=== PATIENT | female | born 1950 | race Caucasian/White ===

== ENCOUNTER 2016-11-18 11:57 | Outpatient (CLI) | payer OTHER ==
[~2016-11-18] VITALS: Ht 154.9 cm; Wt 60.0 kg
[~2016-11-18 11:57] MED LIST: /TIOT18INH; ACTO30TA; ALBU17IN INH; ALEVE PO; AMIT25TA PO; ASPI1TAB PO; ASPI81TA7 PO; ASPI81TAEC PO; ATOR1TAB21 PO; BABY81CH; CHAN0.5P; CIPR25SS; CIPR500T89 PO; CIPRHCOTIC; COLA100C PO; DEXA4TA PO; DULC5TAB PO; ENOX60IN3 SC; FLAG500T; FLAG500T PO; INSUDET SC; INSUH10VL SC; INSUH10VL SQ; LASI40TA PO; LEVA0.636 INH; LEVA31IN INH; LEXA5TAB13 PO; LISI-542 PO; LISI5TAB; LISI5TAB PO; LOVE0.4I2 SC; MEGE40TA PO; METF1000 PO; METFORMIN; MIRA3350 PO; NORCOBULK PO; NOVOLOG100 MG/ML; NPH INSULIN; POTA10CA PO; SODIUM CHLORIDE 0.9% INJ 10 ML SYR IV SCH; SPIR1CAP INH; SPIRIVA INH; TYLE650T30 PO; VYTO10TA41 PO; VYTO10TA5
[2016-11-18] MEDS ORDERED: POTASSIUM CHLORIDE IV ONE (12:30)
[2016-11-18] MEDS ORDERED: NS IV ONE (12:30)
[2016-11-18] MEDS ORDERED: MAGNESIUM SULFATE IV ONE (12:30)
== END 2016-11-18 14:50 | disposition home or self-care (01) ==
LOC: M INFU 11:57
PROVIDERS: ATTEND Internal Medicine
DX: C34.90 Malignant neoplasm of unspecified part of unspecified bronchus or lung (principal); C79.31 Secondary malignant neoplasm of brain; C79.82 Secondary malignant neoplasm of genital organs; Z79.4 Long term (current) use of insulin; Z79.899 Other long term (current) drug therapy; Z88.7 Allergy status to serum and vaccine; Z88.0 Allergy status to penicillin
CPT/HCPCS: 96360; 96361; J3475

== ENCOUNTER 2016-11-21 12:02 | Outpatient (CLI) | payer OTHER ==
[~2016-11-21 12:02] MED LIST changes: +MAGNESIUM SULFATE IV SCH; +NS IV SCH; +POTASSIUM CHLORIDE IV SCH
[2016-11-21 12:30] LABS: BASO % 0.8 % (0.0-1.0); EOS % 1.6 % (0.0-3.0); LARGE UNSTAINED CELL # 0.2 K/mm3 (0.0-0.4); LARGE UNSTAINED CELL % 5.4 % (0.0-4.0); LYMPH # 0.9 K/mm3 (1.5-4.5); LYMPH % 22.5 % (24.0-44.0); MEAN CORPUSCULAR HEMOGLOBIN 34.3 pg (27.0-33.0); MEAN CORPUSCULAR HGB CONC 32.3 g/dl (32.0-36.5); MEAN CORPUSCULAR VOLUME 106.3 fl (80.0-96.0); MONO # 0.3 K/mm3 (0.0-0.8); NEUTROPHILS # 2.1 K/mm3 (1.8-7.7); NEUTROPHILS % 60.6 % (36.0-66.0); PLATELET COUNT, AUTOMATED 214 k/mm3 (150-450); RED CELL DISTRIBUTION WIDTH 21.6 % (11.5-14.5); WHITE BLOOD COUNT 3.4 K/mm3 (4.0-10.0)
[2016-11-21 13:20] LABS: ALBUMIN 3.2 GM/DL (3.2-5.2); ALBUMIN/GLOBULIN RATIO 1.07 (1.00-1.93); ALKALINE PHOSPHATASE 75 U/L (45-117); ALT/SGPT 16 U/L (12-78); ANION GAP 11 MEQ/L (8-16); AST/SGOT 13 U/L (15-37); BILIRUBIN,TOTAL 0.1 MG/DL (0.2-1.0); BLOOD UREA NITROGEN 9 MG/DL (7-18); CALCIUM LEVEL 9.2 MG/DL (8.8-10.2); CARBON DIOXIDE LEVEL 28 MEQ/L (21-32); CHLORIDE LEVEL 103 MEQ/L (98-107); CREATININE FOR GFR 0.79 MG/DL (0.55-1.02); GLOMERULAR FILTRATION RATE > 60.0 (>45); GLUCOSE, FASTING 265 MG/DL (80-110); MAGNESIUM LEVEL 1.9 MG/DL (1.8-2.4); PHOSPHORUS LEVEL 4.1 MG/DL (2.5-4.9); POTASSIUM SERUM 4.4 MEQ/L (3.5-5.1); SODIUM LEVEL 142 MEQ/L (136-145); TOTAL PROTEIN 6.2 GM/DL (6.4-8.2)
== END 2016-11-21 14:30 | disposition home or self-care (01) ==
LOC: M INFU 12:02
PROVIDERS: ATTEND Internal Medicine
DX: C34.90 Malignant neoplasm of unspecified part of unspecified bronchus or lung (principal); C79.31 Secondary malignant neoplasm of brain
CPT/HCPCS: 80053; 83735; 84100; 85025; 96374; 96375; J3475

== ENCOUNTER 2016-11-24 12:05 | Outpatient (CLI) | payer OTHER ==
[~2016-11-24] VITALS: Ht 154.9 cm; Wt 60.0 kg
[~2016-11-24 12:05] MED LIST changes: -MAGNESIUM SULFATE IV SCH; -NS IV SCH; -POTASSIUM CHLORIDE IV SCH
[2016-11-24] MEDS ORDERED: NS IV SCH (12:30)
[2016-11-24] MEDS ORDERED: MAGNESIUM SULFATE IV SCH (12:30)
[2016-11-24] MEDS ORDERED: POTASSIUM CHLORIDE IV SCH (12:30)
== END 2016-11-24 15:00 | disposition home or self-care (01) ==
LOC: M INFU 12:05
PROVIDERS: ATTEND Internal Medicine
DX: C34.90 Malignant neoplasm of unspecified part of unspecified bronchus or lung (principal); C79.31 Secondary malignant neoplasm of brain; Z79.82 Long term (current) use of aspirin; Z79.899 Other long term (current) drug therapy; Z79.4 Long term (current) use of insulin; Z88.0 Allergy status to penicillin; Z88.7 Allergy status to serum and vaccine
CPT/HCPCS: 96360; 96361; J3475

== ENCOUNTER → 2016-11-26 | Outpatient (CLI) | payer OTHER ==
[~2016-11-26] MED LIST changes: -SODIUM CHLORIDE 0.9% INJ 10 ML SYR IV SCH
== END ==
LOC: M ONCR 13:55
PROVIDERS: ATTEND Radiology Radiation Oncology
DX: C34.02 Malignant neoplasm of left main bronchus (principal); C79.31 Secondary malignant neoplasm of brain

== ENCOUNTER 2016-11-27 12:05 | Outpatient (CLI) | payer OTHER ==
[~2016-11-27] VITALS: Ht 154.9 cm; Wt 60.0 kg
[~2016-11-27 12:05] MED LIST changes: +SODIUM CHLORIDE 0.9% INJ 10 ML SYR IV SCH
[2016-11-27] MEDS ORDERED: MAGNESIUM SULFATE IV SCH (13:00)
[2016-11-27] MEDS ORDERED: POTASSIUM CHLORIDE IV SCH (13:00)
[2016-11-27] MEDS ORDERED: NS IV SCH (13:00)
[2016-11-27 13:30] LABS: ALBUMIN 3.3 GM/DL (3.2-5.2); ALBUMIN/GLOBULIN RATIO 1.03 (1.00-1.93); ALKALINE PHOSPHATASE 82 U/L (45-117); ALT/SGPT 19 U/L (12-78); ANION GAP 8 MEQ/L (8-16); AST/SGOT 14 U/L (15-37); BILIRUBIN,TOTAL < 0.1 MG/DL (0.2-1.0); BLOOD UREA NITROGEN 12 MG/DL (7-18); CALCIUM LEVEL 9.4 MG/DL (8.8-10.2); CARBON DIOXIDE LEVEL 31 MEQ/L (21-32); CHLORIDE LEVEL 102 MEQ/L (98-107); CREATININE FOR GFR 0.82 MG/DL (0.55-1.02); GLOMERULAR FILTRATION RATE > 60.0 (>45); GLUCOSE, FASTING 300 MG/DL (80-110); PHOSPHORUS LEVEL 4.5 MG/DL (2.5-4.9); POTASSIUM SERUM 4.6 MEQ/L (3.5-5.1); SODIUM LEVEL 141 MEQ/L (136-145); TOTAL PROTEIN 6.5 GM/DL (6.4-8.2)
[2016-11-27 13:51] LABS: BASO % 0.6 % (0.0-1.0); LARGE UNSTAINED CELL # 0.2 K/mm3 (0.0-0.4); LARGE UNSTAINED CELL % 3.5 % (0.0-4.0); LYMPH % 20.8 % (24.0-44.0); MEAN CORPUSCULAR HEMOGLOBIN 34.1 pg (27.0-33.0); MEAN CORPUSCULAR HGB CONC 31.8 g/dl (32.0-36.5); MONO # 0.5 K/mm3 (0.0-0.8); MONO % 12.4 % (0.0-5.0); NEUTROPHILS # 2.6 K/mm3 (1.8-7.7); NEUTROPHILS % 61.7 % (36.0-66.0); PLATELET COUNT, AUTOMATED 374 k/mm3 (150-450); RED CELL DISTRIBUTION WIDTH 21.3 % (11.5-14.5); WHITE BLOOD COUNT 4.3 K/mm3 (4.0-10.0)
[2016-11-27 13:56] LABS: ADD MORPHOLOGY? YES
[2016-11-27 14:35] LABS: ANISOCYTOSIS 2+; HOWELL-JOLLY BODIES 1+; HYPOCHROMASIA 2+
[2016-11-27 14:36] LABS: ACANTHOCYTES 1+
[2016-11-27 14:37] LABS: CRENATED RBC 1+
== END 2016-11-27 14:45 | disposition home or self-care (01) ==
LOC: M INFU 12:05
PROVIDERS: ATTEND Internal Medicine
DX: C34.90 Malignant neoplasm of unspecified part of unspecified bronchus or lung (principal); C79.31 Secondary malignant neoplasm of brain; Z79.82 Long term (current) use of aspirin; Z79.899 Other long term (current) drug therapy; Z79.4 Long term (current) use of insulin; Z88.7 Allergy status to serum and vaccine; Z88.0 Allergy status to penicillin
CPT/HCPCS: 36415; 80053; 83735; 84100; 85025; 96360; 96361; J3475

== ENCOUNTER 2016-12-01 11:59 | Outpatient (CLI) | payer OTHER ==
[~2016-12-01] VITALS: Ht 154.9 cm; Wt 60.0 kg
[2016-12-01] MEDS ORDERED: POTASSIUM CHLORIDE IV SCH (12:30)
[2016-12-01] MEDS ORDERED: MAGNESIUM SULFATE IV SCH (12:30)
[2016-12-01] MEDS ORDERED: NS IV SCH (12:30)
== END 2016-12-01 15:00 | disposition home or self-care (01) ==
LOC: M INFU 11:59
PROVIDERS: ATTEND Internal Medicine
DX: C34.90 Malignant neoplasm of unspecified part of unspecified bronchus or lung (principal); C79.31 Secondary malignant neoplasm of brain; Z79.899 Other long term (current) drug therapy; Z88.7 Allergy status to serum and vaccine; Z88.0 Allergy status to penicillin
CPT/HCPCS: 96360; 96361; J3475

== ENCOUNTER → 2016-12-02 | Outpatient (CLI) | payer OTHER ==
[~2016-12-02] MED LIST changes: +ISOVUE-370 76% 100ML VIAL (Q9967) As Ordered ONE; -SODIUM CHLORIDE 0.9% INJ 10 ML SYR IV SCH
--- NOTE | 2016-12-02 12:26 | REP ---
WHOLE BODY RADIONUCLIDE BONE SCAN: HISTORY: Left leg and hip pain. History of lung carcinoma. The patient gives a history of bilateral humerus fractures. Comparison radiographs of the humerus were obtained bilaterally in April 06, 2016. TECHNIQUE: 22.0 mCi technetium 99m MDP is injected and standard whole body imaging is acquired. SCINTIGRAPHIC FINDINGS: There is intensely increased uptake in an obliquely oriented distribution in the proximal diaphysis of the right humerus corresponding to the obliquely oriented comminuted fracture seen in April 06, 2016 prior radiographs. There is also increased uptake in the region of the greater tuberosity of the left proximal humerus at the left shoulder. This corresponds to the location of the left proximal humeral fracture. There is mild degenerative uptake in the acromioclavicular joints bilaterally. There is uptake in bilateral kidneys and in the urinary bladder. No other abnormal skeletal uptake is appreciated. IMPRESSION: Increased uptake in the proximal humeral diaphysis on the right and in the greater tuberosity region of the proximal humerus on the left corresponding with fractures documented previously. No other abnormal skeletal uptake. Signed by Anshul Shaikh MD 12/02/2016 02:33 P
--- NOTE | 2016-12-03 08:59 | REP ---
Clinical: Lung cancer. Follow-up. Technique: Axial contrast enhanced images from the thoracic inlet to the upper abdomen using 100 ml Isovue 370 intravenous contrast material with coronal and sagittal re-formations. Comparison: 08/13/2016. Findings: Previously identified large complex enhancing and partially necrotic left hilar mass lesion appears to have nearly completely regressed and the same area as a small residual necrotic component measuring approximate 1.5 cm maximal diameter previously measuring approximately 4.8 cm maximal diameter. There is continued evidence for moderate left upper lobe consolidation as well as minimal lingular consolidation and trace left basilar atelectasis. Small areas of subpleural density along the posterior left lung are nonspecific and similar to prior examination. The lungs are otherwise well aerated and without further, new area of mass lesion. No pleural effusion. No pneumothorax. Tracheobronchial tree is patent. Mediastinal and hilar adenopathy remains stable with right hilar lymph nodes again measuring approximately 2.0 cm. Heart and pericardium are unchanged. Thoracic aorta demonstrates atherosclerotic changes without aneurysm or dissection. Musculoskeletal structures are intact. Left adrenal lesion is increased in size now measuring 2.5 cm diameter. Impression: 1. Previously noted left hilar mass considerably decreased in size now measuring approximately 1.5 cm maximal diameter. 2. Left upper lobe and lingular hide consolidations with minimal left basilar atelectasis. 3. 2.5 cm left adrenal lesion suspicious for metastatic focus and increased in size from prior examination. Signed by Yobany Moffett MD 12/03/2016 08:50 A
== END ==
LOC: M RAD 07:49
PROVIDERS: ATTEND Radiology Radiation Oncology
DX: C34.90 Malignant neoplasm of unspecified part of unspecified bronchus or lung (principal); M25.552 Pain in left hip

== ENCOUNTER 2016-12-04 12:02 | Outpatient (CLI) | payer OTHER ==
[~2016-12-04 12:02] MED LIST changes: +MAGNESIUM SULFATE IV SCH; +NS IV SCH; +POTASSIUM CHLORIDE IV SCH; +SODIUM CHLORIDE 0.9% INJ 10 ML SYR IV SCH
[2016-12-04 12:46] LABS: BASO % 0.3 % (0.0-1.0); EOS % 0.6 % (0.0-3.0); LARGE UNSTAINED CELL # 0.1 K/mm3 (0.0-0.4); LARGE UNSTAINED CELL % 2.6 % (0.0-4.0); LYMPH # 0.9 K/mm3 (1.5-4.5); LYMPH % 17.1 % (24.0-44.0); MEAN CORPUSCULAR HEMOGLOBIN 33.7 pg (27.0-33.0); MEAN CORPUSCULAR HGB CONC 31.6 g/dl (32.0-36.5); MEAN CORPUSCULAR VOLUME 106.6 fl (80.0-96.0); MONO # 0.6 K/mm3 (0.0-0.8); MONO % 10.2 % (0.0-5.0); NEUTROPHILS # 3.7 K/mm3 (1.8-7.7); NEUTROPHILS % 69.2 % (36.0-66.0); PLATELET COUNT, AUTOMATED 418 k/mm3 (150-450); WHITE BLOOD COUNT 5.4 K/mm3 (4.0-10.0)
[2016-12-04 13:14] LABS: ALBUMIN 3.1 GM/DL (3.2-5.2); ALBUMIN/GLOBULIN RATIO 0.94 (1.00-1.93); ALKALINE PHOSPHATASE 71 U/L (45-117); ALT/SGPT 17 U/L (12-78); ANION GAP 8 MEQ/L (8-16); AST/SGOT 14 U/L (15-37); BILIRUBIN,TOTAL < 0.1 MG/DL (0.2-1.0); BLOOD UREA NITROGEN 9 MG/DL (7-18); CARBON DIOXIDE LEVEL 30 MEQ/L (21-32); CHLORIDE LEVEL 104 MEQ/L (98-107); CREATININE FOR GFR 0.71 MG/DL (0.55-1.02); GLOMERULAR FILTRATION RATE > 60.0 (>45); GLUCOSE, FASTING 232 MG/DL (80-110); MAGNESIUM LEVEL 1.9 MG/DL (1.8-2.4); POTASSIUM SERUM 4.6 MEQ/L (3.5-5.1); SODIUM LEVEL 142 MEQ/L (136-145); TOTAL PROTEIN 6.4 GM/DL (6.4-8.2)
== END 2016-12-04 14:45 | disposition home or self-care (01) ==
LOC: M INFU 12:02
PROVIDERS: ATTEND Internal Medicine
DX: C34.90 Malignant neoplasm of unspecified part of unspecified bronchus or lung (principal); C79.31 Secondary malignant neoplasm of brain; E83.42 Hypomagnesemia; D64.9 Anemia, unspecified; Z88.0 Allergy status to penicillin; Z88.7 Allergy status to serum and vaccine; Z79.82 Long term (current) use of aspirin; Z79.899 Other long term (current) drug therapy; Z79.4 Long term (current) use of insulin
CPT/HCPCS: 36415; 80053; 83735; 84100; 85025; 96360; 96361; J3475

== ENCOUNTER → 2016-12-04 | Outpatient (CLI) | payer OTHER ==
[~2016-12-04] MED LIST changes: -ISOVUE-370 76% 100ML VIAL (Q9967) As Ordered ONE
== END ==
LOC: M ONCR 13:52
PROVIDERS: ATTEND Radiology Radiation Oncology
DX: C34.90 Malignant neoplasm of unspecified part of unspecified bronchus or lung (principal)

== ENCOUNTER 2016-12-08 12:10 | Outpatient (CLI) | payer OTHER ==
[~2016-12-08 12:10] MED LIST changes: -MAGNESIUM SULFATE IV SCH; -NS IV SCH; -POTASSIUM CHLORIDE IV SCH
[2016-12-08] MEDS ORDERED: POTASSIUM CHLORIDE IV ONE (12:15)
[2016-12-08] MEDS ORDERED: MAGNESIUM SULFATE IV ONE (12:15)
[2016-12-08] MEDS ORDERED: NS IV ONE (12:15)
== END 2016-12-08 14:45 | disposition home or self-care (01) ==
LOC: M INFU 12:10
PROVIDERS: ATTEND Internal Medicine
DX: C34.90 Malignant neoplasm of unspecified part of unspecified bronchus or lung (principal); C79.31 Secondary malignant neoplasm of brain; Z79.899 Other long term (current) drug therapy; Z79.82 Long term (current) use of aspirin; Z79.4 Long term (current) use of insulin; Z88.0 Allergy status to penicillin; Z88.7 Allergy status to serum and vaccine
CPT/HCPCS: 96360; 96361; J3475

== ENCOUNTER 2016-12-11 11:51 | Outpatient (CLI) | payer OTHER ==
[~2016-12-11] VITALS: Ht 154.9 cm; Wt 60.0 kg
[~2016-12-11 11:51] MED LIST changes: +MAGNESIUM SULFATE IV ONE; +NS IV ONE; +POTASSIUM CHLORIDE IV ONE
[2016-12-11 13:16] LABS: ALBUMIN 3.1 GM/DL (3.2-5.2); ALBUMIN/GLOBULIN RATIO 0.91 (1.00-1.93); ALKALINE PHOSPHATASE 70 U/L (45-117); ALT/SGPT 18 U/L (12-78); ANION GAP 5 MEQ/L (8-16); AST/SGOT 13 U/L (15-37); BILIRUBIN,TOTAL 0.2 MG/DL (0.2-1.0); BLOOD UREA NITROGEN 11 MG/DL (7-18); CALCIUM LEVEL 8.9 MG/DL (8.8-10.2); CARBON DIOXIDE LEVEL 32 MEQ/L (21-32); CHLORIDE LEVEL 104 MEQ/L (98-107); CREATININE FOR GFR 0.65 MG/DL (0.55-1.02); GLOMERULAR FILTRATION RATE > 60.0 (>45); GLUCOSE, FASTING 268 MG/DL (80-110); MAGNESIUM LEVEL 1.8 MG/DL (1.8-2.4); PHOSPHORUS LEVEL 3.5 MG/DL (2.5-4.9); POTASSIUM SERUM 4.4 MEQ/L (3.5-5.1); SODIUM LEVEL 141 MEQ/L (136-145); TOTAL PROTEIN 6.5 GM/DL (6.4-8.2)
[2016-12-11 13:27] LABS: BASO # 0.2 K/mm3 (0.0-0.2); BASO % 1.9 % (0.0-1.0); EOS % 0.5 % (0.0-3.0); LARGE UNSTAINED CELL # 0.1 K/mm3 (0.0-0.4); LARGE UNSTAINED CELL % 1.2 % (0.0-4.0); LYMPH # 0.9 K/mm3 (1.5-4.5); MEAN CORPUSCULAR HEMOGLOBIN 33.8 pg (27.0-33.0); MEAN CORPUSCULAR HGB CONC 31.8 g/dl (32.0-36.5); MEAN CORPUSCULAR VOLUME 106.2 fl (80.0-96.0); MONO # 0.6 K/mm3 (0.0-0.8); MONO % 8.2 % (0.0-5.0); NEUTROPHILS # 5.9 K/mm3 (1.8-7.7); NEUTROPHILS % 77.1 % (36.0-66.0); PLATELET COUNT, AUTOMATED 400 k/mm3 (150-450); RED CELL DISTRIBUTION WIDTH 19.2 % (11.5-14.5); WHITE BLOOD COUNT 7.6 K/mm3 (4.0-10.0)
== END 2016-12-11 14:50 | disposition home or self-care (01) ==
LOC: M INFU 11:51
PROVIDERS: ATTEND Internal Medicine
DX: C34.90 Malignant neoplasm of unspecified part of unspecified bronchus or lung (principal); C79.31 Secondary malignant neoplasm of brain; E83.42 Hypomagnesemia; D64.9 Anemia, unspecified; Z79.82 Long term (current) use of aspirin; Z79.899 Other long term (current) drug therapy; Z79.4 Long term (current) use of insulin; Z88.7 Allergy status to serum and vaccine; Z88.0 Allergy status to penicillin
CPT/HCPCS: 36415; 80053; 83735; 84100; 85025; 96360; 96361; J3475

== ENCOUNTER 2016-12-16 12:05 | Outpatient (CLI) | payer OTHER | END 2016-12-16 14:45 | disposition home or self-care (01) | LOC: M INFU 12:05 | PROVIDERS: ATTEND Internal Medicine | DX: C34.90 Malignant neoplasm of unspecified part of unspecified bronchus or lung (principal); C79.31 Secondary malignant neoplasm of brain; Z79.899 Other long term (current) drug therapy; Z79.4 Long term (current) use of insulin; Z88.7 Allergy status to serum and vaccine; Z88.0 Allergy status to penicillin | CPT/HCPCS: 96360; 96361; J3475 ==

== ENCOUNTER 2016-12-18 12:06 | Outpatient (CLI) | payer OTHER ==
[2016-12-18 12:51] LABS: ALBUMIN 3.2 GM/DL (3.2-5.2); ALBUMIN/GLOBULIN RATIO 0.97 (1.00-1.93); ALKALINE PHOSPHATASE 73 U/L (45-117); ALT/SGPT 18 U/L (12-78); ANION GAP 7 MEQ/L (8-16); AST/SGOT 12 U/L (15-37); BILIRUBIN,TOTAL 0.2 MG/DL (0.2-1.0); BLOOD UREA NITROGEN 11 MG/DL (7-18); CALCIUM LEVEL 9.3 MG/DL (8.8-10.2); CARBON DIOXIDE LEVEL 31 MEQ/L (21-32); CHLORIDE LEVEL 104 MEQ/L (98-107); CREATININE FOR GFR 0.68 MG/DL (0.55-1.02); GLOMERULAR FILTRATION RATE > 60.0 (>45); GLUCOSE, FASTING 213 MG/DL (80-110); MAGNESIUM LEVEL 1.9 MG/DL (1.8-2.4); PHOSPHORUS LEVEL 4.1 MG/DL (2.5-4.9); POTASSIUM SERUM 4.6 MEQ/L (3.5-5.1); SODIUM LEVEL 142 MEQ/L (136-145); TOTAL PROTEIN 6.5 GM/DL (6.4-8.2)
[2016-12-18 13:04] LABS: BASO % 0.4 % (0.0-1.0); EOS # 0.1 K/mm3 (0.0-0.50); EOS % 1.3 % (0.0-3.0); LARGE UNSTAINED CELL # 0.2 K/mm3 (0.0-0.4); LARGE UNSTAINED CELL % 2.6 % (0.0-4.0); LYMPH # 1.1 K/mm3 (1.5-4.5); LYMPH % 17.9 % (24.0-44.0); MEAN CORPUSCULAR HEMOGLOBIN 33.1 pg (27.0-33.0); MEAN CORPUSCULAR HGB CONC 31.2 g/dl (32.0-36.5); MEAN CORPUSCULAR VOLUME 106.2 fl (80.0-96.0); MONO # 0.5 K/mm3 (0.0-0.8); MONO % 8.9 % (0.0-5.0); NEUTROPHILS # 4.1 K/mm3 (1.8-7.7); NEUTROPHILS % 68.8 % (36.0-66.0); PLATELET COUNT, AUTOMATED 415 k/mm3 (150-450); RED CELL DISTRIBUTION WIDTH 16.9 % (11.5-14.5)
== END 2016-12-18 14:45 | disposition home or self-care (01) ==
LOC: M INFU 12:06
PROVIDERS: ATTEND Internal Medicine
DX: C34.90 Malignant neoplasm of unspecified part of unspecified bronchus or lung (principal); C79.31 Secondary malignant neoplasm of brain; Z79.899 Other long term (current) drug therapy; Z79.82 Long term (current) use of aspirin; Z79.4 Long term (current) use of insulin; Z88.7 Allergy status to serum and vaccine; Z88.0 Allergy status to penicillin
CPT/HCPCS: 36415; 80053; 83735; 84100; 85025; 96360; 96361; J3475

== ENCOUNTER 2016-12-22 12:01 | Outpatient (CLI) | payer OTHER ==
[~2016-12-22] VITALS: Ht 154.9 cm; Wt 60.0 kg
== END 2016-12-22 14:50 | disposition home or self-care (01) ==
LOC: M INFU 12:01
PROVIDERS: ATTEND Internal Medicine
DX: C34.90 Malignant neoplasm of unspecified part of unspecified bronchus or lung (principal); C79.31 Secondary malignant neoplasm of brain; Z79.899 Other long term (current) drug therapy; Z79.82 Long term (current) use of aspirin; Z79.4 Long term (current) use of insulin; Z88.7 Allergy status to serum and vaccine; Z88.0 Allergy status to penicillin
CPT/HCPCS: 96360; 96361; J3475

== ENCOUNTER 2016-12-25 12:05 | Outpatient (CLI) | payer OTHER ==
[~2016-12-25] VITALS: Ht 154.9 cm; Wt 60.0 kg
[~2016-12-25 12:05] MED LIST changes: +MAGNESIUM SULFATE IV SCH; +NS IV SCH; +POTASSIUM CHLORIDE IV SCH
[2016-12-25 13:33] LABS: BASO % 0.4 % (0.0-1.0); EOS # 0.1 K/mm3 (0.0-0.50); EOS % 1.2 % (0.0-3.0); LARGE UNSTAINED CELL # 0.2 K/mm3 (0.0-0.4); LARGE UNSTAINED CELL % 3.3 % (0.0-4.0); MEAN CORPUSCULAR HEMOGLOBIN 32.8 pg (27.0-33.0); MEAN CORPUSCULAR HGB CONC 30.5 g/dl (32.0-36.5); MEAN CORPUSCULAR VOLUME 107.7 fl (80.0-96.0); MONO # 0.5 K/mm3 (0.0-0.8); MONO % 7.2 % (0.0-5.0); NEUTROPHILS # 4.7 K/mm3 (1.8-7.7); NEUTROPHILS % 72.8 % (36.0-66.0); PLATELET COUNT, AUTOMATED 377 k/mm3 (150-450); RED CELL DISTRIBUTION WIDTH 16.4 % (11.5-14.5); WHITE BLOOD COUNT 6.4 K/mm3 (4.0-10.0)
[2016-12-25 13:53] LABS: ALBUMIN 3.1 GM/DL (3.2-5.2); ALBUMIN/GLOBULIN RATIO 0.91 (1.00-1.93); ALKALINE PHOSPHATASE 75 U/L (45-117); ALT/SGPT 18 U/L (12-78); ANION GAP 7 MEQ/L (8-16); AST/SGOT 17 U/L (15-37); BILIRUBIN,TOTAL 0.1 MG/DL (0.2-1.0); BLOOD UREA NITROGEN 14 MG/DL (7-18); CARBON DIOXIDE LEVEL 30 MEQ/L (21-32); CHLORIDE LEVEL 102 MEQ/L (98-107); CREATININE FOR GFR 0.86 MG/DL (0.55-1.02); GLOMERULAR FILTRATION RATE > 60.0 (>45); GLUCOSE, FASTING 320 MG/DL (80-110); MAGNESIUM LEVEL 1.9 MG/DL (1.8-2.4); PHOSPHORUS LEVEL 4.4 MG/DL (2.5-4.9); POTASSIUM SERUM 5.1 MEQ/L (3.5-5.1); SODIUM LEVEL 139 MEQ/L (136-145); TOTAL PROTEIN 6.5 GM/DL (6.4-8.2)
[2016-12-25 13:56] LABS: ADD MORPHOLOGY? YES
[2016-12-25 14:54] LABS: ANISOCYTOSIS 1+
[2016-12-25 14:55] LABS: HYPOCHROMASIA 1+; SCHISTOCYTES 1+
== END 2016-12-25 15:05 | disposition home or self-care (01) ==
LOC: M INFU 12:05
PROVIDERS: ATTEND Internal Medicine
DX: C34.90 Malignant neoplasm of unspecified part of unspecified bronchus or lung (principal); C79.31 Secondary malignant neoplasm of brain; Z79.899 Other long term (current) drug therapy; Z79.4 Long term (current) use of insulin; Z88.7 Allergy status to serum and vaccine; Z88.0 Allergy status to penicillin
CPT/HCPCS: 36415; 80053; 83735; 84100; 85025; 96360; 96361; J3475

== ENCOUNTER 2016-12-29 12:00 | Outpatient (CLI) | payer OTHER ==
[~2016-12-29 12:00] MED LIST changes: -MAGNESIUM SULFATE IV SCH; -NS IV SCH; -POTASSIUM CHLORIDE IV SCH
== END 2016-12-29 14:30 | disposition home or self-care (01) ==
LOC: M INFU 12:00
PROVIDERS: ATTEND Internal Medicine
DX: C34.90 Malignant neoplasm of unspecified part of unspecified bronchus or lung (principal); C79.31 Secondary malignant neoplasm of brain; Z79.899 Other long term (current) drug therapy; Z79.82 Long term (current) use of aspirin; Z79.4 Long term (current) use of insulin; Z88.7 Allergy status to serum and vaccine; Z88.0 Allergy status to penicillin
CPT/HCPCS: 96360; 96361; J3475

== ENCOUNTER 2017-01-01 12:11 | Outpatient (CLI) | payer OTHER ==
[2017-01-01 12:43] LABS: BASO % 0.6 % (0.0-1.0); EOS # 0.1 K/mm3 (0.0-0.50); EOS % 1.7 % (0.0-3.0); LARGE UNSTAINED CELL # 0.2 K/mm3 (0.0-0.4); LARGE UNSTAINED CELL % 3.9 % (0.0-4.0); LYMPH # 1.1 K/mm3 (1.5-4.5); LYMPH % 18.2 % (24.0-44.0); MEAN CORPUSCULAR HEMOGLOBIN 33.2 pg (27.0-33.0); MEAN CORPUSCULAR HGB CONC 31.7 g/dl (32.0-36.5); MEAN CORPUSCULAR VOLUME 104.7 fl (80.0-96.0); MONO # 0.5 K/mm3 (0.0-0.8); MONO % 7.7 % (0.0-5.0); NEUTROPHILS % 67.8 % (36.0-66.0); PLATELET COUNT, AUTOMATED 335 k/mm3 (150-450); RED CELL DISTRIBUTION WIDTH 15.6 % (11.5-14.5); WHITE BLOOD COUNT 5.9 K/mm3 (4.0-10.0)
[2017-01-01 13:12] LABS: ALBUMIN 3.1 GM/DL (3.2-5.2); ALBUMIN/GLOBULIN RATIO 0.89 (1.00-1.93); ALKALINE PHOSPHATASE 73 U/L (45-117); ALT/SGPT 21 U/L (12-78); ANION GAP 8 MEQ/L (8-16); AST/SGOT 19 U/L (15-37); BILIRUBIN,TOTAL 0.2 MG/DL (0.2-1.0); BLOOD UREA NITROGEN 11 MG/DL (7-18); CALCIUM LEVEL 8.9 MG/DL (8.8-10.2); CARBON DIOXIDE LEVEL 29 MEQ/L (21-32); CHLORIDE LEVEL 104 MEQ/L (98-107); CREATININE FOR GFR 0.81 MG/DL (0.55-1.02); GLOMERULAR FILTRATION RATE > 60.0 (>45); GLUCOSE, FASTING 249 MG/DL (80-110); MAGNESIUM LEVEL 1.9 MG/DL (1.8-2.4); PHOSPHORUS LEVEL 4.8 MG/DL (2.5-4.9); POTASSIUM SERUM 4.8 MEQ/L (3.5-5.1); SODIUM LEVEL 141 MEQ/L (136-145); TOTAL PROTEIN 6.6 GM/DL (6.4-8.2)
[2017-01-01] MEDS ORDERED: DRON5CAP6 PO (14:36)
[2017-01-01] MEDS ORDERED: TRAM50TA2 PO (14:37)
== END 2017-01-01 15:00 | disposition home or self-care (01) ==
LOC: M INFU 12:11
PROVIDERS: ATTEND Internal Medicine
DX: E83.42 Hypomagnesemia (principal); C34.90 Malignant neoplasm of unspecified part of unspecified bronchus or lung; C79.31 Secondary malignant neoplasm of brain; D64.9 Anemia, unspecified; Z79.899 Other long term (current) drug therapy; Z79.4 Long term (current) use of insulin; Z79.82 Long term (current) use of aspirin; Z88.7 Allergy status to serum and vaccine; Z88.0 Allergy status to penicillin
CPT/HCPCS: 80053; 83735; 84100; 85025; 96360; 96361; J3475

== ENCOUNTER 2017-01-05 12:02 | Outpatient (CLI) | payer OTHER ==
[~2017-01-05] VITALS: Ht 154.9 cm; Wt 60.0 kg
[~2017-01-05 12:02] MED LIST changes: +DRON5CAP6 PO; -MAGNESIUM SULFATE IV ONE; +MAGNESIUM SULFATE IV SCH; -NS IV ONE; +NS IV SCH; -POTASSIUM CHLORIDE IV ONE; +POTASSIUM CHLORIDE IV SCH; +TRAM50TA2 PO
== END 2017-01-05 14:40 | disposition home or self-care (01) ==
LOC: M INFU 12:02
PROVIDERS: ATTEND Internal Medicine
DX: C34.90 Malignant neoplasm of unspecified part of unspecified bronchus or lung (principal); C79.31 Secondary malignant neoplasm of brain; Z79.899 Other long term (current) drug therapy; Z79.82 Long term (current) use of aspirin; Z79.4 Long term (current) use of insulin; Z88.0 Allergy status to penicillin; Z88.7 Allergy status to serum and vaccine
CPT/HCPCS: 96360; 96361; J3475

== ENCOUNTER 2017-01-08 08:56 | Outpatient (CLI) | payer OTHER ==
[~2017-01-08] VITALS: Ht 154.9 cm; Wt 60.0 kg
[~2017-01-08 08:56] MED LIST changes: +MAGNESIUM SULFATE IV ONE; -MAGNESIUM SULFATE IV SCH; +NS IV ONE; -NS IV SCH; +POTASSIUM CHLORIDE IV ONE; -POTASSIUM CHLORIDE IV SCH; -SODIUM CHLORIDE 0.9% INJ 10 ML SYR IV SCH
[2017-01-08] MEDS ORDERED: SODIUM CHLORIDE 0.9% INJ 10 ML SYR IV SCH (09:00)
[2017-01-08 10:03] LABS: BASO % 0.3 % (0.0-1.0); EOS # 0.2 K/mm3 (0.0-0.50); EOS % 2.5 % (0.0-3.0); LARGE UNSTAINED CELL # 0.2 K/mm3 (0.0-0.4); LARGE UNSTAINED CELL % 2.4 % (0.0-4.0); LYMPH % 15.1 % (24.0-44.0); MEAN CORPUSCULAR HEMOGLOBIN 32.7 pg (27.0-33.0); MEAN CORPUSCULAR VOLUME 105.4 fl (80.0-96.0); MONO # 0.6 K/mm3 (0.0-0.8); MONO % 8.1 % (0.0-5.0); NEUTROPHILS # 4.8 K/mm3 (1.8-7.7); NEUTROPHILS % 71.5 % (36.0-66.0); PLATELET COUNT, AUTOMATED 316 k/mm3 (150-450); WHITE BLOOD COUNT 6.8 K/mm3 (4.0-10.0)
[2017-01-08 10:07] LABS: ALBUMIN 3.2 GM/DL (3.2-5.2); ALKALINE PHOSPHATASE 78 U/L (45-117); ALT/SGPT 22 U/L (12-78); ANION GAP 8 MEQ/L (8-16); AST/SGOT 19 U/L (15-37); BILIRUBIN,TOTAL 0.2 MG/DL (0.2-1.0); BLOOD UREA NITROGEN 14 MG/DL (7-18); CALCIUM LEVEL 9.3 MG/DL (8.8-10.2); CARBON DIOXIDE LEVEL 31 MEQ/L (21-32); CHLORIDE LEVEL 103 MEQ/L (98-107); CREATININE FOR GFR 0.67 MG/DL (0.55-1.02); GLOMERULAR FILTRATION RATE > 60.0 (>45); GLUCOSE, FASTING 262 MG/DL (80-110); MAGNESIUM LEVEL 1.9 MG/DL (1.8-2.4); POTASSIUM SERUM 4.7 MEQ/L (3.5-5.1); SODIUM LEVEL 142 MEQ/L (136-145); TOTAL PROTEIN 6.4 GM/DL (6.4-8.2)
== END 2017-01-08 11:35 | disposition home or self-care (01) ==
LOC: M INFU 08:56
PROVIDERS: ATTEND Internal Medicine
DX: E83.42 Hypomagnesemia (principal); D64.9 Anemia, unspecified; C34.90 Malignant neoplasm of unspecified part of unspecified bronchus or lung; C79.31 Secondary malignant neoplasm of brain; Z79.899 Other long term (current) drug therapy; Z79.4 Long term (current) use of insulin; Z79.82 Long term (current) use of aspirin; Z88.0 Allergy status to penicillin; Z88.7 Allergy status to serum and vaccine
CPT/HCPCS: 36415; 80053; 83735; 84100; 85025; 96360; 96361; J3475

== ENCOUNTER 2017-01-12 12:00 | Outpatient (CLI) | payer OTHER ==
[~2017-01-12 12:00] MED LIST changes: +SODIUM CHLORIDE 0.9% INJ 10 ML SYR IV SCH
== END 2017-01-12 14:30 | disposition home or self-care (01) ==
LOC: M INFU 12:00
PROVIDERS: ATTEND Internal Medicine
DX: C34.90 Malignant neoplasm of unspecified part of unspecified bronchus or lung (principal); C79.31 Secondary malignant neoplasm of brain; Z79.899 Other long term (current) drug therapy; Z79.82 Long term (current) use of aspirin; Z79.4 Long term (current) use of insulin; Z88.7 Allergy status to serum and vaccine; Z88.0 Allergy status to penicillin
CPT/HCPCS: 96360; J3475

== ENCOUNTER 2017-01-15 12:21 | Outpatient (CLI) | payer OTHER ==
[~2017-01-15] VITALS: Ht 154.9 cm; Wt 60.0 kg
[2017-01-15 12:59] LABS: BASO % 0.7 % (0.0-1.0); EOS # 0.1 K/mm3 (0.0-0.50); EOS % 1.7 % (0.0-3.0); LARGE UNSTAINED CELL # 0.1 K/mm3 (0.0-0.4); LARGE UNSTAINED CELL % 2.2 % (0.0-4.0); LYMPH # 1.5 K/mm3 (1.5-4.5); LYMPH % 24.4 % (24.0-44.0); MEAN CORPUSCULAR HEMOGLOBIN 33.6 pg (27.0-33.0); MEAN CORPUSCULAR HGB CONC 31.9 g/dl (32.0-36.5); MEAN CORPUSCULAR VOLUME 105.2 fl (80.0-96.0); MONO # 0.4 K/mm3 (0.0-0.8); MONO % 6.4 % (0.0-5.0); NEUTROPHILS # 3.6 K/mm3 (1.8-7.7); NEUTROPHILS % 64.6 % (36.0-66.0); PLATELET COUNT, AUTOMATED 300 k/mm3 (150-450); RED CELL DISTRIBUTION WIDTH 14.9 % (11.5-14.5); WHITE BLOOD COUNT 5.6 K/mm3 (4.0-10.0)
[2017-01-15 13:54] LABS: BLOOD UREA NITROGEN 14 MG/DL (7-18); CREATININE FOR GFR 0.78 MG/DL (0.55-1.02); GLOMERULAR FILTRATION RATE > 60.0 (>45); GLUCOSE, FASTING 340 MG/DL (80-110)
[2017-01-15 13:55] LABS: ALBUMIN 3.1 GM/DL (3.2-5.2); ALBUMIN/GLOBULIN RATIO 0.94 (1.00-1.93); ALKALINE PHOSPHATASE 86 U/L (45-117); ALT/SGPT 23 U/L (12-78); ANION GAP 9 MEQ/L (8-16); AST/SGOT 25 U/L (15-37); BILIRUBIN,TOTAL 0.2 MG/DL (0.2-1.0); CALCIUM LEVEL 8.6 MG/DL (8.8-10.2); CARBON DIOXIDE LEVEL 28 MEQ/L (21-32); CHLORIDE LEVEL 101 MEQ/L (98-107); MAGNESIUM LEVEL 1.9 MG/DL (1.8-2.4); PHOSPHORUS LEVEL 3.5 MG/DL (2.5-4.9); POTASSIUM SERUM 4.7 MEQ/L (3.5-5.1); SODIUM LEVEL 138 MEQ/L (136-145); TOTAL PROTEIN 6.4 GM/DL (6.4-8.2)
== END 2017-01-15 15:00 | disposition home or self-care (01) ==
LOC: M INFU 12:21
PROVIDERS: ATTEND Internal Medicine
DX: C34.90 Malignant neoplasm of unspecified part of unspecified bronchus or lung (principal); C79.31 Secondary malignant neoplasm of brain; Z79.899 Other long term (current) drug therapy; Z79.82 Long term (current) use of aspirin; Z79.4 Long term (current) use of insulin; Z88.7 Allergy status to serum and vaccine; Z88.0 Allergy status to penicillin
CPT/HCPCS: 36415; 80053; 83735; 84100; 85025; 96360; 96361; J3475

== ENCOUNTER 2017-01-19 12:58 | Outpatient (CLI) | payer OTHER ==
[~2017-01-19] VITALS: Ht 154.9 cm; Wt 60.0 kg
[~2017-01-19 12:58] MED LIST changes: -MAGNESIUM SULFATE IV ONE; -NS IV ONE; -POTASSIUM CHLORIDE IV ONE
[2017-01-19] MEDS ORDERED: NS IV SCH (13:00)
[2017-01-19] MEDS ORDERED: MAGNESIUM SULFATE IV SCH (13:00)
[2017-01-19] MEDS ORDERED: POTASSIUM CHLORIDE IV SCH (13:00)
== END 2017-01-19 15:15 | disposition home or self-care (01) ==
LOC: M INFU 12:58
PROVIDERS: ATTEND Internal Medicine
DX: C34.90 Malignant neoplasm of unspecified part of unspecified bronchus or lung (principal); C79.31 Secondary malignant neoplasm of brain; Z88.0 Allergy status to penicillin; Z88.7 Allergy status to serum and vaccine; Z79.899 Other long term (current) drug therapy; Z79.82 Long term (current) use of aspirin; Z79.4 Long term (current) use of insulin
CPT/HCPCS: 96360; 96361; J3475

== ENCOUNTER 2017-01-22 12:04 | Outpatient (CLI) | payer OTHER ==
[~2017-01-22] VITALS: Ht 154.9 cm; Wt 60.0 kg
[~2017-01-22 12:04] MED LIST changes: +MAGNESIUM SULFATE IV ONE; +NS IV ONE; +POTASSIUM CHLORIDE IV ONE
[2017-01-22 13:11] LABS: BASO % 0.4 % (0.0-1.0); EOS # 0.1 K/mm3 (0.0-0.50); EOS % 1.8 % (0.0-3.0); LARGE UNSTAINED CELL # 0.1 K/mm3 (0.0-0.4); LARGE UNSTAINED CELL % 1.6 % (0.0-4.0); LYMPH # 1.6 K/mm3 (1.5-4.5); LYMPH % 21.5 % (24.0-44.0); MEAN CORPUSCULAR HEMOGLOBIN 33.1 pg (27.0-33.0); MEAN CORPUSCULAR HGB CONC 31.9 g/dl (32.0-36.5); MEAN CORPUSCULAR VOLUME 103.6 fl (80.0-96.0); MONO # 0.5 K/mm3 (0.0-0.8); MONO % 6.4 % (0.0-5.0); NEUTROPHILS # 4.8 K/mm3 (1.8-7.7); NEUTROPHILS % 68.3 % (36.0-66.0); PLATELET COUNT, AUTOMATED 304 k/mm3 (150-450); RED CELL DISTRIBUTION WIDTH 14.7 % (11.5-14.5)
[2017-01-22 14:02] LABS: ALBUMIN 3.2 GM/DL (3.2-5.2); ALBUMIN/GLOBULIN RATIO 1.03 (1.00-1.93); ALKALINE PHOSPHATASE 85 U/L (45-117); ALT/SGPT 23 U/L (12-78); ANION GAP 10 MEQ/L (8-16); AST/SGOT 28 U/L (15-37); BILIRUBIN,TOTAL 0.2 MG/DL (0.2-1.0); BLOOD UREA NITROGEN 16 MG/DL (7-18); CALCIUM LEVEL 9.3 MG/DL (8.8-10.2); CARBON DIOXIDE LEVEL 29 MEQ/L (21-32); CHLORIDE LEVEL 101 MEQ/L (98-107); CREATININE FOR GFR 0.69 MG/DL (0.55-1.02); GLOMERULAR FILTRATION RATE > 60.0 (>45); GLUCOSE, FASTING 271 MG/DL (80-110); PHOSPHORUS LEVEL 4.4 MG/DL (2.5-4.9); POTASSIUM SERUM 4.7 MEQ/L (3.5-5.1); SODIUM LEVEL 140 MEQ/L (136-145); TOTAL PROTEIN 6.3 GM/DL (6.4-8.2)
== END 2017-01-22 15:20 | disposition home or self-care (01) ==
LOC: M INFU 12:04
PROVIDERS: ATTEND Internal Medicine
DX: C34.90 Malignant neoplasm of unspecified part of unspecified bronchus or lung (principal); C79.31 Secondary malignant neoplasm of brain; Z79.899 Other long term (current) drug therapy; Z79.82 Long term (current) use of aspirin; Z79.4 Long term (current) use of insulin; Z88.0 Allergy status to penicillin; Z88.7 Allergy status to serum and vaccine
CPT/HCPCS: 36415; 80053; 83735; 84100; 85025; 96360; 96361; J3475

== ENCOUNTER 2017-01-26 11:46 | Outpatient (CLI) | payer OTHER ==
[~2017-01-26 11:46] MED LIST changes: -MAGNESIUM SULFATE IV ONE; -NS IV ONE; -POTASSIUM CHLORIDE IV ONE
[2017-01-26] MEDS ORDERED: MAGNESIUM SULFATE IV ONE (12:00)
[2017-01-26] MEDS ORDERED: NS IV ONE (12:00)
[2017-01-26] MEDS ORDERED: POTASSIUM CHLORIDE IV ONE (12:00)
== END 2017-01-26 15:20 | disposition home or self-care (01) ==
LOC: M INFU 11:46
PROVIDERS: ATTEND Internal Medicine
DX: C34.90 Malignant neoplasm of unspecified part of unspecified bronchus or lung (principal); C79.31 Secondary malignant neoplasm of brain; Z79.899 Other long term (current) drug therapy; Z79.82 Long term (current) use of aspirin; Z79.4 Long term (current) use of insulin; Z88.0 Allergy status to penicillin; Z88.7 Allergy status to serum and vaccine
CPT/HCPCS: 96360; 96361; J3475

== ENCOUNTER → 2017-01-27 | Outpatient (CLI) | payer OTHER ==
[~2017-01-27] MED LIST changes: +GASTROGRAFIN SOLUTION 30ML (Q9963) As Ordered ONE; +ISOVUE-370 76% 100ML VIAL (Q9967) As Ordered ONE; -SODIUM CHLORIDE 0.9% INJ 10 ML SYR IV SCH
--- NOTE | 2017-01-27 16:27 | REP ---
CT study abdomen pelvis without and with IV contrast: With oral contrast: History: Restaging small cell lung carcinoma. Comparison CT study of the abdomen and pelvis is from 08/13/2016. Also reviewed the images from chest CT 12/02/2016. CT contrast dose: 100 mL of Isovue [address] findings: There are unfortunately multiple new liver masses consistent with hepatic metastatic disease. These are distributed in the left and right lobes and range in size from 0.8 cm to 4.8 cm. They are quite numerous. The previously noted left adrenal mass is a little larger measuring 3.2 x 2.7 cm. No right adrenal mass is seen. There is metastatic lymphadenopathy in the celiac axis and periportal lymph nodes. The largest of these lymph nodes measures 2.5 x 2.0 cm. The patient is status post splenectomy and partial pancreatectomy. There is a new mass in the head of the pancreas on today's CT study consistent with a pancreatic metastasis. This measures 1.6 cm in diameter. The kidneys enhance symmetrically and remain morphologically intact. No renal mass is seen. There are multiple subcutaneous nodules in the skin of the anterior abdominal wall some of which contain air fluid levels. These are consistent with injection sites. There is mild diverticulosis of the sigmoid colon. No abdominal wall defect is seen. Bone window settings show no bony destructive lesion. Impression: There is evidence of progression in that there are innumerable hepatic metastatic lesions. There is new celiac axis and periportal lymphadenopathy and there is progression in a previously noted left adrenal mass. This is also new from the July [address] study. Signed by Anshul Shaikh MD 01/27/2017 04:59 P
--- NOTE | 2017-01-27 16:41 | REP ---
CT study of the chest with IV contrast: History: Re-stage small cell lung carcinoma. Comparison study: 12/02/2016. This prior study was read as showing a 2.5 cm new left adrenal mass suspicious for metastasis. Comparison is also made with chest CT study from 08/13/2016. CT contrast dose: 100 mL of Isovue [address] findings: There is a left subclavian [id number] with its tip in the superior vena cava. A right upper extremity contrast injection was performed. No hilar or mediastinal mass or adenopathy is observed. The previously noted pattern of fibrosis and atelectasis in the left upper lobe is somewhat improved. This is consistent with postradiation change. There is a small new nodule 4 mm in diameter in the right upper lobe on image number 35 of 96 in series 404. No new pulmonary mass lesion is seen. No bony destructive lesion is seen in the chest. Multiple hepatic metastatic lesions have developed. The left adrenal gland is a little larger measuring 3.1 cm in diameter. Impression: New liver metastases. Left adrenal mass has enlarged somewhat since the prior study. Improved postradiation change left lung. There is a new nodule in the right upper lobe of the lung measuring 0.4 cm in diameter. This is visible on image number 35 of 96 in series 404 of today's study. No other pulmonary nodule is appreciated. Signed by Anshul Shaikh MD 01/27/2017 05:00 P
== END ==
LOC: M RAD 12:41
PROVIDERS: ATTEND Internal Medicine Hematology & Oncology
DX: C34.90 Malignant neoplasm of unspecified part of unspecified bronchus or lung (principal)

== ENCOUNTER 2017-01-29 11:56 | Outpatient (CLI) | payer OTHER ==
[~2017-01-29] VITALS: Ht 154.9 cm; Wt 60.0 kg
[~2017-01-29 11:56] MED LIST changes: -GASTROGRAFIN SOLUTION 30ML (Q9963) As Ordered ONE; -ISOVUE-370 76% 100ML VIAL (Q9967) As Ordered ONE; +SODIUM CHLORIDE 0.9% INJ 10 ML SYR IV SCH
[2017-01-29] MEDS ORDERED: MAGNESIUM SULFATE IV SCH (12:00)
[2017-01-29] MEDS ORDERED: NS IV SCH (12:00)
[2017-01-29] MEDS ORDERED: POTASSIUM CHLORIDE IV SCH (12:00)
== END 2017-01-29 14:35 | disposition home or self-care (01) ==
LOC: M INFU 11:56
PROVIDERS: ATTEND Internal Medicine
DX: C34.90 Malignant neoplasm of unspecified part of unspecified bronchus or lung (principal); C79.31 Secondary malignant neoplasm of brain; Z79.899 Other long term (current) drug therapy; Z79.82 Long term (current) use of aspirin; Z79.4 Long term (current) use of insulin; Z88.7 Allergy status to serum and vaccine; Z88.0 Allergy status to penicillin
CPT/HCPCS: 96360; 96361; J3475

== ENCOUNTER 2017-02-03 11:53 | Outpatient (CLI) | payer OTHER ==
[2017-02-03] MEDS ORDERED: NS IV ONE (12:00)
[2017-02-03] MEDS ORDERED: MAGNESIUM SULFATE IV ONE (12:00)
[2017-02-03] MEDS ORDERED: POTASSIUM CHLORIDE IV ONE (12:00)
== END 2017-02-03 14:30 | disposition home or self-care (01) ==
LOC: M INFU 11:53
PROVIDERS: ATTEND Internal Medicine
DX: C34.90 Malignant neoplasm of unspecified part of unspecified bronchus or lung (principal); C79.31 Secondary malignant neoplasm of brain; R53.1 Weakness; J43.9 Emphysema, unspecified; E11.9 Type 2 diabetes mellitus without complications; M54.9 Dorsalgia, unspecified; Z87.891 Personal history of nicotine dependence; Z92.3 Personal history of irradiation; Z99.81 Dependence on supplemental oxygen; Z79.4 Long term (current) use of insulin; Z79.82 Long term (current) use of aspirin; Z79.899 Other long term (current) drug therapy; Z88.0 Allergy status to penicillin; Z88.7 Allergy status to serum and vaccine
CPT/HCPCS: 96360; 96361; J3475

== ENCOUNTER 2017-02-05 10:41 | Outpatient (CLI) | payer OTHER ==
[~2017-02-05 10:41] MED LIST changes: +MAGNESIUM SULFATE IV SCH; +NS IV SCH; +POTASSIUM CHLORIDE IV SCH
[2017-02-05 11:23] LABS: BASO % 0.5 % (0.0-1.0); EOS # 0.1 K/mm3 (0.0-0.50); EOS % 1.1 % (0.0-3.0); LARGE UNSTAINED CELL # 0.1 K/mm3 (0.0-0.4); LARGE UNSTAINED CELL % 1.8 % (0.0-4.0); LYMPH # 1.5 K/mm3 (1.5-4.5); LYMPH % 20.3 % (24.0-44.0); MEAN CORPUSCULAR HEMOGLOBIN 32.1 pg (27.0-33.0); MEAN CORPUSCULAR HGB CONC 31.3 g/dl (32.0-36.5); MEAN CORPUSCULAR VOLUME 102.5 fl (80.0-96.0); MONO # 0.4 K/mm3 (0.0-0.8); MONO % 5.9 % (0.0-5.0); NEUTROPHILS # 4.6 K/mm3 (1.8-7.7); NEUTROPHILS % 70.3 % (36.0-66.0); PLATELET COUNT, AUTOMATED 287 k/mm3 (150-450); RED CELL DISTRIBUTION WIDTH 14.4 % (11.5-14.5); WHITE BLOOD COUNT 6.6 K/mm3 (4.0-10.0)
[2017-02-05 11:46] LABS: ALBUMIN 3.2 GM/DL (3.2-5.2); ALBUMIN/GLOBULIN RATIO 0.97 (1.00-1.93); ALKALINE PHOSPHATASE 94 U/L (45-117); ALT/SGPT 32 U/L (12-78); ANION GAP 7 MEQ/L (8-16); AST/SGOT 49 U/L (15-37); BILIRUBIN,TOTAL 0.2 MG/DL (0.2-1.0); BLOOD UREA NITROGEN 12 MG/DL (7-18); CALCIUM LEVEL 8.8 MG/DL (8.8-10.2); CARBON DIOXIDE LEVEL 31 MEQ/L (21-32); CHLORIDE LEVEL 103 MEQ/L (98-107); CREATININE FOR GFR 0.72 MG/DL (0.55-1.02); GLOMERULAR FILTRATION RATE > 60.0 (>45); GLUCOSE, FASTING 229 MG/DL (80-110); PHOSPHORUS LEVEL 3.8 MG/DL (2.5-4.9); POTASSIUM SERUM 4.3 MEQ/L (3.5-5.1); SODIUM LEVEL 141 MEQ/L (136-145); TOTAL PROTEIN 6.5 GM/DL (6.4-8.2)
== END 2017-02-05 13:30 | disposition home or self-care (01) ==
LOC: M INFU 10:41
PROVIDERS: ATTEND Internal Medicine
DX: C34.90 Malignant neoplasm of unspecified part of unspecified bronchus or lung (principal); C79.31 Secondary malignant neoplasm of brain; Z79.899 Other long term (current) drug therapy; Z79.4 Long term (current) use of insulin; Z88.7 Allergy status to serum and vaccine; Z88.0 Allergy status to penicillin
CPT/HCPCS: 36415; 80053; 83735; 84100; 85025; 96360; 96361; J3475

== ENCOUNTER 2017-02-09 12:01 | Outpatient (CLI) | payer OTHER ==
[~2017-02-09 12:01] MED LIST changes: +MAGNESIUM SULFATE IV ONE; -MAGNESIUM SULFATE IV SCH; +NS IV ONE; -NS IV SCH; +POTASSIUM CHLORIDE IV ONE; -POTASSIUM CHLORIDE IV SCH
== END 2017-02-09 14:30 | disposition home or self-care (01) ==
LOC: M INFU 12:01
PROVIDERS: ATTEND Internal Medicine
DX: C34.90 Malignant neoplasm of unspecified part of unspecified bronchus or lung (principal); C79.31 Secondary malignant neoplasm of brain
CPT/HCPCS: 96360; 96361; J3475

== ENCOUNTER 2017-02-12 11:58 | Outpatient (CLI) | payer OTHER ==
[~2017-02-12] VITALS: Ht 154.9 cm; Wt 60.0 kg
[2017-02-12 12:57] LABS: BASO % 0.4 % (0.0-1.0); EOS # 0.1 K/mm3 (0.0-0.50); LARGE UNSTAINED CELL # 0.1 K/mm3 (0.0-0.4); LARGE UNSTAINED CELL % 1.1 % (0.0-4.0); LYMPH # 1.2 K/mm3 (1.5-4.5); LYMPH % 17.8 % (24.0-44.0); MEAN CORPUSCULAR HEMOGLOBIN 31.7 pg (27.0-33.0); MEAN CORPUSCULAR HGB CONC 30.9 g/dl (32.0-36.5); MEAN CORPUSCULAR VOLUME 102.7 fl (80.0-96.0); MONO # 0.4 K/mm3 (0.0-0.8); MONO % 6.1 % (0.0-5.0); NEUTROPHILS # 4.8 K/mm3 (1.8-7.7); NEUTROPHILS % 73.7 % (36.0-66.0); PLATELET COUNT, AUTOMATED 264 k/mm3 (150-450); RED CELL DISTRIBUTION WIDTH 14.2 % (11.5-14.5); WHITE BLOOD COUNT 6.5 K/mm3 (4.0-10.0)
[2017-02-12 14:06] LABS: ALBUMIN/GLOBULIN RATIO 0.91 (1.00-1.93); ALKALINE PHOSPHATASE 117 U/L (45-117); ALT/SGPT 58 U/L (12-78); ANION GAP 7 MEQ/L (8-16); AST/SGOT 90 U/L (15-37); BILIRUBIN,TOTAL 0.1 MG/DL (0.2-1.0); BLOOD UREA NITROGEN 13 MG/DL (7-18); CALCIUM LEVEL 8.6 MG/DL (8.8-10.2); CARBON DIOXIDE LEVEL 29 MEQ/L (21-32); CHLORIDE LEVEL 104 MEQ/L (98-107); GLOMERULAR FILTRATION RATE > 60.0 (>45); GLUCOSE, FASTING 289 MG/DL (80-110); MAGNESIUM LEVEL 1.9 MG/DL (1.8-2.4); PHOSPHORUS LEVEL 4.6 MG/DL (2.5-4.9); POTASSIUM SERUM 4.6 MEQ/L (3.5-5.1); SODIUM LEVEL 140 MEQ/L (136-145); TOTAL PROTEIN 6.3 GM/DL (6.4-8.2)
== END 2017-02-12 14:50 | disposition home or self-care (01) ==
LOC: M INFU 11:58
PROVIDERS: ATTEND Internal Medicine
DX: C34.90 Malignant neoplasm of unspecified part of unspecified bronchus or lung (principal); C79.31 Secondary malignant neoplasm of brain; Z79.899 Other long term (current) drug therapy; Z88.7 Allergy status to serum and vaccine; Z88.0 Allergy status to penicillin
CPT/HCPCS: 36415; 80053; 83735; 84100; 85025; 96360; 96361; J3475

== ENCOUNTER 2017-02-16 12:18 | Outpatient (CLI) | payer OTHER ==
[~2017-02-16 12:18] MED LIST changes: -COLA100C PO; +COLA100C3 PO; -MAGNESIUM SULFATE IV ONE; -MEGE40TA PO; +MEGE40TA18 PO; -NS IV ONE; -POTASSIUM CHLORIDE IV ONE
[2017-02-16] MEDS ORDERED: NS IV ONE (12:45)
[2017-02-16] MEDS ORDERED: POTASSIUM CHLORIDE IV ONE (12:45)
[2017-02-16] MEDS ORDERED: MAGNESIUM SULFATE IV ONE (12:45)
== END 2017-02-16 15:40 | disposition home or self-care (01) ==
LOC: M INFU 12:18
PROVIDERS: ATTEND Internal Medicine
DX: C34.90 Malignant neoplasm of unspecified part of unspecified bronchus or lung (principal); C79.31 Secondary malignant neoplasm of brain
CPT/HCPCS: 96365; 96366; J3475

== ENCOUNTER 2017-02-19 12:15 | Outpatient (CLI) | payer OTHER ==
[2017-02-19] MEDS ORDERED: MAGNESIUM SULFATE IV ONE (12:30)
[2017-02-19] MEDS ORDERED: POTASSIUM CHLORIDE IV ONE (12:30)
[2017-02-19] MEDS ORDERED: NS IV ONE (12:30)
[2017-02-19 12:49] LABS: BASO % 0.1 % (0.0-1.0); EOS % 0.3 % (0.0-3.0); LARGE UNSTAINED CELL # 0.1 K/mm3 (0.0-0.4); LARGE UNSTAINED CELL % 0.9 % (0.0-4.0); LYMPH # 1.5 K/mm3 (1.5-4.5); LYMPH % 16.5 % (24.0-44.0); MEAN CORPUSCULAR HEMOGLOBIN 31.5 pg (27.0-33.0); MEAN CORPUSCULAR HGB CONC 31.9 g/dl (32.0-36.5); MEAN CORPUSCULAR VOLUME 98.9 fl (80.0-96.0); MONO # 0.1 K/mm3 (0.0-0.8); MONO % 1.2 % (0.0-5.0); NEUTROPHILS # 7.1 K/mm3 (1.8-7.7); NEUTROPHILS % 81.1 % (36.0-66.0); PLATELET COUNT, AUTOMATED 129 k/mm3 (150-450); RED CELL DISTRIBUTION WIDTH 14.4 % (11.5-14.5); WHITE BLOOD COUNT 8.8 K/mm3 (4.0-10.0)
[2017-02-19 13:44] LABS: ALBUMIN 3.2 GM/DL (3.2-5.2); ALKALINE PHOSPHATASE 104 U/L (45-117); ALT/SGPT 35 U/L (12-78); ANION GAP 6 MEQ/L (8-16); AST/SGOT 26 U/L (15-37); BILIRUBIN,TOTAL 0.2 MG/DL (0.2-1.0); BLOOD UREA NITROGEN 17 MG/DL (7-18); CALCIUM LEVEL 9.3 MG/DL (8.8-10.2); CARBON DIOXIDE LEVEL 31 MEQ/L (21-32); CHLORIDE LEVEL 102 MEQ/L (98-107); CREATININE FOR GFR 0.74 MG/DL (0.55-1.02); GLOMERULAR FILTRATION RATE > 60.0 (>45); GLUCOSE, FASTING 202 MG/DL (80-110); PHOSPHORUS LEVEL 4.5 MG/DL (2.5-4.9); POTASSIUM SERUM 4.4 MEQ/L (3.5-5.1); SODIUM LEVEL 139 MEQ/L (136-145); TOTAL PROTEIN 6.6 GM/DL (6.4-8.2)
[2017-02-19 13:45] LABS: ALBUMIN/GLOBULIN RATIO 0.94 (1.00-1.93); MAGNESIUM LEVEL 1.9 MG/DL (1.8-2.4)
== END 2017-02-19 15:15 | disposition home or self-care (01) ==
LOC: M INFU 12:15
PROVIDERS: ATTEND Internal Medicine
DX: C34.90 Malignant neoplasm of unspecified part of unspecified bronchus or lung (principal); C79.31 Secondary malignant neoplasm of brain; Z79.899 Other long term (current) drug therapy; Z79.4 Long term (current) use of insulin; Z88.0 Allergy status to penicillin; Z88.7 Allergy status to serum and vaccine
CPT/HCPCS: 36415; 80053; 83735; 84100; 85025; 96360; 96361; J3475

== ENCOUNTER 2017-02-23 12:01 | Outpatient (CLI) | payer OTHER ==
[2017-02-23] MEDS ORDERED: MAGNESIUM SULFATE IV ONE (13:00)
[2017-02-23] MEDS ORDERED: POTASSIUM CHLORIDE IV ONE (13:00)
[2017-02-23] MEDS ORDERED: NS IV ONE (13:00)
== END 2017-02-23 15:10 | disposition home or self-care (01) ==
LOC: M INFU 12:01
PROVIDERS: ATTEND Internal Medicine
DX: C34.90 Malignant neoplasm of unspecified part of unspecified bronchus or lung (principal); C79.31 Secondary malignant neoplasm of brain
CPT/HCPCS: 96360; 96361; J3475

== ENCOUNTER 2017-02-26 11:57 | Outpatient (CLI) | payer OTHER ==
[~2017-02-26] VITALS: Ht 154.9 cm; Wt 60.0 kg
[2017-02-26] MEDS ORDERED: MAGNESIUM SULFATE IV SCH (12:30)
[2017-02-26] MEDS ORDERED: POTASSIUM CHLORIDE IV SCH (12:30)
[2017-02-26] MEDS ORDERED: NS IV SCH (12:30)
[2017-02-26 12:46] LABS: BASO % 0.2 % (0.0-1.0); EOS # 0.1 K/mm3 (0.0-0.50); EOS % 1.4 % (0.0-3.0); LARGE UNSTAINED CELL # 0.1 K/mm3 (0.0-0.4); LARGE UNSTAINED CELL % 2.8 % (0.0-4.0); LYMPH # 1.5 K/mm3 (1.5-4.5); LYMPH % 31.6 % (24.0-44.0); MEAN CORPUSCULAR HGB CONC 31.8 g/dl (32.0-36.5); MEAN CORPUSCULAR VOLUME 97.5 fl (80.0-96.0); MONO # 0.1 K/mm3 (0.0-0.8); MONO % 3.1 % (0.0-5.0); NEUTROPHILS # 2.6 K/mm3 (1.8-7.7); NEUTROPHILS % 60.9 % (36.0-66.0); RED CELL DISTRIBUTION WIDTH 14.3 % (11.5-14.5); WHITE BLOOD COUNT 4.3 K/mm3 (4.0-10.0)
[2017-02-26 13:09] LABS: PLATELET COUNT, AUTOMATED 11 k/mm3 (150-450)
[2017-02-26 13:37] LABS: ALBUMIN/GLOBULIN RATIO 0.91 (1.00-1.93); ALKALINE PHOSPHATASE 112 U/L (45-117); ALT/SGPT 19 U/L (12-78); ANION GAP 7 MEQ/L (8-16); AST/SGOT 14 U/L (15-37); BILIRUBIN,TOTAL 0.1 MG/DL (0.2-1.0); BLOOD UREA NITROGEN 16 MG/DL (7-18); CARBON DIOXIDE LEVEL 31 MEQ/L (21-32); CHLORIDE LEVEL 102 MEQ/L (98-107); CREATININE FOR GFR 0.66 MG/DL (0.55-1.02); GLOMERULAR FILTRATION RATE > 60.0 (>45); GLUCOSE, FASTING 236 MG/DL (80-110); MAGNESIUM LEVEL 1.8 MG/DL (1.8-2.4); POTASSIUM SERUM 4.5 MEQ/L (3.5-5.1); SODIUM LEVEL 140 MEQ/L (136-145); TOTAL PROTEIN 6.3 GM/DL (6.4-8.2)
[2017-02-26] MEDS ORDERED: diphenhydrAMINE 25 MG CAP PO ONE (16:00)
[2017-02-26] MEDS ORDERED: ACETAMINOPHEN 325 MG TAB PO ONE (16:00)
== END 2017-02-26 23:15 | disposition home or self-care (01) ==
LOC: M INFU 11:57
PROVIDERS: ATTEND Internal Medicine
DX: C34.90 Malignant neoplasm of unspecified part of unspecified bronchus or lung (principal); C79.31 Secondary malignant neoplasm of brain; Z88.0 Allergy status to penicillin; Z88.8 Allergy status to other drugs, medicaments and biological substances; Z99.81 Dependence on supplemental oxygen
CPT/HCPCS: 36415; 36430; 80053; 83735; 84100; 85025; 86850; 86900; 86901; 86920; 96360; J3475; P9016; P9034

== ENCOUNTER 2017-03-05 11:57 | Outpatient (CLI) | payer OTHER ==
[~2017-03-05] VITALS: Ht 154.9 cm; Wt 51.3 kg
[2017-03-05] MEDS ORDERED: NS IV ONE (12:30)
[2017-03-05] MEDS ORDERED: POTASSIUM CHLORIDE IV ONE (12:30)
[2017-03-05] MEDS ORDERED: MAGNESIUM SULFATE IV ONE (12:30)
[2017-03-05 13:08] LABS: BASO % 0.1 % (0.0-1.0); EOS # 0.1 K/mm3 (0.0-0.50); EOS % 1.2 % (0.0-3.0); LARGE UNSTAINED CELL # 0.2 K/mm3 (0.0-0.4); LARGE UNSTAINED CELL % 2.6 % (0.0-4.0); LYMPH # 1.2 K/mm3 (1.5-4.5); LYMPH % 19.3 % (24.0-44.0); MEAN CORPUSCULAR HEMOGLOBIN 29.7 pg (27.0-33.0); MEAN CORPUSCULAR HGB CONC 31.5 g/dl (32.0-36.5); MEAN CORPUSCULAR VOLUME 94.1 fl (80.0-96.0); MONO # 0.2 K/mm3 (0.0-0.8); MONO % 3.5 % (0.0-5.0); NEUTROPHILS # 4.5 K/mm3 (1.8-7.7); NEUTROPHILS % 73.3 % (36.0-66.0); RED CELL DISTRIBUTION WIDTH 14.6 % (11.5-14.5); WHITE BLOOD COUNT 6.2 K/mm3 (4.0-10.0)
[2017-03-05 13:32] LABS: ALBUMIN 3.1 GM/DL (3.2-5.2); ALBUMIN/GLOBULIN RATIO 0.86 (1.00-1.93); ALKALINE PHOSPHATASE 113 U/L (45-117); ALT/SGPT 23 U/L (12-78); ANION GAP 7 MEQ/L (8-16); AST/SGOT 27 U/L (15-37); BILIRUBIN,TOTAL 0.2 MG/DL (0.2-1.0); BLOOD UREA NITROGEN 16 MG/DL (7-18); CALCIUM LEVEL 8.5 MG/DL (8.8-10.2); CARBON DIOXIDE LEVEL 30 MEQ/L (21-32); CHLORIDE LEVEL 101 MEQ/L (98-107); CREATININE FOR GFR 0.81 MG/DL (0.55-1.02); GLOMERULAR FILTRATION RATE > 60.0 (>45); GLUCOSE, FASTING 228 MG/DL (80-110); MAGNESIUM LEVEL 1.8 MG/DL (1.8-2.4); PLATELET COUNT, AUTOMATED 81 k/mm3 (150-450); POTASSIUM SERUM 4.3 MEQ/L (3.5-5.1); SODIUM LEVEL 138 MEQ/L (136-145); TOTAL PROTEIN 6.7 GM/DL (6.4-8.2)
== END 2017-03-05 14:45 | disposition home or self-care (01) ==
LOC: M INFU 11:57
PROVIDERS: ATTEND Internal Medicine
DX: C34.90 Malignant neoplasm of unspecified part of unspecified bronchus or lung (principal); C79.31 Secondary malignant neoplasm of brain; Z79.899 Other long term (current) drug therapy; Z79.82 Long term (current) use of aspirin; Z79.4 Long term (current) use of insulin; Z88.0 Allergy status to penicillin; Z88.7 Allergy status to serum and vaccine
CPT/HCPCS: 80053; 83735; 84100; 85025; 96360; 96361; J3475

== ENCOUNTER 2017-03-10 11:56 | Outpatient (CLI) | payer OTHER ==
[~2017-03-10] VITALS: Ht 154.9 cm; Wt 60.0 kg
[2017-03-10] MEDS ORDERED: NS IV ONE (12:30)
[2017-03-10] MEDS ORDERED: MAGNESIUM SULFATE IV ONE (12:30)
[2017-03-10] MEDS ORDERED: POTASSIUM CHLORIDE IV ONE (12:30)
== END 2017-03-10 14:45 | disposition home or self-care (01) ==
LOC: M INFU 11:56
PROVIDERS: ATTEND Internal Medicine
DX: C34.90 Malignant neoplasm of unspecified part of unspecified bronchus or lung (principal); C79.31 Secondary malignant neoplasm of brain; Z79.899 Other long term (current) drug therapy; Z79.82 Long term (current) use of aspirin; Z79.4 Long term (current) use of insulin; Z88.0 Allergy status to penicillin; Z88.7 Allergy status to serum and vaccine
CPT/HCPCS: 96360; 96361; J3475

== ENCOUNTER 2017-03-12 11:56 | Outpatient (CLI) | payer OTHER ==
[2017-03-12] MEDS ORDERED: POTASSIUM CHLORIDE IV ONE (12:15)
[2017-03-12] MEDS ORDERED: MAGNESIUM SULFATE IV ONE (12:15)
[2017-03-12] MEDS ORDERED: NS IV ONE (12:15)
[2017-03-12 13:04] LABS: BASO % 0.1 % (0.0-1.0); EOS % 0.6 % (0.0-3.0); LARGE UNSTAINED CELL # 0.2 K/mm3 (0.0-0.4); LARGE UNSTAINED CELL % 2.2 % (0.0-4.0); LYMPH # 1.4 K/mm3 (1.5-4.5); LYMPH % 21.2 % (24.0-44.0); MEAN CORPUSCULAR HEMOGLOBIN 31.2 pg (27.0-33.0); MEAN CORPUSCULAR VOLUME 94.5 fl (80.0-96.0); MONO # 0.3 K/mm3 (0.0-0.8); MONO % 4.1 % (0.0-5.0); NEUTROPHILS # 4.9 K/mm3 (1.8-7.7); NEUTROPHILS % 71.9 % (36.0-66.0); RED CELL DISTRIBUTION WIDTH 14.5 % (11.5-14.5); WHITE BLOOD COUNT 6.8 K/mm3 (4.0-10.0)
[2017-03-12 13:12] LABS: PLATELET COUNT, AUTOMATED 79 k/mm3 (150-450)
[2017-03-12 13:32] LABS: ALBUMIN 2.9 GM/DL (3.2-5.2); ALBUMIN/GLOBULIN RATIO 0.91 (1.00-1.93); ALKALINE PHOSPHATASE 103 U/L (45-117); ALT/SGPT 20 U/L (12-78); ANION GAP 9 MEQ/L (8-16); AST/SGOT 14 U/L (15-37); BILIRUBIN,TOTAL 0.1 MG/DL (0.2-1.0); BLOOD UREA NITROGEN 10 MG/DL (7-18); CALCIUM LEVEL 8.2 MG/DL (8.8-10.2); CARBON DIOXIDE LEVEL 28 MEQ/L (21-32); CHLORIDE LEVEL 103 MEQ/L (98-107); CREATININE FOR GFR 0.69 MG/DL (0.55-1.02); GLOMERULAR FILTRATION RATE > 60.0 (>45); GLUCOSE, FASTING 274 MG/DL (80-110); MAGNESIUM LEVEL 1.7 MG/DL (1.8-2.4); PHOSPHORUS LEVEL 3.2 MG/DL (2.5-4.9); POTASSIUM SERUM 4.1 MEQ/L (3.5-5.1); SODIUM LEVEL 140 MEQ/L (136-145); TOTAL PROTEIN 6.1 GM/DL (6.4-8.2)
== END 2017-03-12 14:45 | disposition home or self-care (01) ==
LOC: M INFU 11:56
PROVIDERS: ATTEND Internal Medicine
DX: C34.90 Malignant neoplasm of unspecified part of unspecified bronchus or lung (principal); C79.31 Secondary malignant neoplasm of brain; Z79.899 Other long term (current) drug therapy; Z79.4 Long term (current) use of insulin; Z79.82 Long term (current) use of aspirin; Z88.7 Allergy status to serum and vaccine; Z88.0 Allergy status to penicillin
CPT/HCPCS: 36415; 80053; 83735; 84100; 85025; 96360; 96361; J3475

== ENCOUNTER 2017-03-16 11:55 | Outpatient (CLI) | payer OTHER ==
[~2017-03-16] VITALS: Ht 154.9 cm; Wt 51.3 kg
[2017-03-16] MEDS ORDERED: NS IV ONE (12:15)
[2017-03-16] MEDS ORDERED: POTASSIUM CHLORIDE IV ONE (12:15)
[2017-03-16] MEDS ORDERED: MAGNESIUM SULFATE IV ONE (12:15)
== END 2017-03-16 14:40 | disposition home or self-care (01) ==
LOC: M INFU 11:55
PROVIDERS: ATTEND Internal Medicine
DX: C34.90 Malignant neoplasm of unspecified part of unspecified bronchus or lung (principal); C79.31 Secondary malignant neoplasm of brain; Z79.899 Other long term (current) drug therapy; Z79.82 Long term (current) use of aspirin; Z88.0 Allergy status to penicillin; Z88.7 Allergy status to serum and vaccine
CPT/HCPCS: 96360; 96361; J3475

== ENCOUNTER → 2017-03-17 | Outpatient (CLI) | payer OTHER ==
[~2017-03-17] MED LIST changes: +GASTROGRAFIN SOLUTION 30ML (Q9963) As Ordered ONE; +ISOVUE-370 76% 100ML VIAL (Q9967) As Ordered ONE; -SODIUM CHLORIDE 0.9% INJ 10 ML SYR IV SCH
--- NOTE | 2017-03-18 05:55 | REP ---
Clinical: Metastatic lung cancer post chemotherapy. Technique: Axial contrast enhanced images from the lung bases to the pubic symphysis using oral and 100 ml Isovue 370 intravenous contrast material with precontrast and delayed images of the abdomen as well as coronal and sagittal re-formations. Comparison: 06/29/2017. Findings: Lung bases demonstrate minimal dependent changes/atelectasis in the deep left posterior sulcus. Visualized portions of the heart and pericardium appear normal. Innumerable necrotic and peripherally enhancing low density metastatic foci are noted throughout the liver which appear relatively similar to prior examination and measure roughly up to 4.3 cm maximal diameter . However prior examination also demonstrated quantitatively, more smaller metastatic lesions which are not visualized on current examination and may represent positive response to chemotherapy. The patient is status post pancreatectomy and splenectomy. Left adrenal mass is essentially unchanged and again measuring 3.3 cm maximal transverse diameter. The gallbladder, right adrenal gland, and bilateral kidneys are normal. Adenopathy in the mabel hepatis is unchanged with lymph nodes measuring up to 2.4 cm maximal diameter. The enteric system is without obstruction or acute inflammatory process. Colonic diverticula noted without acute diverticulitis. Pelvis demonstrates distended bladder and stable, age-appropriate uterus/adnexa. No ascites. No free air. Small scattered mesenteric and retroperitoneal lymph nodes up to 9 mm are nonspecific and similar to prior examination. Innumerable subcutaneous metastatic nodules in the anterior abdominal wall are more pronounced than prior examination; specifically, lesion in the anterior left abdominal wall (image 95) measures 2.1 cm maximal diameter previously measuring 1.7 cm maximal diameter. Osseous structures demonstrate age-related degenerative changes. Impression: Metastatic lesions within the liver are again identified and the largest lesions appear relatively similar to prior examination while overall there appears to be decreased quantity to the smaller lesions throughout the liver as compared to prior examination. 2. Adenopathy primarily in the mabel hepatis as well as left adrenal mass unchanged. 3. Metastatic nodules within the anterior abdominal wall appear more pronounced than prior examination. Signed by Yobany Moffett MD 03/18/2017 05:47 A
--- NOTE | 2017-03-18 06:41 | REP ---
Clinical: Lung cancer status post chemotherapy. Technique: Axial contrast enhanced images from the thoracic inlet to the upper abdomen using 100 ml Isovue 370 intravenous contrast material with coronal and sagittal re-formations. Comparison: 01/27/2017. Findings: Ill-defined area of consolidation along the paramediastinal left upper lobe and patchy scattered areas of consolidation/ground-glass opacification throughout the left hemithorax appear to have increased from prior examination. Subtle ill-defined ground-glass opacities in the medial right upper lobe and superior segment right lower lobe are also identified and may be slightly more pronounced than prior examination as well. Mediastinal and hilar soft tissue likely represents ill-defined conglomerate adenopathy. Specifically lymph nodes in the right hilum are identified and unchanged measuring approximately 2 cm maximal diameter. No pleural effusion. No pneumothorax. No evidence for cardiomegaly. Thoracic aorta without aneurysm or dissection. No pericardial effusion. Surrounding musculoskeletal structures demonstrate age-related changes without obvious focal osseous abnormality. Upper abdomen demonstrates hepatic and left adrenal metastatic disease along with prominent lymph nodes in the mabel hepatis similar to prior examination. Impression: Consolidation in the paramediastinal left upper lobe as well as patchy scattered areas of consolidation and ground-glass opacity primarily noted in the left mid to upper lung zones and to a lesser extent the right upper lung zone appear more pronounced than prior examination. Findings are nonspecific and may reflect malignancy as well as multifocal pneumonia. Signed by Yobany Moffett MD 03/18/2017 06:33 A
== END ==
LOC: M RAD 12:01
PROVIDERS: ATTEND Internal Medicine Hematology & Oncology
DX: C34.90 Malignant neoplasm of unspecified part of unspecified bronchus or lung (principal)

== ENCOUNTER → 2017-03-18 | Outpatient (CLI) | payer OTHER ==
[~2017-03-18] MED LIST changes: -GASTROGRAFIN SOLUTION 30ML (Q9963) As Ordered ONE; -ISOVUE-370 76% 100ML VIAL (Q9967) As Ordered ONE
--- NOTE | 2017-03-18 16:55 | REP ---
MR BRAIN WITHOUT AND WITH CONTRAST: HISTORY: Metastasis. CONTRAST: ProHance 10 mL. COMPARISON: 08/11/2016 A 5 mm enhancing nodule is present in the anteroinferior right temporal lobe. A 5 mm enhancing nodule was present in the anterior left temporal lobe. A small amount of edema is present. Areas of increased signal intensity on T2 weighted images are present in the periventricular and subcortical white matter. This represents small vessel ischemic disease and post-chemo or radiation therapy change. There is no intraparenchymal hemorrhage, infarct, or midline shift. The ventricular system is normal in appearance. There is no extracerebral collection. The sinuses are clear. IMPRESSION: There are two small 5 mm enhancing nodules in the right and left temporal lobes. Signed by Bulmaro Oliver MD 03/18/2017 05:01 P
== END ==
LOC: M RAD 14:33
PROVIDERS: ATTEND Internal Medicine Hematology & Oncology
DX: H92.02 Otalgia, left ear (principal); Z85.118 Personal history of other malignant neoplasm of bronchus and lung

== ENCOUNTER 2017-03-19 11:55 | Outpatient (CLI) | payer OTHER ==
[~2017-03-19] VITALS: Ht 154.9 cm; Wt 51.3 kg
[~2017-03-19 11:55] MED LIST changes: +SODIUM CHLORIDE 0.9% INJ 10 ML SYR IV SCH
[2017-03-19 12:50] LABS: BASO % 0.1 % (0.0-1.0); EOS % 0.1 % (0.0-3.0); LARGE UNSTAINED CELL # 0.2 K/mm3 (0.0-0.4); LARGE UNSTAINED CELL % 2.7 % (0.0-4.0); LYMPH # 1.4 K/mm3 (1.5-4.5); LYMPH % 16.1 % (24.0-44.0); MEAN CORPUSCULAR HEMOGLOBIN 30.3 pg (27.0-33.0); MEAN CORPUSCULAR HGB CONC 31.8 g/dl (32.0-36.5); MEAN CORPUSCULAR VOLUME 95.3 fl (80.0-96.0); MONO # 0.3 K/mm3 (0.0-0.8); MONO % 3.5 % (0.0-5.0); NEUTROPHILS # 6.9 K/mm3 (1.8-7.7); NEUTROPHILS % 77.5 % (36.0-66.0); RED CELL DISTRIBUTION WIDTH 14.8 % (11.5-14.5); WHITE BLOOD COUNT 8.9 K/mm3 (4.0-10.0)
[2017-03-19 12:56] LABS: PLATELET COUNT, AUTOMATED 42 k/mm3 (150-450)
[2017-03-19] MEDS ORDERED: POTASSIUM CHLORIDE IV ONE (13:00)
[2017-03-19] MEDS ORDERED: NS IV ONE (13:00)
[2017-03-19] MEDS ORDERED: MAGNESIUM SULFATE IV ONE (13:00)
[2017-03-19 13:43] LABS: ALBUMIN 3.1 GM/DL (3.2-5.2); ALBUMIN/GLOBULIN RATIO 0.94 (1.00-1.93); ALKALINE PHOSPHATASE 123 U/L (45-117); ALT/SGPT 21 U/L (12-78); ANION GAP 10 MEQ/L (8-16); AST/SGOT 11 U/L (15-37); BILIRUBIN,TOTAL 0.2 MG/DL (0.2-1.0); BLOOD UREA NITROGEN 15 MG/DL (7-18); CALCIUM LEVEL 8.4 MG/DL (8.8-10.2); CARBON DIOXIDE LEVEL 28 MEQ/L (21-32); CHLORIDE LEVEL 103 MEQ/L (98-107); CREATININE FOR GFR 0.73 MG/DL (0.55-1.02); GLOMERULAR FILTRATION RATE > 60.0 (>45); GLUCOSE, FASTING 295 MG/DL (80-110); MAGNESIUM LEVEL 1.6 MG/DL (1.8-2.4); PHOSPHORUS LEVEL 3.9 MG/DL (2.5-4.9); SODIUM LEVEL 141 MEQ/L (136-145); TOTAL PROTEIN 6.4 GM/DL (6.4-8.2)
[2017-03-19 14:19] LABS: ADD MORPHOLOGY? YES
[2017-03-19 14:20] LABS: HYPOCHROMASIA 1+
[2017-03-19 14:22] LABS: SCHISTOCYTES 1+
== END 2017-03-19 14:55 | disposition home or self-care (01) ==
LOC: M INFU 11:55
PROVIDERS: ATTEND Internal Medicine
DX: C34.90 Malignant neoplasm of unspecified part of unspecified bronchus or lung (principal); C79.31 Secondary malignant neoplasm of brain; Z79.899 Other long term (current) drug therapy; Z79.4 Long term (current) use of insulin; Z79.82 Long term (current) use of aspirin; Z88.7 Allergy status to serum and vaccine; Z88.0 Allergy status to penicillin
CPT/HCPCS: 36415; 80053; 83735; 84100; 85025; 96360; 96361; J3475

== ENCOUNTER 2017-03-23 11:56 | Outpatient (CLI) | payer OTHER ==
[~2017-03-23] VITALS: Ht 154.9 cm; Wt 51.3 kg
[~2017-03-23 11:56] MED LIST changes: +MAGNESIUM SULFATE IV ONE; +NS IV ONE; +POTASSIUM CHLORIDE IV ONE
== END 2017-03-23 14:30 | disposition home or self-care (01) ==
LOC: M INFU 11:56
PROVIDERS: ATTEND Internal Medicine
DX: C34.90 Malignant neoplasm of unspecified part of unspecified bronchus or lung (principal); C79.31 Secondary malignant neoplasm of brain; Z88.0 Allergy status to penicillin; Z88.7 Allergy status to serum and vaccine; Z79.899 Other long term (current) drug therapy; Z79.4 Long term (current) use of insulin; Z79.82 Long term (current) use of aspirin
CPT/HCPCS: 96360; 96361; J3475

== ENCOUNTER 2017-03-26 12:01 | Outpatient (CLI) | payer OTHER ==
[~2017-03-26] VITALS: Ht 154.9 cm; Wt 51.3 kg
[~2017-03-26 12:01] MED LIST changes: +SODIUM CHLORIDE 0.9% INJ 10 ML SYR IV SCH
[2017-03-26 12:44] LABS: BASO % 0.2 % (0.0-1.0); EOS % 0.4 % (0.0-3.0); LARGE UNSTAINED CELL # 0.3 K/mm3 (0.0-0.4); LARGE UNSTAINED CELL % 3.4 % (0.0-4.0); LYMPH # 1.6 K/mm3 (1.5-4.5); MEAN CORPUSCULAR HEMOGLOBIN 30.8 pg (27.0-33.0); MEAN CORPUSCULAR HGB CONC 32.3 g/dl (32.0-36.5); MEAN CORPUSCULAR VOLUME 95.3 fl (80.0-96.0); MONO # 0.9 K/mm3 (0.0-0.8); MONO % 11.1 % (0.0-5.0); NEUTROPHILS # 5.8 K/mm3 (1.8-7.7); NEUTROPHILS % 68.9 % (36.0-66.0); PLATELET COUNT, AUTOMATED 238 k/mm3 (150-450); RED CELL DISTRIBUTION WIDTH 18.6 % (11.5-14.5); WHITE BLOOD COUNT 8.4 K/mm3 (4.0-10.0)
[2017-03-26] MEDS ORDERED: POTASSIUM CHLORIDE IV ONE (12:45)
[2017-03-26] MEDS ORDERED: NS IV ONE (12:45)
[2017-03-26] MEDS ORDERED: MAGNESIUM SULFATE IV ONE (12:45)
[2017-03-26 13:18] LABS: ALBUMIN/GLOBULIN RATIO 0.91 (1.00-1.93); ALKALINE PHOSPHATASE 114 U/L (45-117); ALT/SGPT 23 U/L (12-78); ANION GAP 8 MEQ/L (8-16); AST/SGOT 29 U/L (15-37); BILIRUBIN,TOTAL 0.1 MG/DL (0.2-1.0); BLOOD UREA NITROGEN 14 MG/DL (7-18); CALCIUM LEVEL 8.3 MG/DL (8.8-10.2); CARBON DIOXIDE LEVEL 28 MEQ/L (21-32); CHLORIDE LEVEL 103 MEQ/L (98-107); CREATININE FOR GFR 0.77 MG/DL (0.55-1.02); GLOMERULAR FILTRATION RATE > 60.0 (>45); GLUCOSE, FASTING 257 MG/DL (80-110); PHOSPHORUS LEVEL 4.6 MG/DL (2.5-4.9); POTASSIUM SERUM 4.7 MEQ/L (3.5-5.1); SODIUM LEVEL 139 MEQ/L (136-145); TOTAL PROTEIN 6.3 GM/DL (6.4-8.2)
== END 2017-03-26 15:00 | disposition home or self-care (01) ==
LOC: M INFU 12:01
PROVIDERS: ATTEND Internal Medicine
DX: E83.42 Hypomagnesemia (principal); C34.90 Malignant neoplasm of unspecified part of unspecified bronchus or lung; C79.31 Secondary malignant neoplasm of brain; D64.9 Anemia, unspecified; Z79.899 Other long term (current) drug therapy; Z79.82 Long term (current) use of aspirin; Z79.4 Long term (current) use of insulin; Z88.7 Allergy status to serum and vaccine; Z88.0 Allergy status to penicillin
CPT/HCPCS: 80053; 83735; 84100; 85025; 96360; 96361; J3475

== ENCOUNTER → 2017-03-26 | Outpatient (CLI) | payer OTHER ==
[~2017-03-26] MED LIST changes: -MAGNESIUM SULFATE IV ONE; -NS IV ONE; -POTASSIUM CHLORIDE IV ONE; -SODIUM CHLORIDE 0.9% INJ 10 ML SYR IV SCH
--- NOTE | 2017-03-27 11:01 | RADONC ---
RADIATION ONCOLOGY FOLLOWUP NOTE DATE: 03/26/2017 CHART NUMBER: [id number]. DIAGNOSIS: Small cell lung carcinoma. STAGE: Extensive, end stage. ECOG PERFORMANCE STATUS: 4. FOLLOWUP NOTE: Ms. 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 Indeed, we completed 3000 cGy delivered in 10 fractions of 300 cGy each to the whole brain on 07/23/2016. The patient did well with her brain treatments and has been under the excellent systemic care of Dr. Roxana Gonsalez. Apparently, recently, she did complain of an episode of some left-sided ear discomfort. An MRI was done on 03/18/2017, which showed two small 5 mm enhancing nodules in the right and left temporal lobes respectively. A CT scan of the chest was also done on 03/17/2017 and did confirm continued hepatic and left adrenal metastases with prominent lymph nodes in the mabel hepatis. This is similar to previous CT scans. The patient is presenting to me today reporting that she is basically asymptomatic from these two brain lesions, but she wishes to explore how to treat them. The patient's review of systems is positive for physical limitations, weakness, anorexia, shortness of breath. She has all the physical limitations secondary to someone end of life. PHYSICAL EXAMINATION: The patient is a chronically ill, cachectic woman presenting in a wheelchair. 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 HEENT: Exam is normocephalic, atraumatic. Extraocular movements are intact. I do not feel any lymphadenopathy. Her lungs are generally free of rhonchi or wheezing. ASSESSMENT: Once again, we have had a lengthy discussion with this patient and her . I made clear them that I did not think that these two tiny lesions were causing her any difficulties or quality of life issues at this time. Therefore, I do not see a need to jump in with intervention at this point. She is quite weak and the role of radiation would be purely palliative. At this time, does not seem to be anything to palliate. I do not think her occasional the light flashes she says she sometimes sees, which have been going on for almost a year, are related to these two small lesions. I went over her various options. One would be to observe this and continue to follow her. We can treat these at anytime should they become symptomatic and we can follow them not just clinically but symptomatically and with routine MRIs. I have discussed this case with Dr. David Catalan, who has a great deal of experience with stereotactic radiosurgery. I am referring her to Dr. Catalan in [place]. Dr. Catalan was gracious enough to offer to see the patient next time she seen by Dr. Gonsalez to save her trip. He can consult with her then and discuss the pluses and minuses of stereotactic radiosurgery for these to tiny lesions. I do suspect that other lesions will develop over time and therefore, I have discussed the possibility in the future of repeat whole brain radiation, which is doable. Both of these treatments are not without cost with regards to overall quality of life at this point. We will of course do whatever the patient and her family wishes to undertake if we think we could be of some benefit to her. Once again, in summary, I have referred the patient to Dr. Catalan for discussion of focused radiosurgery. I have set the patient up to see me again in 1 month for routine followup. My recommendation at this time would be to follow this closely perhaps with MRIs and treat should she become symptomatic. Once again, I had, had the discussion with the patient and her with regards to hospice care. I believe hospice may be of benefit to this very pleasant and unfortunate couple. cc: MD All Blanc MD *Roxana Gonsalez MD *MD DANGELO Shaffer
== END ==
LOC: M ONCR 15:08
PROVIDERS: ATTEND Radiology Radiation Oncology
DX: C34.02 Malignant neoplasm of left main bronchus (principal); C79.31 Secondary malignant neoplasm of brain

== ENCOUNTER 2017-03-30 11:57 | Outpatient (CLI) | payer OTHER ==
[~2017-03-30 11:57] MED LIST changes: +MAGNESIUM SULFATE IV SCH; +NS IV SCH; +POTASSIUM CHLORIDE IV SCH
[2017-03-30] MEDS ORDERED: ONDANSETRON 4 MG TAB (S0181) PO ONE (13:30)
== END 2017-03-30 14:30 | disposition home or self-care (01) ==
LOC: M INFU 11:57
PROVIDERS: ATTEND Internal Medicine
DX: C34.90 Malignant neoplasm of unspecified part of unspecified bronchus or lung (principal); C79.31 Secondary malignant neoplasm of brain; Z79.899 Other long term (current) drug therapy; Z79.82 Long term (current) use of aspirin; Z79.4 Long term (current) use of insulin; Z88.7 Allergy status to serum and vaccine; Z88.0 Allergy status to penicillin
CPT/HCPCS: 96360; 96361; J3475

== ENCOUNTER 2017-04-02 11:57 | Outpatient (CLI) | payer OTHER ==
[~2017-04-02] VITALS: Ht 154.9 cm; Wt 51.3 kg
[~2017-04-02 11:57] MED LIST changes: +MAGNESIUM SULFATE IV ONE; -MAGNESIUM SULFATE IV SCH; +NS IV ONE; -NS IV SCH; +POTASSIUM CHLORIDE IV ONE; -POTASSIUM CHLORIDE IV SCH; +SODIUM CHLORIDE 0.9% INJ 10 ML SYR IV PRN
[2017-04-02 12:33] LABS: BASO % 0.3 % (0.0-1.0); EOS % 0.6 % (0.0-3.0); LARGE UNSTAINED CELL # 0.1 K/mm3 (0.0-0.4); LARGE UNSTAINED CELL % 1.7 % (0.0-4.0); LYMPH # 1.1 K/mm3 (1.5-4.5); LYMPH % 11.7 % (24.0-44.0); MEAN CORPUSCULAR HEMOGLOBIN 30.7 pg (27.0-33.0); MEAN CORPUSCULAR HGB CONC 32.2 g/dl (32.0-36.5); MEAN CORPUSCULAR VOLUME 95.6 fl (80.0-96.0); MONO # 0.9 K/mm3 (0.0-0.8); MONO % 11.1 % (0.0-5.0); NEUTROPHILS % 74.7 % (36.0-66.0); PLATELET COUNT, AUTOMATED 473 k/mm3 (150-450); RED CELL DISTRIBUTION WIDTH 19.7 % (11.5-14.5)
[2017-04-02 13:05] LABS: ALBUMIN/GLOBULIN RATIO 0.83 (1.00-1.93); ALKALINE PHOSPHATASE 97 U/L (45-117); ALT/SGPT 29 U/L (12-78); ANION GAP 8 MEQ/L (8-16); AST/SGOT 47 U/L (15-37); BILIRUBIN,TOTAL 0.3 MG/DL (0.2-1.0); BLOOD UREA NITROGEN 17 MG/DL (7-18); CALCIUM LEVEL 9.1 MG/DL (8.8-10.2); CARBON DIOXIDE LEVEL 31 MEQ/L (21-32); CHLORIDE LEVEL 100 MEQ/L (98-107); CREATININE FOR GFR 0.83 MG/DL (0.55-1.02); GLOMERULAR FILTRATION RATE > 60.0 (>45); GLUCOSE, FASTING 174 MG/DL (80-110); MAGNESIUM LEVEL 1.9 MG/DL (1.8-2.4); PHOSPHORUS LEVEL 5.5 MG/DL (2.5-4.9); POTASSIUM SERUM 4.8 MEQ/L (3.5-5.1); SODIUM LEVEL 139 MEQ/L (136-145); TOTAL PROTEIN 6.6 GM/DL (6.4-8.2)
[2017-04-03] MEDS ORDERED: SODIUM CHLORIDE 0.9% INJ 10 ML SYR IV SCH (09:00)
== END 2017-04-02 14:30 | disposition home or self-care (01) ==
LOC: M INFU 11:57
PROVIDERS: ATTEND Internal Medicine
DX: C34.90 Malignant neoplasm of unspecified part of unspecified bronchus or lung (principal); C79.31 Secondary malignant neoplasm of brain; E83.42 Hypomagnesemia; D64.9 Anemia, unspecified; Z88.0 Allergy status to penicillin; Z88.7 Allergy status to serum and vaccine; Z79.899 Other long term (current) drug therapy; Z79.82 Long term (current) use of aspirin; Z79.4 Long term (current) use of insulin
CPT/HCPCS: 36415; 80053; 83735; 84100; 85025; 96360; 96361; J3475

== ENCOUNTER 2017-04-06 11:59 | Outpatient (CLI) | payer OTHER ==
[~2017-04-06] VITALS: Ht 154.9 cm; Wt 51.2 kg
[~2017-04-06 11:59] MED LIST changes: -MAGNESIUM SULFATE IV ONE; -NS IV ONE; -POTASSIUM CHLORIDE IV ONE; -SODIUM CHLORIDE 0.9% INJ 10 ML SYR IV PRN
[2017-04-06] MEDS ORDERED: POTASSIUM CHLORIDE IV ONE (12:00)
[2017-04-06] MEDS ORDERED: MAGNESIUM SULFATE IV ONE (12:00)
[2017-04-06] MEDS ORDERED: NS IV ONE (12:00)
== END 2017-04-06 14:35 | disposition home or self-care (01) ==
LOC: M INFU 11:59
PROVIDERS: ATTEND Internal Medicine
DX: C34.90 Malignant neoplasm of unspecified part of unspecified bronchus or lung (principal); C79.31 Secondary malignant neoplasm of brain; Z79.899 Other long term (current) drug therapy; Z79.82 Long term (current) use of aspirin; Z79.4 Long term (current) use of insulin; Z88.7 Allergy status to serum and vaccine; Z88.0 Allergy status to penicillin
CPT/HCPCS: 96360; 96361; J3475

== ENCOUNTER 2017-04-09 12:01 | Outpatient (CLI) | payer OTHER ==
[2017-04-09] MEDS ORDERED: NS IV ONE (12:30)
[2017-04-09] MEDS ORDERED: MAGNESIUM SULFATE IV ONE (12:30)
[2017-04-09] MEDS ORDERED: POTASSIUM CHLORIDE IV ONE (12:30)
[2017-04-09 13:06] LABS: BASO % 0.2 % (0.0-1.0); EOS % 0.1 % (0.0-3.0); LARGE UNSTAINED CELL # 0.1 K/mm3 (0.0-0.4); LYMPH % 10.4 % (24.0-44.0); MEAN CORPUSCULAR HEMOGLOBIN 30.7 pg (27.0-33.0); MEAN CORPUSCULAR HGB CONC 31.9 g/dl (32.0-36.5); MEAN CORPUSCULAR VOLUME 96.3 fl (80.0-96.0); MONO # 0.1 K/mm3 (0.0-0.8); MONO % 1.6 % (0.0-5.0); NEUTROPHILS # 7.5 K/mm3 (1.8-7.7); NEUTROPHILS % 86.6 % (36.0-66.0); PLATELET COUNT, AUTOMATED 205 k/mm3 (150-450); RED CELL DISTRIBUTION WIDTH 18.5 % (11.5-14.5); WHITE BLOOD COUNT 8.7 K/mm3 (4.0-10.0)
[2017-04-09 13:26] LABS: ALKALINE PHOSPHATASE 88 U/L (45-117); ALT/SGPT 19 U/L (12-78); ANION GAP 7 MEQ/L (8-16); AST/SGOT 13 U/L (15-37); BLOOD UREA NITROGEN 22 MG/DL (7-18); CALCIUM LEVEL 8.4 MG/DL (8.8-10.2); CARBON DIOXIDE LEVEL 30 MEQ/L (21-32); CHLORIDE LEVEL 103 MEQ/L (98-107); CREATININE FOR GFR 0.82 MG/DL (0.55-1.02); GLOMERULAR FILTRATION RATE > 60.0 (>45); GLUCOSE, FASTING 231 MG/DL (80-110); PHOSPHORUS LEVEL 3.8 MG/DL (2.5-4.9); POTASSIUM SERUM 4.2 MEQ/L (3.5-5.1); SODIUM LEVEL 140 MEQ/L (136-145)
[2017-04-09 13:27] LABS: ALBUMIN 2.9 GM/DL (3.2-5.2); ALBUMIN/GLOBULIN RATIO 0.78 (1.00-1.93); BILIRUBIN,TOTAL 0.2 MG/DL (0.2-1.0); MAGNESIUM LEVEL 1.9 MG/DL (1.8-2.4); TOTAL PROTEIN 6.6 GM/DL (6.4-8.2)
== END 2017-04-09 14:45 | disposition home or self-care (01) ==
LOC: M INFU 12:01
PROVIDERS: ATTEND Internal Medicine
DX: C34.90 Malignant neoplasm of unspecified part of unspecified bronchus or lung (principal); C79.31 Secondary malignant neoplasm of brain; Z79.899 Other long term (current) drug therapy; Z79.82 Long term (current) use of aspirin; Z79.4 Long term (current) use of insulin; Z88.7 Allergy status to serum and vaccine; Z88.0 Allergy status to penicillin
CPT/HCPCS: 36415; 80053; 83735; 84100; 85025; 96360; 96361; J3475

== ENCOUNTER 2017-04-14 11:55 | Outpatient (CLI) | payer OTHER ==
[~2017-04-14] VITALS: Ht 154.9 cm; Wt 60.0 kg
[2017-04-14] MEDS ORDERED: MAGNESIUM SULFATE IV ONE (12:00)
[2017-04-14] MEDS ORDERED: POTASSIUM CHLORIDE IV ONE (12:00)
[2017-04-14] MEDS ORDERED: NS IV ONE (12:00)
== END 2017-04-14 14:30 | disposition home or self-care (01) ==
LOC: M INFU 11:55
PROVIDERS: ATTEND Internal Medicine
DX: C34.90 Malignant neoplasm of unspecified part of unspecified bronchus or lung (principal); C79.31 Secondary malignant neoplasm of brain; Z79.899 Other long term (current) drug therapy; Z79.4 Long term (current) use of insulin; Z79.82 Long term (current) use of aspirin; Z88.0 Allergy status to penicillin; Z88.7 Allergy status to serum and vaccine
CPT/HCPCS: 96360; 96361; J3475

== ENCOUNTER 2017-04-16 11:55 | Outpatient (CLI) | payer OTHER ==
[2017-04-16] MEDS ORDERED: MAGNESIUM SULFATE IV ONE (12:30)
[2017-04-16] MEDS ORDERED: NS IV ONE (12:30)
[2017-04-16] MEDS ORDERED: POTASSIUM CHLORIDE IV ONE (12:30)
[2017-04-16 13:02] LABS: DIFF SLIDE NUMBER 91; MEAN CORPUSCULAR HEMOGLOBIN 31.8 pg (27.0-33.0); MEAN CORPUSCULAR HGB CONC 32.8 g/dl (32.0-36.5); RED CELL DISTRIBUTION WIDTH 18.9 % (11.5-14.5); WHITE BLOOD COUNT 12.3 K/mm3 (4.0-10.0)
[2017-04-16 13:31] LABS: ALBUMIN/GLOBULIN RATIO 0.88 (1.00-1.93); ALKALINE PHOSPHATASE 128 U/L (45-117); ALT/SGPT 24 U/L (12-78); ANION GAP 8 MEQ/L (8-16); AST/SGOT 18 U/L (15-37); BILIRUBIN,TOTAL 0.2 MG/DL (0.2-1.0); BLOOD UREA NITROGEN 8 MG/DL (7-18); CALCIUM LEVEL 8.9 MG/DL (8.8-10.2); CARBON DIOXIDE LEVEL 30 MEQ/L (21-32); CHLORIDE LEVEL 103 MEQ/L (98-107); CREATININE FOR GFR 0.87 MG/DL (0.55-1.02); GLOMERULAR FILTRATION RATE > 60.0 (>45); GLUCOSE, FASTING 225 MG/DL (80-110); PHOSPHORUS LEVEL 4.7 MG/DL (2.5-4.9); POTASSIUM SERUM 4.6 MEQ/L (3.5-5.1); SODIUM LEVEL 141 MEQ/L (136-145); TOTAL PROTEIN 6.4 GM/DL (6.4-8.2)
[2017-04-16 14:45] LABS: PLATELET COUNT, AUTOMATED 37 k/mm3 (150-450)
[2017-04-16 14:47] LABS: EOSINOPHILS 2 % (0-5)
[2017-04-16 14:48] LABS: ANISOCYTOSIS 2+; SCHISTOCYTES 1+
[2017-04-16 14:49] LABS: TOXIC VACUOLATION 1+
== END 2017-04-16 14:45 | disposition home or self-care (01) ==
LOC: M INFU 11:55
PROVIDERS: ATTEND Internal Medicine
DX: C34.90 Malignant neoplasm of unspecified part of unspecified bronchus or lung (principal); C79.31 Secondary malignant neoplasm of brain; Z79.899 Other long term (current) drug therapy; Z79.4 Long term (current) use of insulin; Z79.82 Long term (current) use of aspirin; Z88.0 Allergy status to penicillin; Z88.7 Allergy status to serum and vaccine
CPT/HCPCS: 36415; 80053; 83735; 84100; 85025; 96360; 96361; J3475

== ENCOUNTER 2017-04-20 11:59 | Outpatient (CLI) | payer OTHER ==
[~2017-04-20 11:59] MED LIST changes: +MAGNESIUM SULFATE IV ONE; +NS IV ONE; +POTASSIUM CHLORIDE IV ONE
== END 2017-04-20 14:45 | disposition home or self-care (01) ==
LOC: M INFU 11:59
PROVIDERS: ATTEND Internal Medicine
DX: C34.90 Malignant neoplasm of unspecified part of unspecified bronchus or lung (principal); C79.31 Secondary malignant neoplasm of brain; Z79.899 Other long term (current) drug therapy; Z79.82 Long term (current) use of aspirin; Z79.4 Long term (current) use of insulin; Z88.0 Allergy status to penicillin; Z88.7 Allergy status to serum and vaccine
CPT/HCPCS: 96360; 96361; J3475

== ENCOUNTER 2017-04-23 11:43 | Outpatient (CLI) | payer OTHER ==
[~2017-04-23] VITALS: Ht 154.9 cm; Wt 60.0 kg
[~2017-04-23 11:43] MED LIST changes: -MAGNESIUM SULFATE IV ONE; -NS IV ONE; -POTASSIUM CHLORIDE IV ONE
[2017-04-23] MEDS ORDERED: POTASSIUM CHLORIDE IV ONE (12:00)
[2017-04-23] MEDS ORDERED: MAGNESIUM SULFATE IV ONE (12:00)
[2017-04-23] MEDS ORDERED: NS IV ONE (12:00)
[2017-04-23 12:22] LABS: BASO % 0.2 % (0.0-1.0); EOS # 0.1 K/mm3 (0.0-0.50); EOS % 0.6 % (0.0-3.0); LARGE UNSTAINED CELL # 0.3 K/mm3 (0.0-0.4); LARGE UNSTAINED CELL % 2.5 % (0.0-4.0); LYMPH # 1.7 K/mm3 (1.5-4.5); MEAN CORPUSCULAR HEMOGLOBIN 31.9 pg (27.0-33.0); MEAN CORPUSCULAR HGB CONC 32.8 g/dl (32.0-36.5); MEAN CORPUSCULAR VOLUME 97.4 fl (80.0-96.0); MONO % 7.7 % (0.0-5.0); NEUTROPHILS # 9.7 K/mm3 (1.8-7.7); NEUTROPHILS % 78.1 % (36.0-66.0); PLATELET COUNT, AUTOMATED 235 k/mm3 (150-450); RED CELL DISTRIBUTION WIDTH 22.9 % (11.5-14.5); WHITE BLOOD COUNT 12.4 K/mm3 (4.0-10.0)
[2017-04-23 13:06] LABS: ADD MORPHOLOGY? YES
[2017-04-23 13:13] LABS: ANISOCYTOSIS 2+; HYPOCHROMASIA 2+; MICROCYTOSIS 1+; POIKILOCYTOSIS 2+
[2017-04-23 13:14] LABS: ACANTHOCYTES 1+; HOWELL-JOLLY BODIES 1+; OVALOCYTES 1+
[2017-04-23 13:51] LABS: ANION GAP 3 MEQ/L (8-16); BLOOD UREA NITROGEN 17 MG/DL (7-18); CALCIUM LEVEL 8.6 MG/DL (8.8-10.2); CARBON DIOXIDE LEVEL 31 MEQ/L (21-32); CHLORIDE LEVEL 103 MEQ/L (98-107); CREATININE FOR GFR 0.82 MG/DL (0.55-1.02); GLOMERULAR FILTRATION RATE > 60.0 (>45); GLUCOSE, FASTING 175 MG/DL (80-110); POTASSIUM SERUM 4.5 MEQ/L (3.5-5.1); SODIUM LEVEL 137 MEQ/L (136-145)
[2017-04-23 13:52] LABS: ALBUMIN/GLOBULIN RATIO 0.83 (1.00-1.93); ALKALINE PHOSPHATASE 130 U/L (45-117); ALT/SGPT 32 U/L (12-78); AST/SGOT 34 U/L (15-37); BILIRUBIN,TOTAL 0.2 MG/DL (0.2-1.0); PHOSPHORUS LEVEL 4.5 MG/DL (2.5-4.9); TOTAL PROTEIN 6.6 GM/DL (6.4-8.2)
[2017-04-23 15:28] LABS: MAGNESIUM LEVEL 2.2 MG/DL (1.8-2.4)
== END 2017-04-23 14:45 | disposition home or self-care (01) ==
LOC: M INFU 11:43
PROVIDERS: ATTEND Internal Medicine
DX: C34.90 Malignant neoplasm of unspecified part of unspecified bronchus or lung (principal); C79.31 Secondary malignant neoplasm of brain; Z88.7 Allergy status to serum and vaccine; Z88.0 Allergy status to penicillin; Z79.899 Other long term (current) drug therapy; Z79.82 Long term (current) use of aspirin; Z79.4 Long term (current) use of insulin
CPT/HCPCS: 36415; 80053; 83735; 84100; 85025; 96360; 96361; J3475

== ENCOUNTER 2017-04-27 09:47 | Outpatient (CLI) | payer OTHER ==
[~2017-04-27 09:47] MED LIST changes: +ACETAMINOPHEN TAB 650MG DOSE (2X325MG) PO SCH; +diphenhydrAMINE 25 MG CAP PO SCH
[2017-04-27] MEDS ORDERED: ACETAMINOPHEN 325 MG TAB PO SCH (10:08)
== END 2017-04-27 16:00 | disposition home or self-care (01) ==
LOC: M INFU 09:47
PROVIDERS: ATTEND Internal Medicine
DX: C34.90 Malignant neoplasm of unspecified part of unspecified bronchus or lung (principal); Z88.0 Allergy status to penicillin; Z88.8 Allergy status to other drugs, medicaments and biological substances; Z88.7 Allergy status to serum and vaccine; Z79.899 Other long term (current) drug therapy; Z79.82 Long term (current) use of aspirin; Z79.4 Long term (current) use of insulin
CPT/HCPCS: 36415; 36430; 86850; 86900; 86901; 86920; P9016

== ENCOUNTER 2017-04-29 11:49 | Outpatient (CLI) | payer OTHER ==
[~2017-04-29 11:49] MED LIST changes: -ACETAMINOPHEN TAB 650MG DOSE (2X325MG) PO SCH; -diphenhydrAMINE 25 MG CAP PO SCH
[2017-04-29] MEDS ORDERED: MAGNESIUM SULFATE IV ONE (12:30)
[2017-04-29] MEDS ORDERED: NS IV ONE (12:30)
[2017-04-29] MEDS ORDERED: POTASSIUM CHLORIDE IV ONE (12:30)
== END 2017-04-29 14:50 | disposition home or self-care (01) ==
LOC: M INFU 11:49
PROVIDERS: ATTEND Internal Medicine
DX: C34.90 Malignant neoplasm of unspecified part of unspecified bronchus or lung (principal); C79.31 Secondary malignant neoplasm of brain; Z88.0 Allergy status to penicillin; Z88.7 Allergy status to serum and vaccine; Z79.899 Other long term (current) drug therapy; Z79.4 Long term (current) use of insulin
CPT/HCPCS: 96360; 96361; J3475

== ENCOUNTER 2017-05-01 11:55 | Outpatient (CLI) | payer OTHER ==
[2017-05-01] MEDS ORDERED: NS IV ONE (12:00)
[2017-05-01] MEDS ORDERED: POTASSIUM CHLORIDE IV ONE (12:00)
[2017-05-01] MEDS ORDERED: MAGNESIUM SULFATE IV ONE (12:00)
[2017-05-01 12:54] LABS: BASO % 0.5 % (0.0-1.0); EOS # 0.1 K/mm3 (0.0-0.50); EOS % 0.9 % (0.0-3.0); LARGE UNSTAINED CELL # 0.1 K/mm3 (0.0-0.4); LARGE UNSTAINED CELL % 1.3 % (0.0-4.0); LYMPH % 11.7 % (24.0-44.0); MEAN CORPUSCULAR HEMOGLOBIN 31.9 pg (27.0-33.0); MEAN CORPUSCULAR HGB CONC 32.9 g/dl (32.0-36.5); MEAN CORPUSCULAR VOLUME 97.1 fl (80.0-96.0); MONO # 0.7 K/mm3 (0.0-0.8); MONO % 8.4 % (0.0-5.0); NEUTROPHILS % 77.3 % (36.0-66.0); PLATELET COUNT, AUTOMATED 425 k/mm3 (150-450); RED CELL DISTRIBUTION WIDTH 18.7 % (11.5-14.5); WHITE BLOOD COUNT 7.8 K/mm3 (4.0-10.0)
[2017-05-01 12:56] LABS: ALBUMIN 3.1 GM/DL (3.2-5.2); ALBUMIN/GLOBULIN RATIO 0.86 (1.00-1.93); ALKALINE PHOSPHATASE 150 U/L (45-117); ALT/SGPT 58 U/L (12-78); ANION GAP 6 MEQ/L (8-16); AST/SGOT 56 U/L (15-37); BILIRUBIN,TOTAL 0.3 MG/DL (0.2-1.0); BLOOD UREA NITROGEN 16 MG/DL (7-18); CALCIUM LEVEL 8.8 MG/DL (8.8-10.2); CARBON DIOXIDE LEVEL 29 MEQ/L (21-32); CHLORIDE LEVEL 100 MEQ/L (98-107); CREATININE FOR GFR 0.67 MG/DL (0.55-1.02); GLOMERULAR FILTRATION RATE > 60.0 (>45); GLUCOSE, FASTING 234 MG/DL (80-110); PHOSPHORUS LEVEL 3.3 MG/DL (2.5-4.9); POTASSIUM SERUM 4.6 MEQ/L (3.5-5.1); SODIUM LEVEL 135 MEQ/L (136-145); TOTAL PROTEIN 6.7 GM/DL (6.4-8.2)
== END 2017-05-01 14:45 | disposition home or self-care (01) ==
LOC: M INFU 11:55
PROVIDERS: ATTEND Internal Medicine
DX: C34.90 Malignant neoplasm of unspecified part of unspecified bronchus or lung (principal); C79.31 Secondary malignant neoplasm of brain; Z79.899 Other long term (current) drug therapy; Z79.82 Long term (current) use of aspirin; Z79.4 Long term (current) use of insulin; Z88.7 Allergy status to serum and vaccine; Z88.0 Allergy status to penicillin
CPT/HCPCS: 80053; 83735; 84100; 85025; 96360; 96361; J3475

== ENCOUNTER 2017-05-04 11:57 | Outpatient (CLI) | payer OTHER ==
[2017-05-04] MEDS ORDERED: MAGNESIUM SULFATE IV ONE (12:30)
[2017-05-04] MEDS ORDERED: POTASSIUM CHLORIDE IV ONE (12:30)
[2017-05-04] MEDS ORDERED: NS IV ONE (12:30)
== END 2017-05-04 14:30 | disposition home or self-care (01) ==
LOC: M INFU 11:57
PROVIDERS: ATTEND Internal Medicine
DX: C34.90 Malignant neoplasm of unspecified part of unspecified bronchus or lung (principal); C79.31 Secondary malignant neoplasm of brain; Z79.899 Other long term (current) drug therapy; Z79.82 Long term (current) use of aspirin; Z79.4 Long term (current) use of insulin; Z88.0 Allergy status to penicillin; Z88.7 Allergy status to serum and vaccine
CPT/HCPCS: 96360; 96361; J3475

== ENCOUNTER 2017-05-07 11:55 | Outpatient (CLI) | payer OTHER ==
[~2017-05-07] VITALS: Ht 154.9 cm; Wt 51.3 kg
[2017-05-07] MEDS ORDERED: NS IV ONE (12:00)
[2017-05-07] MEDS ORDERED: MAGNESIUM SULFATE IV ONE (12:00)
[2017-05-07] MEDS ORDERED: POTASSIUM CHLORIDE IV ONE (12:00)
[2017-05-07 13:09] LABS: BASO # 0.1 K/mm3 (0.0-0.2); BASO % 0.2 % (0.0-1.0); EOS # 0.1 K/mm3 (0.0-0.50); EOS % 0.2 % (0.0-3.0); LARGE UNSTAINED CELL # 0.1 K/mm3 (0.0-0.4); LARGE UNSTAINED CELL % 0.3 % (0.0-4.0); LYMPH # 1.2 K/mm3 (1.5-4.5); MEAN CORPUSCULAR HGB CONC 32.8 g/dl (32.0-36.5); MEAN CORPUSCULAR VOLUME 97.7 fl (80.0-96.0); MONO # 0.5 K/mm3 (0.0-0.8); MONO % 1.2 % (0.0-5.0); NEUTROPHILS # 34.6 K/mm3 (1.8-7.7); NEUTROPHILS % 95.1 % (36.0-66.0); PLATELET COUNT, AUTOMATED 228 k/mm3 (150-450)
[2017-05-07 13:11] LABS: WHITE BLOOD COUNT 36.4 K/mm3 (4.0-10.0)
[2017-05-07 13:22] LABS: ALBUMIN/GLOBULIN RATIO 0.83 (1.00-1.93); ALKALINE PHOSPHATASE 146 U/L (45-117); ALT/SGPT 25 U/L (12-78); ANION GAP 7 MEQ/L (8-16); AST/SGOT 19 U/L (15-37); BILIRUBIN,TOTAL 0.2 MG/DL (0.2-1.0); BLOOD UREA NITROGEN 15 MG/DL (7-18); CALCIUM LEVEL 9.3 MG/DL (8.8-10.2); CARBON DIOXIDE LEVEL 31 MEQ/L (21-32); CHLORIDE LEVEL 100 MEQ/L (98-107); CREATININE FOR GFR 0.79 MG/DL (0.55-1.02); GLOMERULAR FILTRATION RATE > 60.0 (>45); GLUCOSE, FASTING 241 MG/DL (80-110); MAGNESIUM LEVEL 1.9 MG/DL (1.8-2.4); PHOSPHORUS LEVEL 4.1 MG/DL (2.5-4.9); POTASSIUM SERUM 4.6 MEQ/L (3.5-5.1); SODIUM LEVEL 138 MEQ/L (136-145); TOTAL PROTEIN 6.6 GM/DL (6.4-8.2)
== END 2017-05-07 15:00 | disposition home or self-care (01) ==
LOC: M INFU 11:55
PROVIDERS: ATTEND Internal Medicine
DX: E83.42 Hypomagnesemia (principal); D64.9 Anemia, unspecified; C34.90 Malignant neoplasm of unspecified part of unspecified bronchus or lung; C79.31 Secondary malignant neoplasm of brain; Z88.0 Allergy status to penicillin; Z88.7 Allergy status to serum and vaccine; Z79.899 Other long term (current) drug therapy; Z79.82 Long term (current) use of aspirin; Z79.4 Long term (current) use of insulin
CPT/HCPCS: 36415; 80053; 83735; 84100; 85025; 96360; 96361; J3475

== ENCOUNTER 2017-05-11 11:57 | Outpatient (CLI) | payer OTHER ==
[~2017-05-11] VITALS: Ht 154.9 cm; Wt 51.3 kg
[~2017-05-11 11:57] MED LIST changes: -COLA100C3 PO; +COLA100C5 PO; +METF10004 PO
[2017-05-11] MEDS ORDERED: POTASSIUM CHLORIDE IV ONE (12:00)
[2017-05-11] MEDS ORDERED: MAGNESIUM SULFATE IV ONE (12:00)
[2017-05-11] MEDS ORDERED: NS IV ONE (12:00)
== END 2017-05-11 14:45 | disposition home or self-care (01) ==
LOC: M INFU 11:57
PROVIDERS: ATTEND Internal Medicine
DX: C34.90 Malignant neoplasm of unspecified part of unspecified bronchus or lung (principal); C79.31 Secondary malignant neoplasm of brain; Z79.899 Other long term (current) drug therapy; Z79.4 Long term (current) use of insulin; Z88.0 Allergy status to penicillin; Z88.7 Allergy status to serum and vaccine; Z79.82 Long term (current) use of aspirin
CPT/HCPCS: 96360; 96361; J3475

== ENCOUNTER 2017-05-14 09:36 | Outpatient (CLI) | payer OTHER ==
[2017-05-14] MEDS ORDERED: POTASSIUM CHLORIDE IV ONE (11:30)
[2017-05-14] MEDS ORDERED: NS IV ONE (11:30)
[2017-05-14] MEDS ORDERED: MAGNESIUM SULFATE IV ONE (11:30)
[2017-05-14 12:02] LABS: BASO % 0.1 % (0.0-1.0); EOS # 0.1 K/mm3 (0.0-0.50); EOS % 0.3 % (0.0-3.0); LARGE UNSTAINED CELL # 0.2 K/mm3 (0.0-0.4); LARGE UNSTAINED CELL % 0.9 % (0.0-4.0); LYMPH % 4.3 % (24.0-44.0); MEAN CORPUSCULAR HEMOGLOBIN 31.6 pg (27.0-33.0); MEAN CORPUSCULAR HGB CONC 32.5 g/dl (32.0-36.5); MONO # 0.7 K/mm3 (0.0-0.8); MONO % 2.9 % (0.0-5.0); NEUTROPHILS # 20.5 K/mm3 (1.8-7.7); NEUTROPHILS % 91.4 % (36.0-66.0); RED CELL DISTRIBUTION WIDTH 17.8 % (11.5-14.5); WHITE BLOOD COUNT 22.4 K/mm3 (4.0-10.0)
[2017-05-14 12:28] LABS: PLATELET COUNT, AUTOMATED 69 k/mm3 (150-450)
--- NOTE | 2017-05-14 12:37 | REP ---
MRI THORACIC SPINE WITHOUT AND WITH IV CONTRAST: HISTORY: Multiple myeloma. Pain in the spine and upper abdomen. No comparison MRI study of the thoracic spine. Comparison chest CT study is from 03/17/2017. TECHNIQUE: Sagittal and axial T1 and T2-weighted scans are acquired in the usual fashion with and without fat saturation. Sequences include spin echo, turbo spin-echo, and STIR imaging sequences. Post-gadolinium enhanced images were acquired as well. Gadolinium enhancement dose is 10 mL of intravenous ProHance. FINDINGS: Thoracic vertebral body heights are preserved. Alignment is normal. There is a low T1 heterogeneously low signal intensity T2-weighted lesion in the left side of the T3 vertebral body. This measures 1.5 cm in greatest craniocaudal span. It is compatible with a metastatic lesion. There is a second equivocal area of low T1 signal intensity in the left side of the T5 vertebral body. This measures 0.7 cm in greatest diameter. No other focal bony lesion is seen. No fracture or collapse is seen. There is a right paracentral disc protrusion at T2-3 which indents the ventral margin of the thecal sac. No cord compression is seen. Conus is unremarkable. Incidental note is made of upper abdominal lymphadenopathy in the periaortic and pericaval region. There is a left adrenal mass. This adenopathy appears more prominent, and the left adrenal mass is larger than on the prior CT study from 03/17/2017. The left adrenal mass measures 4.0 cm in greatest transverse dimension today. Previously 3.3 cm. There are also multiple hepatic metastatic lesions visible incidentally on today's study which appear to be progressed in size and number as well. No significant gadolinium enhancement. IMPRESSION: 1. There are suspicious lesions in the T3 and T5 vertebral bodies. 2. There is evidence of fairly rapid progression in the upper abdominal lymphadenopathy, hepatic metastatic disease, and in the size of the left adrenal mass in the interval since the 03/17/2017 CT study. Signed by Anshul Shaikh MD 05/14/2017 03:33 P
[2017-05-14 12:40] LABS: ALBUMIN 3.1 GM/DL (3.2-5.2); ALBUMIN/GLOBULIN RATIO 0.84 (1.00-1.93); ALKALINE PHOSPHATASE 301 U/L (45-117); ALT/SGPT 167 U/L (12-78); ANION GAP 7 MEQ/L (8-16); AST/SGOT 136 U/L (15-37); BILIRUBIN,TOTAL 0.3 MG/DL (0.2-1.0); BLOOD UREA NITROGEN 12 MG/DL (7-18); CARBON DIOXIDE LEVEL 30 MEQ/L (21-32); CHLORIDE LEVEL 102 MEQ/L (98-107); GLOMERULAR FILTRATION RATE > 60.0 (>45); GLUCOSE, FASTING 141 MG/DL (80-110); MAGNESIUM LEVEL 2.2 MG/DL (1.8-2.4); PHOSPHORUS LEVEL 4.3 MG/DL (2.5-4.9); POTASSIUM SERUM 4.7 MEQ/L (3.5-5.1); SODIUM LEVEL 139 MEQ/L (136-145); TOTAL PROTEIN 6.8 GM/DL (6.4-8.2)
--- NOTE | 2017-05-14 13:14 | REP ---
REASON FOR EXAM: History of multiple myeloma. Patient has pain. COMPARISON EXAM: None. GADOLINIUM UTILIZED: 10 mL of ProHance. Vertebral body height and alignment is within normal limits. The marrow signal is within normal limits. There is no abnormal enhancement seen involving the imaged portion of the spinal cord. There is loss of disc hydrational signal L2-3 through L5-S1 with loss of posterior disc space height L3-4 through L5-S1. The L1-2 disc is well hydrated and of normal height. Loss of hydrational signal is also seen at the T12-L1 level. At the L1-2 level, there is no abnormality. There is no disc herniation, foraminal narrowing, or central canal stenosis. At the L2-3 level, there is a minimal broad-based annular bulge seen in conjunction with degenerative facet joint changes bilaterally and thickening of the ligamentum flava. There is minimal compression of the thecal sac by the aforementioned chronic changes. There is no disc extrusion or foraminal stenosis. At the L3-4 level, there is a broad-based annular bulge seen in conjunction with degenerative facet joint changes bilaterally and thickening of the ligamentum flava. The factors in concert are causing mild central canal stenosis. There is no foraminal narrowing or disc extrusion. At the L4-5 level, there is a broad-based annular bulge seen in conjunction with a tiny focal subligamentous disc protrusion. Degenerative facet joint changes are present bilaterally with thickening of the ligamentum flava, and the factors in concert are causing mild central canal stenosis. There is no foraminal narrowing or disc extrusion. At the L5-S1 level, there is a broad-based annular bulge seen in conjunction with a central focal subligamentous disc protrusion which contacts but does not deform the anterior thecal sac. There is no foraminal narrowing or central canal stenosis. Degenerative facet joint changes are present bilaterally with mild thickening of the ligamentum flava. IMPRESSION: Multilevel discogenic changes as described above. Signed by Ant Wilde DO 05/14/2017 01:52 P
--- NOTE | 2017-05-14 13:36 | REP ---
MRI STUDY BRAIN WITHOUT AND WITH IV GADOLINIUM: HISTORY: Multiple myeloma. Pain in the spine and upper abdomen. Comparison brain MRI study is from March 18, 2017. Gadolinium enhancement dose: 10 mL of intravenous ProHance is administered. TECHNIQUE: Axial and sagittal imaging planes are utilized for T1 and T2-weighted scans. Sequences include spin echo, fast spin echo, FLAIR, and diffusion weighted sequences. Post gadolinium enhanced images are included. MRI FINDINGS: There has been significant progression. On today's study there are numerous enhancing nodules scattered above and below the tentorium consistent with progressive intracranial metastases. The two previously noted nodules, one in each temporal, lobe have progressed in size. The right temporal lobe enhancing lesion now measures 17 mm and the left temporal lobe lesion 23 mm. There is significant progressive vasogenic edema involving most of both temporal lobes on today's study associated with these masses. There are is one infratentorial metastasis in the left cerebellar hemisphere. The other metastases are supratentorial. There is no evidence of intracranial hemorrhage. No extra-axial fluid collection or midline shift is seen. IMPRESSION: Progressive intracranial metastatic disease with today's study showing numerous enhancing metastatic nodules bilaterally. Signed by Anshul Shaikh MD 05/14/2017 03:34 P
== END 2017-05-14 14:15 | disposition home or self-care (01) ==
LOC: M INFU 09:36
PROVIDERS: ATTEND Internal Medicine
DX: C90.00 Multiple myeloma not having achieved remission (principal); Z79.899 Other long term (current) drug therapy; Z79.82 Long term (current) use of aspirin; Z79.4 Long term (current) use of insulin; Z88.0 Allergy status to penicillin; Z88.7 Allergy status to serum and vaccine
CPT/HCPCS: 36415; 70553; 72157; 72158; 80053; 83735; 84100; 85025; 96360; 96361; A9576; J3475

== ENCOUNTER 2017-05-17 12:59 | Inpatient (IN) | payer OTHER ==
[~2017-05-17] VITALS: Ht 154.9 cm; Wt 50.9 kg
[~2017-05-17 12:59] MED LIST changes: -SODIUM CHLORIDE 0.9% INJ 10 ML SYR IV SCH
[2017-05-17] MEDS ORDERED: NS 1,000 ML IV SCH (13:27)
[2017-05-17] MEDS ORDERED: ONDANSETRON 4MG/2ML VIAL (J2405) IV ONE (13:30)
[2017-05-17] MEDS ORDERED: MORPHINE 4 MG/ML 1ML SYRINGE IV ONE (13:30)
[2017-05-17] MEDS ORDERED: PROC5TA PO (13:35)
[2017-05-17] MEDS ORDERED: METO-346 PO (13:35)
[2017-05-17] MEDS ORDERED: CYPR4TA PO (13:35)
[2017-05-17] MEDS ORDERED: HYCA1CAP PO (13:35)
[2017-05-17] MEDS ORDERED: ONDA8TAB7 PO (13:35)
[2017-05-17 13:50] LABS: INR 0.98
--- NOTE | 2017-05-17 14:03 | REP ---
Clinical: Chest pain. Technique: AP and lateral. Comparison: 08/19/2016. Findings: Left upper lobe opacity appears improved from prior examination but remains prominent. [id number] with tip in the right atrium is unchanged. Diffuse underlying chronic interstitial changes appreciated. No further acute consolidation, effusion, or pneumothorax. Mediastinum and cardiac silhouette are normal. Skeletal structures demonstrate osteopenia and degenerative change. Impression: Left upper lobe opacity improved compared to prior examination. Underlying chronic changes. No further acute consolidation, effusion, or pneumothorax. Signed by Yobany Moffett MD 05/17/2017 01:55 P
[2017-05-17 14:09] LABS: ALBUMIN 3.1 GM/DL (3.2-5.2); ALBUMIN/GLOBULIN RATIO 0.67 (1.00-1.93); ALKALINE PHOSPHATASE 438 U/L (45-117); ALT/SGPT 304 U/L (12-78); ANION GAP 8 MEQ/L (8-16); AST/SGOT 214 U/L (15-37); BILIRUBIN,DIRECT 1.2 MG/DL (0.0-0.2); BILIRUBIN,TOTAL 1.6 MG/DL (0.2-1.0); BLOOD UREA NITROGEN 12 MG/DL (7-18); CALCIUM LEVEL 9.2 MG/DL (8.8-10.2); CARBON DIOXIDE LEVEL 28 MEQ/L (21-32); CHLORIDE LEVEL 99 MEQ/L (98-107); CREATININE FOR GFR 0.82 MG/DL (0.55-1.02); GLOMERULAR FILTRATION RATE > 60.0 (>45); GLUCOSE, FASTING 181 MG/DL (80-110); POTASSIUM SERUM 4.3 MEQ/L (3.5-5.1); SODIUM LEVEL 135 MEQ/L (136-145); TOTAL PROTEIN 7.7 GM/DL (6.4-8.2)
[2017-05-17 14:20] LABS: BASO % 0.2 % (0.0-1.0); EOS # 0.1 K/mm3 (0.0-0.50); EOS % 0.4 % (0.0-3.0); LARGE UNSTAINED CELL # 0.1 K/mm3 (0.0-0.4); LARGE UNSTAINED CELL % 0.8 % (0.0-4.0); LYMPH # 1.2 K/mm3 (1.5-4.5); LYMPH % 6.9 % (24.0-44.0); MEAN CORPUSCULAR HEMOGLOBIN 31.2 pg (27.0-33.0); MEAN CORPUSCULAR HGB CONC 32.4 g/dl (32.0-36.5); MEAN CORPUSCULAR VOLUME 96.3 fl (80.0-96.0); MONO # 0.5 K/mm3 (0.0-0.8); MONO % 3.5 % (0.0-5.0); NEUTROPHILS # 13.3 K/mm3 (1.8-7.7); NEUTROPHILS % 88.2 % (36.0-66.0); RED CELL DISTRIBUTION WIDTH 18.4 % (11.5-14.5); WHITE BLOOD COUNT 15.1 K/mm3 (4.0-10.0)
[2017-05-17] MEDS ORDERED: ISOVUE-370 76% 100ML VIAL (Q9967) As Ordered ONE (14:20)
[2017-05-17 14:21] LABS: PLATELET COUNT, AUTOMATED 74 k/mm3 (150-450)
--- NOTE | 2017-05-17 15:07 | REP ---
Clinical: Chest pain. Technique: Axial contrast enhanced images from the thoracic inlet to the upper abdomen using 100 ml Isovue 370 intravenous contrast material with multiplanar re-formations. Findings: Satisfactory enhancement of the pulmonary vasculature is achieved and no filling defects are identified to suggest pulmonary embolus. Thoracic aorta and heart/pericardium are relatively normal. Bilateral lung heart demonstrate chronic interstitial changes along with ill-defined areas of infiltrate involving the left upper lobe, left lower lobe and lingula as well as minimal dependent changes/atelectasis at the right base. Soft tissue within the mediastinum and left hilar region suggest adenopathy. In comparison to prior examination dated 03/17/2017, there is decreased left mediastinal soft tissue as well as subtle decrease in left-sided infiltrates. Surrounding musculoskeletal structures demonstrate age-related changes without focal osseous abnormality. Limited evaluation of the upper abdomen demonstrates significantly increased metastatic disease throughout the liver with significant adenopathy in the mabel hepatis. Bilateral adrenal metastatic disease also identified and increased from prior examination (left greater than right). Impression: 1. No evidence for pulmonary embolus. Normal thoracic aorta. 2. Left-sided infiltrates as well as soft tissue along the left side of the mediastinum and left hilum again identified and minimally improved compared to 03/17/2017. 3. Increased metastatic disease involving the liver, bilateral adrenal glands, and abdominal adenopathy. Signed by Yobany Moffett MD 05/17/2017 02:59 P
--- NOTE | 2017-05-17 15:23 | REP ---
Clinical: Left upper quadrant pain. Comparison: 03/17/2017. Findings: Lung bases demonstrate bibasilar dependent and atelectatic changes. Visualized heart and pericardium normal. The liver demonstrates severe diffuse metastatic disease which has considerably increased throughout the liver. Adenopathy in the upper abdomen and mabel hepatis region has increased as well with the previously noted 2.3 cm node now measuring 3 cm. A new right adrenal metastasis measures 2.3 cm diameter, and in the left adrenal metastasis now measures 4.4 cm maximal diameter and previously measured 3.3 cm. Retroperitoneal lymph nodes at the level of the kidneys is also increased from prior examinations with multiple lymph nodes now measuring up to 2.2 cm diameter. No ascites. No free air. The enteric system is without obstruction or acute inflammatory process. Pelvis demonstrates normal bladder and age-appropriate stable uterus/adnexa. Atherosclerotic changes to the vasculature noted without aneurysm or dissection. Skeletal structures demonstrate age-related degenerative changes. Impression: Significantly increased metastatic disease with increased hepatic masses, abdominal and retroperitoneal adenopathy, and bilateral adrenal metastases. Signed by Yobany Moffett MD 05/17/2017 03:15 P
[2017-05-17] MEDS ORDERED: NICOTINE 21MG/24HR 1 EA TRANSDERMAL TD ONE (15:45)
[2017-05-17] MEDS ORDERED: MARI2.5C PO (16:13)
[2017-05-17] MEDS ORDERED: [UNRECOGNIZED DRUG - CODE] SC (16:15)
[2017-05-17] MEDS ORDERED: PROC10TA PO (16:19)
[2017-05-17] MEDS ORDERED: IPRATROPIUM 0.5MG/ALBUTEROL 2.5MG INH SOL UD 3ML (DUONEB)(J7620) NEB PRN (18:00)
[2017-05-17] MEDS ORDERED: DEXTROSE 50% 50 ML SYRINGE IV PRN (18:00)
[2017-05-17] MEDS ORDERED: LEVALBUTEROL 1.25 MG/0.5 ML CONCENTRATE NEB INH PRN (18:00)
[2017-05-17] MEDS ORDERED: BISACODYL 5 MG TAB PO PRN (18:00)
[2017-05-17] MEDS ORDERED: DOCUSATE SODIUM 100 MG CAP PO PRN (18:00)
[2017-05-17] MEDS ORDERED: GLUCAGON FOR INJ 1 MG VIAL (J1610) SC PRN (18:00)
[2017-05-17] MEDS ORDERED: MORPHINE 2 MG/ML 1ML SYRINGE IV PRN (18:00)
--- NOTE | 2017-05-17 18:39 | REP ---
Clinical: Altered mental status. Comparison: MRI dated 05/14/2017. Findings: Bilateral vasogenic edema primarily involving the temporal lobes is appreciated with a 1.5 cm high density lesion in the left temporal lobe and smaller 9 mm high-density focus in the anterior limb of the left internal capsule consistent with metastatic disease. Findings are relatively similar to recent MRI. No new acute intracranial process is identified. Houser-white differentiation is maintained. No hydrocephalous. No extra-axial collection. Calvarium is intact. Sinuses clear. Impression: Bilateral vasogenic edema with left temporal lobe and internal capsule high density lesions compatible with known metastatic disease. Findings are similar to those identified on recent MRI dated 05/14/2017. Signed by Yobany Moffett MD 05/17/2017 06:30 P
[2017-05-17 19:21] VITALS: O2SAT 96
[2017-05-17] MEDS: IPRATROPIUM 0.5MG/ALBUTEROL 2.5MG INH SOL UD 3ML (DUONEB)(J7620) NEB SCH (19:27)
[2017-05-17] MEDS: HumaLOG INSULIN (NovoLOG) PER UNIT SC SCH (20:38)
[2017-05-17] MEDS: AMITRIPTYLINE 25 MG TAB PO SCH (20:48)
[2017-05-17] MEDS: ONDANSETRON 4 MG TAB (S0181) PO SCH (20:48)
[2017-05-17] MEDS: DRONABINOL 2.5 MG CAP (MARINOL) PO SCH (20:48)
[2017-05-17] MEDS: METOPROLOL TART 12.5 MG PER 1/2 TAB PO SCH (20:49)
[2017-05-17] MEDS: ENOXAPARIN 60 MG/0.6 ML SYR (J1650) SC SCH (20:49)
[2017-05-17] MEDS: LEVEMIR (INSULIN DETEMIR) 1 UNITS/0.01ML SC SCH (20:49)
[2017-05-17] MEDS: NS 1,000 ML IV SCH (20:50)
[2017-05-17 22:00] VITALS: BP 132/60
[2017-05-17] MEDS: traMADol 50 MG TAB PO PRN (22:13)
[2017-05-17] MEDS: LevoFLOXacin IV 500 MG in APPROPRIATE DILUENT 1 EA IV SCH (23:30)
[2017-05-18] MEDS: IPRATROPIUM 0.5MG/ALBUTEROL 2.5MG INH SOL UD 3ML (DUONEB)(J7620) NEB SCH ×4 (02:00→19:31)
[2017-05-18] MEDS: NS 1,000 ML IV SCH ×3 (05:24→23:28)
[2017-05-18] MEDS: traMADol 50 MG TAB PO PRN ×3 (05:27→21:26)
[2017-05-18 06:00] VITALS: BP 141/65
--- NOTE | 2017-05-18 06:05 | HPE ---
DATE OF ADMISSION: 05/17/2017 PRIMARY CARE PROVIDER (PCP) Dr. Kayden Olsen. CHIEF COMPLAINT: Left-sided abdominal pain. HISTORY OF PRESENT ILLNESS: The patient is a 66-year-old female with past medical history of stage IV lung cancer with metastasis to the liver and brain. She concluded her last intravenous (IV) chemotherapy on 05/03. She is a poor historian so her at the bedside assisted. He reports that stomach pain started bout five days ago and was intermittent until yesterday, it became more persistent and severe. The pain is dull and is located mostly on the left side from the left lower chest down to the left lower quadrant. was giving her Tylenol for pain control within in the last three days. He reports she has really poor appetite, barely eats much. The patient does not report fever, chills, nausea, vomiting, diarrhea, headache, shortness of breath. The patient's oncologist had ordered a CT scan of the head to evaluate her for metastasis because of episodes of confusion. This was already scheduled to be done tomorrow, Thursday at 7:30 p.m., but being that the patient is in the hospital admitted, we will get that accomplished today. REVIEW OF SYSTEMS: 10-point systems are assessed. They are all negative except as stated above in history of present illness (HPI). PAST MEDICAL HISTORY: 1. Diabetes. 2. Hyperlipidemia. 3. Anxiety/depression. 4. Pancreatic tumor. PAST SURGICAL HISTORY: 1. section. 2. Pancreas excision half of it, left splenectomy. FAMILY HISTORY: Mother has breast cancer. A live sister also breast cancer. She had throat and vagina cancers as well. Nonsmoker. Dad at age 82. SOCIAL HISTORY: The patient smokes currently about three cigarettes a day. Denies alcohol abuse or illicit drug use. She lives with her . ALLERGIES TO MEDICATION: 1. PENICILLIN. 2. FLU VIRUS VACCINE. 3. PNEUMOCOCCAL VACCINE. MEDICATIONS: - albuterol - enoxaparin 60 mg subcutaneous daily - insulin sliding scale - MiraLAX - Neupogen - topotecan hydrochloride 3 grams as directed - amitriptyline 25 mg at bedtime - aspirin 81 mg once a day - cyproheptadine 4 mg by mouth daily - docusate sodium 100 mg daily as needed for constipation - Marinol 2.5 mg by mouth twice a day - Lexapro 5 mg by mouth daily - Levemir 44 units subcutaneous twice a day - metoprolol 12.5 mg by mouth twice a day - Zofran 8 mg by mouth twice a day - K-Laurel liquid 10 mEq by mouth daily - prochlorperazine 10 mg by mouth daily - Spiriva HandiHaler 18 mcg once a day - tramadol 50 mg by mouth every four hours as needed for pain PHYSICAL EXAMINATION: VITAL SIGNS: Blood pressure 132/60, pulse 100, respiratory rate 18, oxygen saturation 98% on room air. Temperature 97.2 degrees Fahrenheit. GENERAL: She is awake, alert to person and place, even time. HEENT: Pupils equal, round, and reactive to light. Extraocular muscles intact. Anicteric sclerae. Mucous membranes dry. CARDIOVASCULAR/CHEST: The chest wall is nontender to palpation. S1, S2 present. Rate is regular. No audible murmur. RESPIRATORY: Decrease air entry bilaterally in both lungs. GASTROINTESTINAL (GI): Abdomen is soft. There is left lower quadrant tenderness, epigastric and flank tenderness. Abdomen is nondistended. Bowel sounds are normal. MUSCULOSKELETAL: No edema, cyanosis or calf tenderness. SKIN: Warm, dry and acyanotic. NEUROLOGIC: Nonfocal findings. LABORATORY DATA: Hematology: White blood cell count 15, hemoglobin 11, hematocrit 35, platelets 74. Chemistry: Sodium 135, potassium 4.2, chloride 99, bicarbonate 27, BUN 12, creatinine 0.2. Fasting glucose 181, calcium 9.2, total bilirubin 1.6, direct bilirubin 1.2, AST 214, ALT 304, alkaline phosphatase 438. Creatine kinase 64. Cardiac enzymes are normal. BNP 33.4. Total protein 7.7, albumin 3.1, lipase 87. PT 13.1, INR 0.98. D-dimer elevated at 936. Urinalysis unremarkable. IMAGING: CT scan of the head revealed evidence of metastatic disease. CT scan of abdomen and pelvis: Significant for increased metastatic disease with increased hepatic masses, abdominal and retroperitoneal adenopathy and bilateral adrenal metastasis. CT angiogram negative for pulmonary embolism. There is left-sided infiltrate as well as soft tissue along the left side of the mediastinum and left hilum, identified minimally improved compared to 03/17. Increased metastatic disease involving the liver, adrenal glands. There is abdominal adenopathy. EKG: Normal sinus rhythm at 79 beats per minute with nonspecific T-wave abnormalities. IMPRESSION: 1. Abdominal pain secondary to metastatic disease. 2. Elevated D-dimer which is nonspecific test. Ruled out pulmonary emboli. 3. Increased lung infiltrate is secondary to metastatic disease, doubt pneumonia. 4. Anemia and thrombocytopenia secondary to chemotherapy treatment. 5. Transaminitis. Also likely related to metastatic disease. 6. History of diabetes, is controlled. 7. History of anxiety and depression, appears stable. PLAN: The patient is admitted. We will monitor liver function tests (LFTs). If trending downwards or same, the patient can probably be discharged home. Monitor blood sugar and cover with insulin as needed. Resume the chronic needed home medications. Deep venous thrombosis (DVT) prophylaxis is with Lovenox. Prognosis for this patient is grave. We will have a discussion with in regards to DO NOT RESUSCITATE (DNR), DO NOT INTUBATE (DNI).
[2017-05-18 06:09] LABS: BASO % 0.1 % (0.0-1.0); EOS # 0.1 K/mm3 (0.0-0.50); EOS % 0.9 % (0.0-3.0); LARGE UNSTAINED CELL # 0.1 K/mm3 (0.0-0.4); LARGE UNSTAINED CELL % 0.9 % (0.0-4.0); LYMPH # 0.9 K/mm3 (1.5-4.5); LYMPH % 6.1 % (24.0-44.0); MEAN CORPUSCULAR HEMOGLOBIN 31.4 pg (27.0-33.0); MEAN CORPUSCULAR HGB CONC 31.9 g/dl (32.0-36.5); MEAN CORPUSCULAR VOLUME 98.5 fl (80.0-96.0); MONO # 0.6 K/mm3 (0.0-0.8); MONO % 4.6 % (0.0-5.0); NEUTROPHILS % 87.3 % (36.0-66.0); RED CELL DISTRIBUTION WIDTH 18.7 % (11.5-14.5); WHITE BLOOD COUNT 12.6 K/mm3 (4.0-10.0)
[2017-05-18 06:11] LABS: PLATELET COUNT, AUTOMATED 80 k/mm3 (150-450)
[2017-05-18 06:32] LABS: ALBUMIN 2.6 GM/DL (3.2-5.2); ALBUMIN/GLOBULIN RATIO 0.67 (1.00-1.93); ALKALINE PHOSPHATASE 347 U/L (45-117); ALT/SGPT 220 U/L (12-78); ANION GAP 4 MEQ/L (8-16); AST/SGOT 136 U/L (15-37); BILIRUBIN,TOTAL 1.7 MG/DL (0.2-1.0); BLOOD UREA NITROGEN 7 MG/DL (7-18); CALCIUM LEVEL 8.8 MG/DL (8.8-10.2); CARBON DIOXIDE LEVEL 30 MEQ/L (21-32); CHLORIDE LEVEL 107 MEQ/L (98-107); CREATININE FOR GFR 0.57 MG/DL (0.55-1.02); GLOMERULAR FILTRATION RATE > 60.0 (>45); GLUCOSE, FASTING 124 MG/DL (80-110); POTASSIUM SERUM 3.9 MEQ/L (3.5-5.1); SODIUM LEVEL 141 MEQ/L (136-145); TOTAL PROTEIN 6.5 GM/DL (6.4-8.2)
--- NOTE | 2017-05-18 07:24 | IPNPDOC ---
Text Note Date of Service The patient was seen on 05/18/17. NOTE Subjective: Pt states her abd pain has slightly improved. Does have occasional HAs. No focal deficits. H/o Lung ca with mets since May 2016, on chemo, prior radiation to the brain. Objective: Vitals: (see below) General: No acute distress, laying comfortably in bed. HEENT: Moist mucous membranes. Neck: No JVD or lymphadenopathy Cardiac: RRR, No murmurs Pulm: Coarse crackles at the bases b/l. No wheezing, rhonchi Abd: Diffuse tenderness on palpation. No rebound/guarding/rigidity.ND + BS Ext: No edema or cyanosis Neuro: Strength 5/5 BUE and BLE. CN 2-12 intact. F to N intact Negative Babinki. Labs (see below) Images: CXR 05/17/17 Impression: Left upper lobe opacity improved compared to prior examination. Underlying chronic changes. No further acute consolidation, effusion, or pneumothorax. CTA Chest 05/17/17 Impression: 1. No evidence for pulmonary embolus. Normal thoracic aorta. 2. Left-sided infiltrates as well as soft tissue along the left side of the mediastinum and left hilum again identified and minimally improved compared to 03/17/2017. 3. Increased metastatic disease involving the liver, bilateral adrenal glands, and abdominal adenopathy. CT abd/pelvis 05/17/17 The liver demonstrates severe diffuse metastatic disease which has considerably increased throughout the liver. Adenopathy in the upper abdomen and mabel hepatis region has increased as well with the previously noted 2.3 cm node now measuring 3 cm. A new right adrenal metastasis measures 2.3 cm diameter, and in the left adrenal metastasis now measures 4.4 cm maximal diameter and previously measured 3.3 cm. Retroperitoneal lymph nodes at the level of the kidneys is also increased from prior examinations with multiple lymph nodes now measuring up to 2.2 cm diameter. No ascites. No free air. The enteric system is without obstruction or acute inflammatory process. Pelvis demonstrates normal bladder and age-appropriate stable uterus/adnexa. Atherosclerotic changes to the vasculature noted without aneurysm or dissection. Skeletal structures demonstrate age-related degenerative changes. Impression: Significantly increased metastatic disease with increased hepatic masses, abdominal and retroperitoneal adenopathy, and bilateral adrenal metastases. CT Head 05/17/17 Impression: Bilateral vasogenic edema with left temporal lobe and internal capsule high density lesions compatible with known metastatic disease. Findings are similar to those identified on recent MRI dated 05/14/2017. MRI Brain 05/17/17 IMPRESSION: Progressive intracranial metastatic disease with today's study showing numerous enhancing metastatic nodules bilaterally. Assessment/Plan 1. Abdominal pain secondary to metastatic disease with associated transaminitis. LFTs improving. CT abdomen and pelvis (see above). Continue to trend LFTs. Zofran and Protonix. Had been on chemotherapy on 05/03. Pain control. 2. Cerebral edema secondary to metastatic cancer. Spoke with Dr. Tierney with recommendations for Decadron 10mg x1, followed by 4mg q6h, MRI stealth protocol, ranatidine, and he will see patient on consult. I have placed a call out to Dr. Smith as well, as he performed radiation therapy on Mrs Foley before. 3. Metastatic lung disease - I have placed a call out to 's oncologist Roxana Gonsalez ext [phone] 4. Anemia and thrombocytopenia status post chemotherapy. No acute bleeding at this time. We will continue to monitor. No need for transfusion at this time. 5. Diabetes mellitus- sliding scale insulin, Levemir 6. Anxiety/depression- continue home meds 7. Hyperlipidemia 8. History of pancreatic tumor 9. Left sided pneumonia with leukocytosis - leukocytosis improving. On levaquin. DVT prophy: Enoxaparin We'll address goals of care with family as patient is a very poor prognosis. VS,Fishbone, I+O VS, Fishbone, I+O Laboratory Tests 05/17/17 13:35 Red Blood Count 3.59 L, Mean Corpuscular Volume 96.3 H, Mean Corpuscular Hemoglobin 31.2, Mean Corpuscular Hemoglobin Concent 32.4, Red Cell Distribution Width 18.4 H, Neutrophils (%) (Auto) 88.2 H, Lymphocytes (%) (Auto ) 6.9 L, Monocytes (%) (Auto) 3.5, Eosinophils (%) (Auto) 0.4, Basophils (%) ( Auto) 0.2, Neutrophils # (Auto) 13.3 H, Lymphocytes # (Auto) 1.2 L, Monocytes # (Auto) 0.5, Eosinophils # (Auto) 0.1, Basophils # (Auto) 0.0 05/18/17 05:42 Red Blood Count 3.14 L, Mean Corpuscular Volume 98.5 H, Mean Corpuscular Hemoglobin 31.4, Mean Corpuscular Hemoglobin Concent 31.9 L, Red Cell Distribution Width 18.7 H, Neutrophils (%) (Auto) 87.3 H, Lymphocytes (%) (Auto ) 6.1 L, Monocytes (%) (Auto) 4.6, Eosinophils (%) (Auto) 0.9, Basophils (%) ( Auto) 0.1, Neutrophils # (Auto) 11.0 H, Lymphocytes # (Auto) 0.9 L, Monocytes # (Auto) 0.6, Eosinophils # (Auto) 0.1, Basophils # (Auto) 0.0, Calcium Level 8.8 , Aspartate Amino Transf (AST/SGOT) 136 H, Alanine Aminotransferase (ALT/SGPT) 220 H, Alkaline Phosphatase 347 H, Total Bilirubin 1.7 H, Total Protein 6.5, Albumin 2.6 L Vital Signs Date Time Temp Pulse Resp B/P (MAP) Pulse Ox O2 Delivery O2 Flow Rate FiO2 05/18/17 06:00 98.1 105 17 141/65 (90) 97 Nasal Cannula 3.0 I&O- Last 24 Hours up to 6 AM 05/18/17 06:00 Intake Total 0 ml Output Total 850 ml Balance -850 ml LENORE DENNISON MD May 18, 2017 07:24
[2017-05-18] MEDS: TIOTROPIUM INHALER/CAPSULE (SPIRIVA) INH SCH (07:28)
[2017-05-18] MEDS: DRONABINOL 2.5 MG CAP (MARINOL) PO SCH ×2 (08:43→21:26)
[2017-05-18] MEDS: HumaLOG INSULIN (NovoLOG) PER UNIT SC SCH ×4 (08:44→20:34)
[2017-05-18 09:00] VITALS: BP 119/58
[2017-05-18] MEDS: CYPROHEPTADINE 4 MG TAB PO SCH (10:25)
[2017-05-18] MEDS: METOPROLOL TART 12.5 MG PER 1/2 TAB PO SCH ×2 (10:26→21:26)
[2017-05-18] MEDS: PROCHLORPERAZINE 5 MG TAB (S0183) PO SCH (10:26)
[2017-05-18] MEDS: ASPIRIN 81 MG ENTERIC TAB PO SCH (10:26)
[2017-05-18] MEDS: ONDANSETRON 4 MG TAB (S0181) PO SCH ×2 (10:26→21:26)
[2017-05-18] MEDS: POTASSIUM CHLORIDE 10 MEQ SR TABLET PO SCH (10:27)
[2017-05-18] MEDS: LEVEMIR (INSULIN DETEMIR) 1 UNITS/0.01ML SC SCH ×2 (10:28→21:25)
[2017-05-18] MEDS: ESCITALOPRAM OXALATE 5MG TABLET (LEXAPRO) PO SCH (10:29)
[2017-05-18] MEDS ORDERED: dexameTHASONE 20 MG/5 ML VIAL (J1100) IV ONE (12:00)
[2017-05-18] MEDS: raNITIdine SYRUP 150 MG/10 ML UDC PO SCH ×2 (13:15→21:25)
[2017-05-18 14:04] VITALS: BP 136/63
[2017-05-18] MEDS: ENOXAPARIN 60 MG/0.6 ML SYR (J1650) SC SCH (21:25)
[2017-05-18] MEDS: AMITRIPTYLINE 25 MG TAB PO SCH (21:25)
[2017-05-18 22:00] VITALS: BP 127/62
[2017-05-18] MEDS: LevoFLOXacin IV 500 MG in APPROPRIATE DILUENT 1 EA IV SCH (23:28)
[2017-05-19] MEDS: IPRATROPIUM 0.5MG/ALBUTEROL 2.5MG INH SOL UD 3ML (DUONEB)(J7620) NEB SCH ×4 (01:14→19:38)
[2017-05-19 06:00] VITALS: BP 121/58
[2017-05-19 06:19] LABS: BASO % 0.1 % (0.0-1.0); EOS % 0.1 % (0.0-3.0); LARGE UNSTAINED CELL # 0.1 K/mm3 (0.0-0.4); LARGE UNSTAINED CELL % 0.4 % (0.0-4.0); LYMPH # 0.6 K/mm3 (1.5-4.5); LYMPH % 2.5 % (24.0-44.0); MEAN CORPUSCULAR HEMOGLOBIN 31.7 pg (27.0-33.0); MEAN CORPUSCULAR HGB CONC 32.2 g/dl (32.0-36.5); MEAN CORPUSCULAR VOLUME 98.5 fl (80.0-96.0); MONO # 0.4 K/mm3 (0.0-0.8); MONO % 1.6 % (0.0-5.0); NEUTROPHILS # 23.3 K/mm3 (1.8-7.7); NEUTROPHILS % 95.4 % (36.0-66.0); RED CELL DISTRIBUTION WIDTH 18.4 % (11.5-14.5); WHITE BLOOD COUNT 24.4 K/mm3 (4.0-10.0)
[2017-05-19 06:24] LABS: PLATELET COUNT, AUTOMATED 98 k/mm3 (150-450)
[2017-05-19 06:34] LABS: ALBUMIN 2.6 GM/DL (3.2-5.2); ALBUMIN/GLOBULIN RATIO 0.67 (1.00-1.93); ALKALINE PHOSPHATASE 405 U/L (45-117); ALT/SGPT 198 U/L (12-78); ANION GAP 8 MEQ/L (8-16); AST/SGOT 147 U/L (15-37); BILIRUBIN,TOTAL 2.1 MG/DL (0.2-1.0); BLOOD UREA NITROGEN 7 MG/DL (7-18); CALCIUM LEVEL 9.2 MG/DL (8.8-10.2); CARBON DIOXIDE LEVEL 25 MEQ/L (21-32); CHLORIDE LEVEL 106 MEQ/L (98-107); CREATININE FOR GFR 0.63 MG/DL (0.55-1.02); GLOMERULAR FILTRATION RATE > 60.0 (>45); GLUCOSE, FASTING 224 MG/DL (80-110); POTASSIUM SERUM 4.5 MEQ/L (3.5-5.1); SODIUM LEVEL 139 MEQ/L (136-145); TOTAL PROTEIN 6.5 GM/DL (6.4-8.2)
--- NOTE | 2017-05-19 07:16 | ECGEPIP ---
Stationary ECG Study 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
[2017-05-19] MEDS: LEVEMIR (INSULIN DETEMIR) 1 UNITS/0.01ML SC SCH ×2 (08:17→20:36)
[2017-05-19] MEDS: CYPROHEPTADINE 4 MG TAB PO SCH (08:18)
[2017-05-19] MEDS: ESCITALOPRAM OXALATE 5MG TABLET (LEXAPRO) PO SCH (08:18)
[2017-05-19] MEDS: HumaLOG INSULIN (NovoLOG) PER UNIT SC SCH ×4 (08:18→20:41)
[2017-05-19] MEDS: raNITIdine SYRUP 150 MG/10 ML UDC PO SCH ×2 (08:18→20:34)
[2017-05-19] MEDS: PROCHLORPERAZINE 5 MG TAB (S0183) PO SCH (08:19)
[2017-05-19] MEDS: ASPIRIN 81 MG ENTERIC TAB PO SCH (08:19)
[2017-05-19] MEDS: POTASSIUM CHLORIDE 10 MEQ SR TABLET PO SCH (08:19)
[2017-05-19] MEDS: ONDANSETRON 4 MG TAB (S0181) PO SCH ×2 (08:19→20:34)
[2017-05-19] MEDS: METOPROLOL TART 12.5 MG PER 1/2 TAB PO SCH ×2 (08:19→20:37)
[2017-05-19] MEDS: DRONABINOL 2.5 MG CAP (MARINOL) PO SCH ×2 (08:20→20:36)
[2017-05-19] MEDS: TIOTROPIUM INHALER/CAPSULE (SPIRIVA) INH SCH (08:49)
[2017-05-19] MEDS: NS 1,000 ML IV SCH ×2 (10:14→20:41)
--- NOTE | 2017-05-19 12:08 | REP ---
Clinical: History of malignancy. Evaluate for metastatic disease. Technique: Standard pre and postcontrast sequencing of the brain with 10 miles gadolinium based ProHance contrast material. Comparison: 05/14/2017 Findings: Current examination demonstrates diffuse bilateral enhancing nodules consistent with metastatic disease. With the exception of the right temporal lesion measuring 1.8 cm with surrounding vasogenic edema and the left temporal lesion measuring 2.0 cm with surrounding vasogenic edema, the majority of lesions are supratentorial and are subcentimeter in size and without significant surrounding vasogenic edema. There is no evidence for acute infarction. The ventricles are symmetric and normal. No extra-axial collection is identified. Underlying age-related microvascular ischemic changes and periventricular leukomalacia noted. Impression: 1. No significant change from prior examination with diffuse bilateral metastatic disease. Largest lesions are identified in the bilateral temporal lobes and demonstrates surrounding vasogenic edema without significant change from prior examination. 2. No obvious new acute intracranial process identified. Signed by Yobany Moffett MD 05/19/2017 12:00 P
[2017-05-19 14:00] VITALS: BP 135/64
[2017-05-19] MEDS: LevoFLOXacin 500 MG TABLET PO SCH (14:11)
[2017-05-19] MEDS: traMADol 50 MG TAB PO PRN ×2 (14:16→20:41)
--- NOTE | 2017-05-19 14:59 | IPN ---
DATE: 05/19/2017 SUBJECTIVE: Ms. Foley is a 66-year-old female who was seen and examined at the bedside. Patient expressed that her abdominal pain has decreased today and she feels better today. The patient denies chest pain, orthopnea or paroxysmal nocturnal dyspnea (PND). Patient also expressed that she has ambulated today and she did not feel dizzy and lightheaded. The patient expressed that she would like to go home and we have tried to contact heroncologist today, however is not available today. We will try again tomorrow. Patient denies any overnight issues. OBJECTIVE: VITAL SIGNS: Temperature 97.1, pulse 92, respiratory rate 17, blood pressure 121/58, pulse oximetry 99 on 3 liters nasal cannula. GENERAL APPEARANCE: The patient was lying in bed in no acute distress. Patient was awake, alert and oriented to time, place and person. Patient has cachexia. HEENT: Normocephalic, atraumatic. Pupils are equal, reactive to light. Oral mucosa is moist. NECK: Supple. No lymphadenopathy, no thyromegaly, no jugular venous distention (JVD). HEART: Regular rate and rhythm. Normal S1 and S2. No murmur or gallop. LUNGS: Patient has crackles bilaterally in base of the lungs, however no wheezing or rhonchi was noticed. ABDOMEN: Soft. No tenderness to palpation. Positive bowel sounds in all quadrants. No rebound or guarding to tenderness. EXTREMITIES: No lower extremity edema or cyanosis. NEURO: Cranial nerves II through XII intact. No focal deficiencies. IMAGING TECHNIQUES: MRI of the brain without followed by wave contrast, which indicated no significant changes from the prior examination, with diffuse metastatic disease, large lesions are identified in the bilateral temporal lobe and demonstrating surrounding vasogenic edema without significant changes from prior examinations. No obvious new acute intracranial process identified. LABORATORY DATA: White blood cells 24.4, white blood cell count 3.14, hemoglobin 10.0, hematocrit 31, MCV 98.5, MCH 31.7, MCHC 32.2, RDW 18.4, platelet count 98, neutrophil percentage 95.4, lymphocyte percentage 2.5, monocyte percentage 1.6, eosinophil percent 0.1, basophil percentage 0.1, leukocyte percentage 0.4. Sodium 139, potassium 4.5, chloride 106, carbon dioxide 25, anion gap 8, BUN 7, creatinine 0.63, glomerular filtration rate (GFR) more than 60, fasting glucose 224, calcium 9.2, total bilirubin 2.1, AST 147, ALT 198, alkaline phosphatase 405, total protein 6.5, albumin 2.6. ASSESSMENT/PLAN: 1. Leukocytosis. Patient's white blood cells have increased today compared to yesterday. This is possibly secondary to dexamethasone. Patient is afebrile. Patient was on Lovenox, however we have stopped this medication. We will continue monitoring patient's white blood cells. 2. Abdominal pain. Patient had abdominal pain as well as nausea and vomiting, however, her symptoms were controlled at this time and the patient denied having abdominal pain. Patient also denies having nausea or any episode of vomiting for the past 24 hours. The patient's latest chemotherapy was on 05/03. At this time, the patient's pain is controlled. We will continue the patient on Zantac and Zofran. 3. Cerebral edema. This is secondary to metastatic cancer. MRI, which was done today indicated no changes from the prior examination with diffuse bilateral metastatic disease. Dr. Menendez has spoken with Dr. Tierney who recommended the patient be continued on Decadron 10 mg as well as ranitidine. We will try to contact Dr. Fletcher tomorrow as well as . Also it is important address future plan since the patient has a poor prognosis. 4. Metastatic lung cancer. Patient is following with oncologist, Dr. Gonsalez , extension [phone]. We will try to contact the oncologist tomorrow since today the office is closed. It is important as is future plan for the patient. 5. Possible macrocytic anemia possibly secondary to chemotherapy vs chronic diseases. I will speak with Dr. Gonsalez tomorrow regarding further workup. 6. Thrombocytopenia. This is possibly secondary to chemotherapy. Patient does not have bleeding but will continue monitor the patient's platelets. However, the patient's platelets have increased compared to yesterday. 7. Transaminitis. This is possibly secondary to metastatic cancer. Also, patient is on Lovenox which can contribute to the abnormal transaminase levels, however, the patient's liver function is better today compared to yesterday. I will speak with the oncologist tomorrow. 8. Diabetes mellitus. Patient is on sliding scale and Levemir. 9. Deep vein thrombosis (DVT) prophylaxis. Patient is on Lovenox 60 mg IV. At this time, I do not have in the records indicating the reason for using Lovenox 60 at bedtime, however, it is possibly started by the oncologist. We will request the medical records. I will speak with the oncologist tomorrow since the patient has brain metastases and the patient has a high risk of intracranial bleeding, however at this time, we will continue the patient on Lovenox until it is confirmed by the oncologist. 10. Anxiety/depression. Continue patient on home medication, . 11. Hyperlipidemia. At this time the patient is stable. This is a chronic issue. 12. History of pancreatic cancer. 13. Left sided pneumonia with leukocytosis. Patient was on IV Levaquin, however it has changed to by mouth Levaquin. The patient has increased leukocytosis. This is possibly secondary to Decadron. We will continue to monitor the patient for any abnormal symptoms. My preceptor for this patient encounter was Dr. Malena Conway. The preceptor was physically present in the building during the encounter and was fully available. As needed, all aspects of the patient interview, examination, medical decision making process, and medical care plan development were reviewed and approved by the preceptor. The preceptor is aware and concurs with the plan as stated in the body of this note and will attest to such by his/ her cosignature. DANGELO
[2017-05-19] MEDS: AMITRIPTYLINE 25 MG TAB PO SCH (20:36)
[2017-05-19] MEDS ORDERED: ENOXAPARIN 60 MG/0.6 ML SYR (J1650) SC SCH (21:00)
[2017-05-19 22:00] VITALS: BP 132/61
[2017-05-20] MEDS: IPRATROPIUM 0.5MG/ALBUTEROL 2.5MG INH SOL UD 3ML (DUONEB)(J7620) NEB SCH ×2 (01:09→07:36)
[2017-05-20] MEDS: LevoFLOXacin 500 MG TABLET PO SCH (05:37)
[2017-05-20] MEDS: traMADol 50 MG TAB PO PRN (05:37)
[2017-05-20] MEDS: NS 1,000 ML IV SCH (05:39)
[2017-05-20 06:00] VITALS: BP 130/67
[2017-05-20 06:30] LABS: EOS % 0.1 % (0.0-3.0); LARGE UNSTAINED CELL # 0.2 K/mm3 (0.0-0.4); LARGE UNSTAINED CELL % 0.8 % (0.0-4.0); LYMPH # 0.7 K/mm3 (1.5-4.5); LYMPH % 2.8 % (24.0-44.0); MEAN CORPUSCULAR HEMOGLOBIN 31.4 pg (27.0-33.0); MEAN CORPUSCULAR HGB CONC 31.8 g/dl (32.0-36.5); MEAN CORPUSCULAR VOLUME 98.6 fl (80.0-96.0); MONO # 0.8 K/mm3 (0.0-0.8); MONO % 2.9 % (0.0-5.0); NEUTROPHILS # 24.4 K/mm3 (1.8-7.7); NEUTROPHILS % 93.4 % (36.0-66.0); PLATELET COUNT, AUTOMATED 134 k/mm3 (150-450); RED CELL DISTRIBUTION WIDTH 18.8 % (11.5-14.5); WHITE BLOOD COUNT 26.1 K/mm3 (4.0-10.0)
[2017-05-20 06:49] LABS: ALBUMIN 2.7 GM/DL (3.2-5.2); ALBUMIN/GLOBULIN RATIO 0.68 (1.00-1.93); ALKALINE PHOSPHATASE 384 U/L (45-117); ALT/SGPT 243 U/L (12-78); ANION GAP 7 MEQ/L (8-16); AST/SGOT 210 U/L (15-37); BILIRUBIN,TOTAL 2.3 MG/DL (0.2-1.0); BLOOD UREA NITROGEN 10 MG/DL (7-18); CALCIUM LEVEL 9.1 MG/DL (8.8-10.2); CARBON DIOXIDE LEVEL 28 MEQ/L (21-32); CHLORIDE LEVEL 105 MEQ/L (98-107); CREATININE FOR GFR 0.68 MG/DL (0.55-1.02); GLOMERULAR FILTRATION RATE > 60.0 (>45); GLUCOSE, FASTING 182 MG/DL (80-110); POTASSIUM SERUM 4.6 MEQ/L (3.5-5.1); SODIUM LEVEL 140 MEQ/L (136-145); TOTAL PROTEIN 6.7 GM/DL (6.4-8.2)
[2017-05-20] MEDS: TIOTROPIUM INHALER/CAPSULE (SPIRIVA) INH SCH (07:36)
[2017-05-20] MEDS: raNITIdine SYRUP 150 MG/10 ML UDC PO SCH (08:00)
[2017-05-20] MEDS: HumaLOG INSULIN (NovoLOG) PER UNIT SC SCH (08:00)
[2017-05-20] MEDS: LEVEMIR (INSULIN DETEMIR) 1 UNITS/0.01ML SC SCH (08:00)
[2017-05-20] MEDS: POTASSIUM CHLORIDE 10 MEQ SR TABLET PO SCH (08:01)
[2017-05-20] MEDS: ONDANSETRON 4 MG TAB (S0181) PO SCH (08:01)
[2017-05-20] MEDS: DRONABINOL 2.5 MG CAP (MARINOL) PO SCH (08:01)
[2017-05-20] MEDS: ESCITALOPRAM OXALATE 5MG TABLET (LEXAPRO) PO SCH (08:01)
[2017-05-20] MEDS: ASPIRIN 81 MG ENTERIC TAB PO SCH (08:01)
[2017-05-20] MEDS: PROCHLORPERAZINE 5 MG TAB (S0183) PO SCH (08:01)
[2017-05-20] MEDS: CYPROHEPTADINE 4 MG TAB PO SCH (08:01)
[2017-05-20 08:02] VITALS: BP 130/67
[2017-05-20] MEDS: METOPROLOL TART 12.5 MG PER 1/2 TAB PO SCH (08:02)
[2017-05-20] MEDS ORDERED: DEXA4TA PO (08:54)
--- NOTE | 2017-05-28 20:56 | DSES ---
DATE OF ADMISSION: 05/18/2017 DATE OF DISCHARGE: 05/20/2017 PRIMARY CARE PHYSICIAN: Dr. Monique NEUROSURGEON: Dr. Asher ONCOLOGIST: Dr. Gonsalez, phone number [phone], extension [phone]. CONSULTANTS: None. PROCEDURES: None. DISCHARGE HOME MEDICATIONS: - dexamethasone 4 mg by mouth every 6 hours for 7 days - albuterol two puff inhaler every 4 hours as needed for shortness of breath - amitriptyline 25 mg by mouth nightly - aspirin 81 mg by mouth daily - cyproheptadine HCL 4 mg by mouth daily - docusate sodium 100 mg by mouth daily - enoxaparin sodium 60 mg subcutaneously nightly - Lexapro 5 mg by mouth daily - insulin sliding scale - Levemir 44 units subcutaneously twice a day - levalbuterol 0.6 mg inhaled four times a day as needed for shortness of breath - metoprolol tartrate 12.5 mg by mouth twice a day - ondansetron 8 mg by mouth twice a day - MiraLAX 17 grams by mouth daily - potassium chloride 10 mEq by mouth daily - prochlorperazine 10 mg by mouth four times a day - Spiriva Handihaler one cap inhaled daily - tramadol 50 mg by mouth every 4 hours as needed for pain PRIMARY DIAGNOSIS: Abdominal pain secondary to metastatic diseases with associated transaminitis. SECONDARY DIAGNOSES: 1. Cerebral edema secondary to metastatic cancer. 2. Metastatic lung cancer. 3. Anemia and thrombocytopenia, status post chemotherapy. 4. Diabetes mellitus. 5. Anxiety, depression. 6. Hyperlipidemia. 7. History of pancreatic cancer. 8. Left-sided pneumonia with leukocytosis. HOSPITAL COURSE: Ms. Foley is a 66-year-old female with multiple past medical history, including stage IV lung cancer with metastasis to the liver and brain, presented due to left side abdominal pain. CT of the head revealed evidence of the metastatic disease. CT of the abdomen and pelvis shows significant increased metastatic disease with increased hepatic mass, abdominal and retroperitoneal adenopathy and bilateral adrenal metastasis. CT angiogram negative for pulmonary embolism. There is left-sided infiltration as well as soft tissue along the left side of the mediastinum and the left hilum identified, minimally improved compared to 03/17/2017. Increased metastatic disease involving adrenal gland. Also, there was abdominal adenopathy. EKG was sinus rhythm. We admitted the patient and followed up with the liver function. Liver function was improving. The patient was continued on Zofran and Protonix due to being nauseated. The patient's latest chemotherapy was on 05/03/2017, and the patient' s pain was controlled throughout her hospitalization. We spoke with Dr. Asher due to headache who recommended possibly secondary to cerebral edema secondary to metastatic cancer, who recommended for Decadron 10 mg once, followed by 4 mg every 6 hours. [facility] stealth protocol, ranitidine. No active bleeding was noticed. However, the patient has anemia and thrombocytopenia status post chemotherapy. We continued monitoring the patient's blood, hemoglobin and hematocrit as well as platelets. We continued the patient with home medication. Also, the patient had the left-sided pneumonia with leukocytosis. The patient was on Levaquin. Leukocytosis was improved. We have spoke with Dr. Roxana Gonsalez who is patient's oncologist for further recommendation, who recommended that the patient can be seen at the office. At the time of discharge, the patient was medically optimized. The patient was discharged to be seen at the office with her oncologist. We discharged the patient with dexamethasone 4 mg tablet by mouth every 6 hours for 7 days based on the recommendation and continue with the home medication. And we asked the patient to followup with her primary care as well as oncology. DISCHARGE PLACEMENT: Home. ACTIVITY: As tolerated by the patient. FOLLOWUP: The patient has an appointment with oncologist after being discharged from the hospital. The patient needs to followup with her primary care within 5 days. My preceptor for this patient encounter was Dr. Dexter. The preceptor was physically present in the building during the encounter and was fully available. As needed, all aspects of the patient interview, examination, medical decision making process, and medical care plan development were reviewed and approved by the preceptor. The preceptor is aware and concurs with the plan as stated in the body of this note and will attest to such by his/her cosignature. I, Jo Ann Dexter, have both independently examined this patient as well as reviewed the documentation. I have discussed in detail with the resident the findings and plan of treatment as documented in the residents documentation. I will continue to follow the patient and offer further guidance to the patients care as necessary during this hospital stay. DANGELO
== END 2017-05-20 12:08 | disposition home or self-care (01) | DRG 947 ==
LOC: M ED 14:51 → M ED INP 17:53 → M MSPAV 20:18 → OBSVTOIN 05-18 14:28
PROVIDERS: ADMIT Hospitalist; ATTEND Internal Medicine
DX: G89.3 Neoplasm related pain (acute) (chronic) (principal); G93.6 Cerebral edema; J18.9 Pneumonia, unspecified organism; C34.90 Malignant neoplasm of unspecified part of unspecified bronchus or lung; C79.31 Secondary malignant neoplasm of brain; C78.7 Secondary malignant neoplasm of liver and intrahepatic bile duct; Z66 Do not resuscitate; E11.9 Type 2 diabetes mellitus without complications; F32.9 Major depressive disorder, single episode, unspecified; F41.9 Anxiety disorder, unspecified; E78.5 Hyperlipidemia, unspecified; R79.89 Other specified abnormal findings of blood chemistry; D64.81 Anemia due to antineoplastic chemotherapy; D69.6 Thrombocytopenia, unspecified; D72.829 Elevated white blood cell count, unspecified; Z79.82 Long term (current) use of aspirin; Z79.4 Long term (current) use of insulin; Z92.21 Personal history of antineoplastic chemotherapy; Z85.07 Personal history of malignant neoplasm of pancreas; Z80.3 Family history of malignant neoplasm of breast; Z80.49 Family history of malignant neoplasm of other genital organs; Z80.1 Family history of malignant neoplasm of trachea, bronchus and lung; F17.210 Nicotine dependence, cigarettes, uncomplicated; Z88.0 Allergy status to penicillin; Z88.7 Allergy status to serum and vaccine; Z92.3 Personal history of irradiation; Z79.899 Other long term (current) drug therapy

== ENCOUNTER 2017-05-22 11:46 | Outpatient (CLI) | payer OTHER ==
[~2017-05-22] VITALS: Ht 154.9 cm; Wt 51.3 kg
[~2017-05-22 11:46] MED LIST changes: +CYPR4TA PO; +HYCA1CAP PO; +MAGNESIUM SULFATE IV ONE; +MARI2.5C PO; +METO-346 PO; +NS IV ONE; +ONDA8TAB7 PO; +POTASSIUM CHLORIDE IV ONE; +PROC10TA PO; +PROC5TA PO; +SODIUM CHLORIDE 0.9% INJ 10 ML SYR IV SCH; +[UNRECOGNIZED DRUG - CODE] SC
[2017-05-22 12:12] LABS: BASO % 0.1 % (0.0-1.0); EOS # 0.1 K/mm3 (0.0-0.50); EOS % 0.5 % (0.0-3.0); LARGE UNSTAINED CELL # 0.2 K/mm3 (0.0-0.4); LYMPH % 5.3 % (24.0-44.0); MEAN CORPUSCULAR HEMOGLOBIN 31.5 pg (27.0-33.0); MEAN CORPUSCULAR HGB CONC 32.2 g/dl (32.0-36.5); MEAN CORPUSCULAR VOLUME 97.8 fl (80.0-96.0); MONO % 5.8 % (0.0-5.0); NEUTROPHILS # 14.3 K/mm3 (1.8-7.7); NEUTROPHILS % 87.4 % (36.0-66.0); PLATELET COUNT, AUTOMATED 234 k/mm3 (150-450); RED CELL DISTRIBUTION WIDTH 19.8 % (11.5-14.5); WHITE BLOOD COUNT 16.4 K/mm3 (4.0-10.0)
[2017-05-22 12:36] LABS: ALBUMIN 2.9 GM/DL (3.2-5.2); ALBUMIN/GLOBULIN RATIO 0.81 (1.00-1.93); ALKALINE PHOSPHATASE 454 U/L (45-117); ALT/SGPT 316 U/L (12-78); ANION GAP 7 MEQ/L (8-16); AST/SGOT 193 U/L (15-37); BILIRUBIN,TOTAL 3.9 MG/DL (0.2-1.0); BLOOD UREA NITROGEN 18 MG/DL (7-18); CALCIUM LEVEL 8.8 MG/DL (8.8-10.2); CARBON DIOXIDE LEVEL 32 MEQ/L (21-32); CHLORIDE LEVEL 97 MEQ/L (98-107); GLOMERULAR FILTRATION RATE > 60.0 (>45); GLUCOSE, FASTING 383 MG/DL (80-110); MAGNESIUM LEVEL 2.2 MG/DL (1.8-2.4); PHOSPHORUS LEVEL 2.9 MG/DL (2.5-4.9); POTASSIUM SERUM 4.1 MEQ/L (3.5-5.1); SODIUM LEVEL 136 MEQ/L (136-145); TOTAL PROTEIN 6.5 GM/DL (6.4-8.2)
[2017-05-23] MEDS ORDERED: HYDR-3713 PO (14:29)
[2017-05-23] MEDS ORDERED: DRON5CAP6 PO (16:42)
== END 2017-05-22 14:35 | disposition home or self-care (01) ==
LOC: M INFU 11:46
PROVIDERS: ATTEND Internal Medicine
DX: E83.42 Hypomagnesemia (principal); D64.9 Anemia, unspecified; C34.90 Malignant neoplasm of unspecified part of unspecified bronchus or lung; C79.31 Secondary malignant neoplasm of brain; Z88.7 Allergy status to serum and vaccine; Z88.0 Allergy status to penicillin; Z79.899 Other long term (current) drug therapy; Z79.82 Long term (current) use of aspirin; Z79.4 Long term (current) use of insulin
CPT/HCPCS: 36415; 80053; 83735; 84100; 85025; 96360; 96361; J3475

== ENCOUNTER 2017-05-23 14:11 | Inpatient (IN) | payer OTHER ==
[~2017-05-23] VITALS: Ht 154.9 cm; Wt 49.5 kg
[~2017-05-23 14:11] MED LIST changes: -MAGNESIUM SULFATE IV ONE; -NS IV ONE; -POTASSIUM CHLORIDE IV ONE; -SODIUM CHLORIDE 0.9% INJ 10 ML SYR IV SCH; +TIOTROPIUM INHALER/CAPSULE (SPIRIVA) INH SCH
[2017-05-23] MEDS ORDERED: HYDR-3713 PO (14:29)
[2017-05-23] MEDS ORDERED: MORPHINE 2 MG/ML 1ML SYRINGE IV ONE ×2 (15:45→18:45)
[2017-05-23] MEDS ORDERED: ISOVUE-370 76% 100ML VIAL (Q9967) As Ordered ONE (15:53)
--- NOTE | 2017-05-23 15:54 | REP ---
Clinical: Shortness of breath. Comparison: 05/17/2017. Findings: Fibrotic changes and subtle opacity involving the left mid lung zone appears slightly improved when compared to prior examination. The cardiac silhouette is normal. Vdixus-S-Ajib with tip in the SVC/right atrium unchanged. Remainder of the lung heart are clear. No effusion. No pneumothorax. Skeletal structures intact. Impression: Improved appearance to the left mid lung zone fibrotic changes. No obvious acute process. Signed by Yobany Moffett MD 05/23/2017 03:46 P
[2017-05-23 16:09] LABS: BASO % 0.2 % (0.0-1.0); EOS % 0.2 % (0.0-3.0); LARGE UNSTAINED CELL # 0.1 K/mm3 (0.0-0.4); LARGE UNSTAINED CELL % 0.7 % (0.0-4.0); LYMPH # 1.6 K/mm3 (1.5-4.5); LYMPH % 7.4 % (24.0-44.0); MEAN CORPUSCULAR HEMOGLOBIN 31.6 pg (27.0-33.0); MEAN CORPUSCULAR VOLUME 98.8 fl (80.0-96.0); MONO # 1.1 K/mm3 (0.0-0.8); MONO % 5.3 % (0.0-5.0); NEUTROPHILS # 17.3 K/mm3 (1.8-7.7); NEUTROPHILS % 86.3 % (36.0-66.0); PLATELET COUNT, AUTOMATED 306 k/mm3 (150-450); RED CELL DISTRIBUTION WIDTH 20.2 % (11.5-14.5)
[2017-05-23 16:32] LABS: ALBUMIN 2.9 GM/DL (3.2-5.2); ALBUMIN/GLOBULIN RATIO 0.67 (1.00-1.93); ALKALINE PHOSPHATASE 472 U/L (45-117); ALT/SGPT 316 U/L (12-78); ANION GAP 10 MEQ/L (8-16); AST/SGOT 173 U/L (15-37); BILIRUBIN,DIRECT 4.8 MG/DL (0.0-0.2); BILIRUBIN,TOTAL 5.7 MG/DL (0.2-1.0); BLOOD UREA NITROGEN 24 MG/DL (7-18); CALCIUM LEVEL 9.1 MG/DL (8.8-10.2); CARBON DIOXIDE LEVEL 27 MEQ/L (21-32); CHLORIDE LEVEL 92 MEQ/L (98-107); GLOMERULAR FILTRATION RATE > 60.0 (>45); POTASSIUM SERUM 4.4 MEQ/L (3.5-5.1); SODIUM LEVEL 129 MEQ/L (136-145); TOTAL PROTEIN 7.2 GM/DL (6.4-8.2)
[2017-05-23 16:34] LABS: GLUCOSE, FASTING 501 MG/DL (80-110)
[2017-05-23] MEDS ORDERED: DRON5CAP6 PO (16:42)
[2017-05-23 16:53] LABS: ABG BASE EXCESS 1.6 (-2.0-2.0); ABG HCO3 26.1 MEQ/L (22.0-26.0); ABG PARTIAL PRESSURE CO2 40.4 mmHg (35.0-45.0); ABG PARTIAL PRESSURE O2 131.2 mmHg (75.0-100.0); ABG TOTAL CO2 27.3 MEQ/L (23.0-31.0); ABG pH (ARTERIAL) 7.428 UNITS (7.350-7.450)
--- NOTE | 2017-05-23 17:09 | REP ---
Clinical: Headache with known metastatic disease. Comparison: 05/17/2017. Findings: Examination demonstrates moderate vasogenic edema predominantly involving the bilateral temporal parietal lobes along with stable high-density focus in the left temporal lobe. Houser-white differentiation is maintained. No acute intracranial hemorrhage is appreciated no new lesion identified. No extra-axial fluid collection appreciated calvarium is intact sinuses are clear Impression: 1. No significant change from prior examination with continued bilateral vasogenic edema and high density lesion in the left temporal lobe. 2. No new abnormality appreciated. Signed by Yobany Moffett MD 05/23/2017 05:00 P
--- NOTE | 2017-05-23 17:31 | REP ---
Clinical: Shortness of breath with history of carcinoma. Technique: Axial contrast enhanced images from the thoracic inlet to the upper abdomen using 100 ml Isovue 370 intravenous contrast material with multiplanar re-formations. Comparison: 05/17/2017. Findings: Satisfactory enhancement of the pulmonary vasculature is achieved and no filling defects are identified to suggest pulmonary embolus. Plate-like fibroatelectatic changes in the left mid lung zone may be slightly improved when compared to prior examination. Small noncalcified nodular densities in the left apex measuring up to approximately 9 mm are essentially unchanged compared to prior examination. No acute, new area of consolidation or mass lesion is appreciated. No pleural effusion or pneumothorax. Tracheobronchial tree is patent. The mediastinum demonstrates continued evidence for subtle soft tissue along the left perihilar mediastinum without change. Thoracic aorta is without aneurysm. Mild atherosclerotic changes to the coronary arteries noted without cardiomegaly or pericardial effusion. Surrounding musculoskeletal structures demonstrate age-related changes without focal osseous abnormality. Limited evaluation of the upper abdomen demonstrates continued diffuse relatively stable hepatic and left adrenal metastatic disease. Impression: 1. No evidence for pulmonary embolus. Linear plate-like atelectasis in the left mid lung zone may be minimally improved compared to prior examination. 2. Small noncalcified nodules in the left upper lobe up to approximately 9 mm are unchanged. 3. No obvious, new mediastinal or pleuroparenchymal process. Signed by Yobany Moffett MD 05/23/2017 05:23 P
--- NOTE | 2017-05-23 17:39 | REP ---
Clinical: Malignancy and metastatic disease with abdominal pain. Technique: Axial contrast enhanced images from the thoracic inlet to the pubic symphysis using 100 ml Isovue 370 intravenous contrast material with coronal and sagittal re-formations. Comparison: 05/17/2017. Findings: Hepatic metastatic disease, upper abdominal adenopathy, and bilateral adrenal metastatic lesions along with mesenteric infiltration and moderately prominent lymph nodes as well as retroperitoneal periaortic adenopathy is essentially unchanged. The patient is again noted to be status post splenectomy and partial pancreatectomy. Gallbladder and bilateral kidneys are grossly unremarkable. The enteric system is without obstruction or acute inflammatory process. Pelvis demonstrates normal bladder and age-appropriate uterus/adnexa with suspected small partially calcified fibroids. No ascites. No free air. Atherosclerotic changes of the aorta without aneurysm. Surrounding musculoskeletal structures demonstrate degenerative changes. Impression: Hepatic, and adrenal metastatic disease with pathologic adenopathy essentially unchanged from prior examination. No ascites or significant new mass lesion identified. No new acute abdominal pathology is appreciated. Signed by Yobany Moffett MD 05/23/2017 05:30 P
[2017-05-23] MEDS ORDERED: ALBUTEROL 90 MCG/ACT 8GM HFA INHALER INH PRN (18:00)
[2017-05-23] MEDS ORDERED: PERCOCET 5MG/325MG TAB PO PRN ×2 (18:00→18:15)
[2017-05-23] MEDS ORDERED: LEVALBUTEROL 1.25 MG/0.5 ML CONCENTRATE NEB INH PRN (18:00)
[2017-05-23] MEDS ORDERED: traMADol 50 MG TAB PO PRN (18:00)
[2017-05-23] MEDS ORDERED: DEXTROSE 50% 50 ML SYRINGE IV PRN (18:15)
[2017-05-23] MEDS ORDERED: GLUCAGON FOR INJ 1 MG VIAL (J1610) SC PRN (18:15)
[2017-05-23] MEDS ORDERED: GLUCOSE 4 GM CHEW TABLET PO PRN (18:15)
[2017-05-23] MEDS: PERCOCET 5MG/325MG TAB PO PRN ×2 (18:44→23:06)
--- NOTE | 2017-05-23 19:47 | HPEPDOC ---
General Date of Admission May 23, 2017 at 18:13 Primary Care Physician: Jr Monique Collins Attending Physician: SHANAE NUÑEZ MD Chief Complaint The patient is a 66-year-old female admitted with a reason for visit of Abdominal Pain,Primary Small Cell Malignant Neopla. Source: Patient, Family History of Present Illness Mrs. 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 She returns again to the hospital with worsening abdominal pain. She was being treated with Percocet at home, this was insufficient. Apparently, after a recent discharge from the hospital and they went discussed her case with her oncologist Dr. Gonsalez [ [phone]] who informed them that he will not her most recent chemotherapy had begun to fail, they did have one additional chemotherapeutic option with a 10% chance of success, that if she would allow them to try for 2 weeks, and if they show no improvement, then they would be done. The patient's is adamant that he does not wish to give up hope, and that he would like to try everything possible to extend her life. That being said, he does not wish for her to be in pain, and they do have a MOLST form that indicates that she is DNR/DNI, and he affirms this is still there wishes. We had a long conversation about palliative care, the patient was somewhat out of it as she had just received morphine and could not weigh-in on the conversation, but the was not quite ready to pursue this option at this time, however it appears as though the reality of the severity and extent of her disease may be beginning to cole upon his mind, and given a little time, he may be more amenable to this conversation once again Home Medications Scheduled Acetaminophen/Hydrocodone (Hydrocodone/Acetaminophen 5-325 mg) 1 Tab Tab, 1 TAB PO Q6H, (Reported) MDD 4 Amitriptyline HCl (Amitriptyline HCl) 25 Mg Tab, 25 MG PO QHS, (Reported) Aspirin (Aspirin EC) 81 Mg Tabec, 81 MG PO DAILY, (Reported) Cyproheptadine HCl (Cyproheptadine HCl) 4 Mg Tab, 4 MG PO DAILY, (Reported) Dexamethasone (Dexamethasone) 4 Mg Tab, 4 MG PO Q6H Dronabinol (Dronabinol) 5 Mg Cap, 5 MG PO BID, (Reported) Enoxaparin Sodium (Enoxaparin Sodium) 60 Mg/0.6 Ml Inj, 60 MG SC QHS, (Reported) Escitalopram Oxalate (Lexapro) 5 Mg Tab, 5 MG PO DAILY, (Reported) Insulin Aspart (Novolog) 100 U/Ml Inj, 1 DOSE SC TID, (Reported) SLIDING SCALE Insulin Detemir (Levemir) 1 Units/0.01 Ml Susp, 44 UNITS SC BID, (Reported) Metoprolol Tartrate (Metoprolol Tartrate) 12.5 Mg Halftab, 12.5 MG PO BID, ( Reported) Ondansetron HCl (Ondansetron HCl) 8 Mg Tab, 8 MG PO BID, (Reported) Polyethylene Glycol (Miralax) 1 Pow Pow, 17 GM PO DAILY, (Reported) Potassium Chloride (Klor-Con M10) 10 Meq Tabcr, 10 MEQ PO DAILY, (Reported) Prochlorperazine Maleate (Prochlorperazine Maleate) 10 Mg Tab, 10 MG PO QID, ( Reported) Tiotropium [place] Monohydrate (Spiriva Handihaler) 18 Mcg Cap, 1 CAP INH DAILY, (Reported) Scheduled PRN Albuterol Sulfate (Ventolin Hfa) 200 Puff/8 Gm Aers, 2 PUFF INH Q4H PRN for SHORTNESS OF BREATH, (Reported) Docusate Sodium (Colace) 100 Mg Cap, 100 MG PO DAILY PRN for CONSTIPATION, ( Reported) Levalbuterol Hydrochloride (Levalbuterol HCl) 0.63 Mg/3 Ml Neb, 0.63 MG INH QID PRN for SHORTNESS OF BREATH, (Reported) Tramadol HCl (Tramadol HCl) 50 Mg Tab, 50 MG PO Q4H PRN for PAIN, (Reported) Allergies Coded Allergies: Penicillins (Verified Allergy, Intermediate, RASH, 02/18/13) Penicillins Cross Reactors (Verified Allergy, Intermediate, RASH, 02/18/13) Flu Virus Vaccine (Unverified Allergy, Unknown, 05/17/17) Pneumococcal Vaccine (Unverified Allergy, Unknown, ARM SWELLING, 08/03/16) Past Medical History Medical History Stage IV small cell lung cancer with metastases to the liver, brain, and adrenals Anemia Transaminitis Diabetes mellitus type 2 on insulin Anxiety Depression Hyperlipidemia History of pancreatic cancer Surgical History Splenectomy Removal of one half of her pancreas Family History Mother had breast cancer. A sister also has breast cancer as well as throat and vaginal cancer as well. Social History * Smoker: current smoker (she probably smokes approximately 2-3 cigarettes a day now. As of last summer, she and her shared 6 cartons of cigarettes a month for the past 40 years) Alcohol: Denies Drugs: denies Psychosocial History: Anxiety, Depression Lives at home with her . They are retired. Review of Symptoms Other systems It is difficult to elicit a review of systems as she is very feeble and weak, and does not speak much. She does complain of abdominal pain, and she indicates that is largely in the left lower quadrant. Her indicates that she has lost her appetite, and despite using Marinol, she has not eaten much over the past few days. She has lost 6 pounds in the last 1 week. Her also indicates that she has not had a bowel movement in a few days either. Apparently she has not had any nausea, vomiting. She denies any fevers, chills , night sweats. She denies any chest discomfort or palpitation, but she does have shortness of breath and is chronically on 3 L nasal cannula 24 hours a day at home. She denies any swelling or edema in the feet or the ankles. Her capacity to move about is severely limited, she barely can take a few steps to the commode here in the ED room, and she had to be assisted by 2 people. Otherwise, when asked if she has any additional symptoms, she says no, just the abdominal pain is really what is bothering her. Physical Examination General Exam: Positive: Cooperative, Moderate Distress Eye Exam: Positive: Conjunctiva & lids normal, EOMI, Negative: Sclera icteric, Ptosis Neck Exam: Negative: JVD Chest Exam: Positive: Diminished, Negative: Rales, Rhonchi, Wheezing Heart Exam: Positive: Rate Normal, Regular Rhythm, Normal S1, Normal S2, Negative: Murmurs, Rubs Telemetry: Positive: No significant arrhythmia Abdomen Exam: Positive: Normal bowel sounds, Soft, Tenderness (mainly in the left lower quadrant), Negative: Hepatospenomegaly, Mass Extremity Exam: Positive: Normal pulses, Negative: Edema Skin Exam: Positive: Other skin issue (decreased turgor), Negative: Breakdown, Lesion Vital Signs Vital Signs Date Time Temp Pulse Resp B/P (MAP) Pulse Ox O2 Delivery O2 Flow Rate FiO2 05/23/17 16:14 90 16 148/71 (96) 99 Nasal Cannula 2.0 05/23/17 14:11 97.3 Laboratory Data Labs 24H Laboratory Tests 2 05/23/17 15:54: White Blood Count 20.0H, Red Blood Count 3.22L, Hemoglobin 10.2L, Hematocrit 31.8L, Mean Corpuscular Volume 98.8H, Mean Corpuscular Hemoglobin 31.6, Mean Corpuscular Hemoglobin Concent 32.0, Red Cell Distribution Width 20.2H, Platelet Count 306, Neutrophils (%) (Auto) 86.3H, Lymphocytes (%) (Auto) 7.4L, Monocytes (%) (Auto) 5.3H, Eosinophils (%) (Auto) 0.2, Basophils (%) (Auto) 0.2 , Neutrophils # (Auto) 17.3H, Lymphocytes # (Auto) 1.6, Monocytes # (Auto) 1.1H , Eosinophils # (Auto) 0.0, Basophils # (Auto) 0.0, Large Unclassified Cells % 0.7, Large Unclassified Cells # 0.1, Anion Gap 10, Glomerular Filtration Rate > 60.0, Calcium Level 9.1, Aspartate Amino Transf (AST/SGOT) 173H, Alanine Aminotransferase (ALT/SGPT) 316H, Alkaline Phosphatase 472H, Total Bilirubin 5.7H, Direct Bilirubin 4.8H, B-Type Natriuretic Peptide 216H, Total Protein 7.2 , Albumin 2.9L, Albumin/Globulin Ratio 0.67L, Lipase 815H 05/23/17 16:37: Blood Gas Bicarbonate Standard 26.0, Arterial Blood pH 7.428, Arterial Blood Partial Pressure CO2 40.4, Arterial Blood Partial Pressure O2 131.2H, Arterial Blood Total CO2 27.3, Arterial Blood HCO3 26.1H, Arterial Blood Base Excess 1.6 , Arterial Blood Oxygen Saturation 99.0 CBC/BMP Laboratory Tests 05/23/17 15:54 Red Blood Count 3.22 L, Mean Corpuscular Volume 98.8 H, Mean Corpuscular Hemoglobin 31.6, Mean Corpuscular Hemoglobin Concent 32.0, Red Cell Distribution Width 20.2 H, Neutrophils (%) (Auto) 86.3 H, Lymphocytes (%) (Auto ) 7.4 L, Monocytes (%) (Auto) 5.3 H, Eosinophils (%) (Auto) 0.2, Basophils (%) ( Auto) 0.2, Neutrophils # (Auto) 17.3 H, Lymphocytes # (Auto) 1.6, Monocytes # ( Auto) 1.1 H, Eosinophils # (Auto) 0.0, Basophils # (Auto) 0.0 Problems (1) Primary small cell malignant neoplasm of lung, stage 4 Status: Chronic (2) Abdominal pain Status: Acute Problem Text: Her pain will be treated with 1-2 tablets of Percocet every 4 hours as needed for pain, she will also have an tramadol available, and she will also have 2 mg of morphine IV every 2 hours when necessary if her pain control is insufficient. (3) Hyponatremia Status: Acute Problem Text: This appears to be hypovolemic hyponatremia, likely secondary to dehydration and her decreased oral intake. Urinalysis, urine sodium, urine creatinine, and urine osmolality has been ordered. Will wait on ordering a a.m. cortisol, and we will just begin initiation of gentle rehydration with normal saline, and see if this will correct it. If her hyponatremia is persistent, this may warrant further diagnostic investigation. (4) Leukocytosis Status: Chronic Problem Text: Most likely secondary to the administration of Decadron (5) Cerebral edema Status: Acute Problem Text: Secondary to metastatic Cancer, we'll continue with Decadron (6) Macrocytic anemia Status: Chronic (7) Transaminitis Status: Chronic Problem Text: Likely secondary to metastatic cancer (8) History of pancreatic cancer Status: Chronic (9) Hyperbilirubinemia Status: Acute Problem Text: Also likely due to liver metastases, this appears to be worsening from her prior admission (10) Hypochloremia Status: Acute Problem Text: It is anticipated that this will resolve with the administration of normal saline (11) Dehydration Status: Acute (12) Anorexia Status: Acute Problem Text: Will continue with Marinol (13) Cachexia Status: Chronic (14) Diabetes Permanent Comment: Reason for Deletion: Last Edited By: Glenda Valles on May 23, 2017 18:59 Status: Chronic (15) Depression Status: Chronic (16) Brain metastases Status: Acute (17) Dyslipidemia Status: Chronic (18) Weakness generalized Status: Acute (19) Diabetes mellitus type 2, insulin dependent Plan / VTE VTE Prophylaxis Ordered?: Yes (Lovenox twice a day as the patient has metastatic cancer) Plan Plan Otherwise, we will continue with the remainder of her home medications for her chronic conditions as listed in the past medical history, please see medication list. I have seen and examined the patient, and discussed the case with the resident. I agree with the following assessment mentioned above. Disposition Her prognosis is guarded, recommend continued conversations with the family about palliative care. GLENDA VALLES DO May 23, 2017 19:01 SHANAE NUÑEZ MD May 25, 2017 20:05
[2017-05-23 20:00] VITALS: BP 127/60
[2017-05-23] MEDS: NS 1,000 ML IV SCH (20:52)
[2017-05-23] MEDS: DRONABINOL 2.5 MG CAP (MARINOL) PO SCH (20:53)
[2017-05-23] MEDS: ONDANSETRON 4 MG TAB (S0181) PO SCH (20:54)
[2017-05-23] MEDS: SENOKOT S TAB PO SCH (20:54)
[2017-05-23] MEDS: METOPROLOL TART 12.5 MG PER 1/2 TAB PO SCH (20:54)
[2017-05-23] MEDS: LEVEMIR (INSULIN DETEMIR) 1 UNITS/0.01ML SC SCH (20:55)
[2017-05-23] MEDS ORDERED: AMITRIPTYLINE 25 MG TAB PO SCH (21:00)
[2017-05-23] MEDS ORDERED: HumaLOG INSULIN (NovoLOG) PER UNIT SC SCH (21:00)
[2017-05-23] MEDS ORDERED: ENOXAPARIN 60 MG/0.6 ML SYR (J1650) SC SCH (21:00)
[2017-05-23 22:31] VITALS: BP 150/67; PULSE 98
[2017-05-23] MEDS: POTASSIUM CHLORIDE 10 MEQ SR TABLET PO SCH (22:43)
[2017-05-23 22:49] LABS: OSMOLALITY URINE 742 MOSM/KG (500-800)
[2017-05-23] MEDS: PROCHLORPERAZINE 5 MG TAB (S0183) PO SCH (23:11)
[2017-05-23] MEDS: ESCITALOPRAM OXALATE 5MG TABLET (LEXAPRO) PO SCH (23:11)
--- NOTE | 2017-05-23 23:33 | IPNPDOC ---
Subjective Date Seen The patient was seen on 05/23/17. Subjective Chief Complaint/HPI The patient is a 66-year-old female admitted with a reason for visit of Abdominal Pain,Primary Small Cell Malignant Neopla. Objective Physical Examination General Exam: Positive: Cooperative, Moderate Distress Eye Exam: Positive: Conjunctiva & lids normal, EOMI, Negative: Sclera icteric, Ptosis Neck Exam: Negative: JVD Chest Exam: Positive: Diminished, Negative: Rales, Rhonchi, Wheezing Heart Exam: Positive: Rate Normal, Regular Rhythm, Normal S1, Normal S2, Negative: Murmurs, Rubs Telemetry: Positive: No significant arrhythmia Abdomen Exam: Positive: Normal bowel sounds, Soft, Tenderness (mainly in the left lower quadrant), Negative: Hepatospenomegaly, Mass Extremity Exam: Positive: Normal pulses, Negative: Edema Skin Exam: Positive: Other skin issue (decreased turgor), Negative: Breakdown, Lesion Assessment /Plan Problems (1) Primary small cell malignant neoplasm of lung, stage 4 Status: Chronic (2) Abdominal pain Status: Acute Problem Text: Her pain will be treated with 1-2 tablets of Percocet every 4 hours as needed for pain, she will also have an tramadol available, and she will also have 2 mg of morphine IV every 2 hours when necessary if her pain control is insufficient. (3) Hyponatremia Status: Acute Problem Text: This appears to be hypovolemic hyponatremia, likely secondary to dehydration and her decreased oral intake. Urinalysis, urine sodium, urine creatinine, and urine osmolality has been ordered. Will wait on ordering a a.m. cortisol, and we will just begin initiation of gentle rehydration with normal saline, and see if this will correct it. If her hyponatremia is persistent, this may warrant further diagnostic investigation. (4) Leukocytosis Status: Chronic Problem Text: Most likely secondary to the administration of Decadron (5) Cerebral edema Status: Acute Problem Text: Secondary to metastatic Cancer, we'll continue with Decadron (6) Macrocytic anemia Status: Chronic (7) Transaminitis Status: Chronic Problem Text: Likely secondary to metastatic cancer (8) History of pancreatic cancer Status: Chronic (9) Hyperbilirubinemia Status: Acute Problem Text: Also likely due to liver metastases, this appears to be worsening from her prior admission (10) Hypochloremia Status: Acute Problem Text: It is anticipated that this will resolve with the administration of normal saline (11) Dehydration Status: Acute (12) Anorexia Status: Acute Problem Text: Will continue with Marinol (13) Cachexia Status: Chronic (14) Depression Status: Chronic (15) Brain metastases Status: Acute (16) Dyslipidemia Status: Chronic (17) Weakness generalized Status: Acute (18) Diabetes mellitus type 2, insulin dependent Plan/VTE VTE Prophylaxis Ordered?: Yes (Lovenox twice a day as the patient has metastatic cancer) Plan Called to evaluate pt at 2300 for pressure in mid chest, stat. EKG ordered did not demonstrate ST elevation nor depression, non-concerning for ACS. Suspect this is 2/2 patients anxiety as she was acutely anxious and tearful upon exam. . Vitals were stable on exam, CP was mid-sternal, worse w. inspiration and palpitation of the area, RRR, no appreciable murmurs, lung sounds diminished throughout, otherwise no rales, rhonchi or crackles appreciated.Pt will receive her scheduled percocet and ultram, will monitor for pain control, if not sufficient may consider additional agent add on for pain and/or anxiolytic. Pt. may also use lidocaine patch for pain.- CK VS, I&O, 24H, Fishbone Vital Signs/I&O Vital Signs Date Time Temp Pulse Resp B/P (MAP) Pulse Ox O2 Delivery O2 Flow Rate FiO2 05/23/17 23:06 17 05/23/17 22:31 98 150/67 (94) 99 Nasal Cannula 3.0 05/23/17 20:00 97.8 Laboratory Data 24H LABS Laboratory Tests 2 05/23/17 15:54: White Blood Count 20.0H, Red Blood Count 3.22L, Hemoglobin 10.2L, Hematocrit 31.8L, Mean Corpuscular Volume 98.8H, Mean Corpuscular Hemoglobin 31.6, Mean Corpuscular Hemoglobin Concent 32.0, Red Cell Distribution Width 20.2H, Platelet Count 306, Neutrophils (%) (Auto) 86.3H, Lymphocytes (%) (Auto) 7.4L, Monocytes (%) (Auto) 5.3H, Eosinophils (%) (Auto) 0.2, Basophils (%) (Auto) 0.2 , Neutrophils # (Auto) 17.3H, Lymphocytes # (Auto) 1.6, Monocytes # (Auto) 1.1H , Eosinophils # (Auto) 0.0, Basophils # (Auto) 0.0, Large Unclassified Cells % 0.7, Large Unclassified Cells # 0.1, Anion Gap 10, Glomerular Filtration Rate > 60.0, Calcium Level 9.1, Aspartate Amino Transf (AST/SGOT) 173H, Alanine Aminotransferase (ALT/SGPT) 316H, Alkaline Phosphatase 472H, Total Bilirubin 5.7H, Direct Bilirubin 4.8H, B-Type Natriuretic Peptide 216H, Total Protein 7.2 , Albumin 2.9L, Albumin/Globulin Ratio 0.67L, Lipase 815H 05/23/17 16:37: Blood Gas Bicarbonate Standard 26.0, Arterial Blood pH 7.428, Arterial Blood Partial Pressure CO2 40.4, Arterial Blood Partial Pressure O2 131.2H, Arterial Blood Total CO2 27.3, Arterial Blood HCO3 26.1H, Arterial Blood Base Excess 1.6 , Arterial Blood Oxygen Saturation 99.0 05/23/17 20:07: Bedside Glucose (Misc Panel) 483H 05/23/17 22:15: Urine Appearance CLEAR, Urine Color LADARIUS, Urine pH 6.0, Urine Specific [place] 1.043, Urine Protein NEGATIVE, Urine Glucose (UA) 3+H, Urine Ketones 1+H, Urine Urobilinogen 2.0H, Urine Bilirubin NEGATIVE, Urine Leukocyte Esterase NEGATIVE, Urine Blood NEGATIVE, Urine Nitrite NEGATIVE, Urine WBC (Auto) 6H, Urine RBC ( Auto) 3, Urine Hyaline Casts (Auto) 0, Urine Bacteria (Auto) NEGATIVE, Urine Squamous Epithelial Cells 1, Urine Sperm (Auto) , Urine Random Osmolality 742, Urine Random Creatinine 34.5, Urine Random Sodium 81 CBC/BMP Laboratory Tests 05/23/17 15:54 Red Blood Count 3.22 L, Mean Corpuscular Volume 98.8 H, Mean Corpuscular Hemoglobin 31.6, Mean Corpuscular Hemoglobin Concent 32.0, Red Cell Distribution Width 20.2 H, Neutrophils (%) (Auto) 86.3 H, Lymphocytes (%) (Auto ) 7.4 L, Monocytes (%) (Auto) 5.3 H, Eosinophils (%) (Auto) 0.2, Basophils (%) ( Auto) 0.2, Neutrophils # (Auto) 17.3 H, Lymphocytes # (Auto) 1.6, Monocytes # ( Auto) 1.1 H, Eosinophils # (Auto) 0.0, Basophils # (Auto) 0.0 GME ATTESTATION GME ATTESTATION My preceptor for this patient encounter was physically present in the building during the encounter and was fully available. As needed, all aspects of the patient interview, examination, medical decision making process, and medical care plan development were reviewed and approved by the preceptor. Preceptor is aware and concurs with the plan as stated in the body of this note and will attest to such by his/her cosignature. INDER ROWAN DO May 23, 2017 23:33
[2017-05-24 06:00] VITALS: BP 128/60
--- NOTE | 2017-05-24 07:29 | ECGEPIP ---
Stationary ECG Study [facility] Test Date: 2017-05-23 Pat Name: LEN RUIZ Department: Room: [place] [address] Gender: F Strip Deburrer: : 1950 Requested By: INDER ROWAN Order Number: [id number] Reading MD: Polina Schwartz Measurements Intervals [place] Rate: 88 P: 55 CO: 140 QRS: 57 QRSD: 75 T: 66 QT: 351 QTc: 425 Interpretive Statements SINUS RHYTHM POSSIBLE LEFT ATRIAL ENLARGEMENT MODERATE T-WAVE ABNORMALITY, CONSIDER ANTERIOR ISCHEMIA NEW C/W 05/17/17 Electronically Signed On 05-24-2017 7:29:01 EDT by Polina Schwartz
[2017-05-24] MEDS: HumaLOG INSULIN (NovoLOG) PER UNIT SC SCH ×2 (07:30→11:54)
[2017-05-24 07:46] LABS: MEAN CORPUSCULAR HEMOGLOBIN 31.9 pg (27.0-33.0); MEAN CORPUSCULAR HGB CONC 32.8 g/dl (32.0-36.5); MEAN CORPUSCULAR VOLUME 97.3 fl (80.0-96.0); RED CELL DISTRIBUTION WIDTH 20.6 % (11.5-14.5); WHITE BLOOD COUNT 20.9 K/mm3 (4.0-10.0)
[2017-05-24 08:05] LABS: ANION GAP 5 MEQ/L (8-16); BLOOD UREA NITROGEN 16 MG/DL (7-18); CALCIUM LEVEL 8.6 MG/DL (8.8-10.2); CARBON DIOXIDE LEVEL 31 MEQ/L (21-32); CHLORIDE LEVEL 96 MEQ/L (98-107); CREATININE FOR GFR 0.37 MG/DL (0.55-1.02); GLOMERULAR FILTRATION RATE > 60.0 (>45); GLUCOSE, FASTING 177 MG/DL (80-110); SODIUM LEVEL 132 MEQ/L (136-145)
[2017-05-24 08:55] VITALS: BP 128/60
[2017-05-24] MEDS: METOPROLOL TART 12.5 MG PER 1/2 TAB PO SCH (08:55)
[2017-05-24] MEDS: POTASSIUM CHLORIDE 10 MEQ SR TABLET PO SCH (08:56)
[2017-05-24] MEDS: DRONABINOL 2.5 MG CAP (MARINOL) PO SCH (08:56)
[2017-05-24] MEDS: ONDANSETRON 4 MG TAB (S0181) PO SCH (08:57)
[2017-05-24] MEDS: LEVEMIR (INSULIN DETEMIR) 1 UNITS/0.01ML SC SCH (08:57)
[2017-05-24] MEDS: SENOKOT S TAB PO SCH (08:57)
[2017-05-24] MEDS ORDERED: MIRALAX *UNIT DOSE* 17GM PACKET PO SCH (09:00)
[2017-05-24] MEDS ORDERED: ASPIRIN 81 MG ENTERIC TAB PO SCH (09:00)
[2017-05-24] MEDS: PROCHLORPERAZINE 5 MG TAB (S0183) PO SCH (09:00)
[2017-05-24] MEDS: ESCITALOPRAM OXALATE 5MG TABLET (LEXAPRO) PO SCH (09:00)
[2017-05-24] MEDS ORDERED: CYPROHEPTADINE 4 MG TAB PO SCH (09:00)
[2017-05-24] MEDS ORDERED: LORazepam 2 MG/ML VIAL (J2060) IV STA (10:49)
[2017-05-24] MEDS: NS 1,000 ML IV SCH (10:55)
[2017-05-24] MEDS ORDERED: SCOPOLAMINE 1.5 MG TRANSDERMAL TD PRN (11:00)
--- NOTE | 2017-05-24 12:29 | IPNPDOC ---
Text Note Date of Service The patient was seen on 05/24/17. 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 She presented to the hospital with intractable abdominal pain. Patient was recently admitted from 05/18-05/22/17 for the same presentation. Upon discharge her abdominal pain had resolved and she followed up with her oncologist, Dr. Roxana Gonsalez ([facility]). At that time she and her were told that chemotherapy had a <5-10% chance of success and that CARBON ACCOUNTANT was a reasonable option. Patient was seen and examined at the bedside with her present. At this point i reiterated the severity and extent of her Stage IV lung Cancer. At this point the patient has expression, "I'm done, i can't do this anymore." I have explained to the that CARBON ACCOUNTANT would be a very reasonable option at this point in time. After some time, agrees that he doesn't want to cause anymore suffering. Patient's sister and brother in law were present and has signed the updated MOLST form to make the patient CARBON ACCOUNTANT. Objective: Vitals (See below) General: Lying in bed, jaundiced, mild distress, uncomfortable, agitated, awake + alert Full evaluation not completed Assessment and plan: 1. Small cell lung cancer - Stage IV - metastasis to brain, liver and adrenal glands - Worsening of metastasis based on recent imaging - Discussed with patient's oncologist last week Dr. Roxana Mayo, and her college today who was covering for her - CARBON ACCOUNTANT is a very reasonable option given her current problems and extent of disease - has updated MOLST form, family and charge nurse ([place]) present at bedside - CARBON ACCOUNTANT order set has been ordered; medications reviewed and discontinued as required 2. Vasogenic cerebral edema - 2/2 brain metastasis - will c/w Decadron 3. Transaminitis - 2/2 liver metastasis 4. Elevated Bilirubin - 2/2 liver metastasis 5. Hyponatremia 6. Leukocytosis 7. Macrocytic anemia 8. Hyperglycemia - 2/2 Poorly controlled IDDM2 and Glucocorticoids - c/w Levemir and ISS 9. Failure to thrive / Cachexia 10. Depression 11. DLP 12. DVT prophylaxis - will DC Lovenox Code status: - DNR / DNI - CARBON ACCOUNTANT Disposition: - Will get hospice consult; anticipating placement to Hospice House VS,Fishbone, I+O VS, Fishbone, I+O Laboratory Tests 05/23/17 15:54 Red Blood Count 3.22 L, Mean Corpuscular Volume 98.8 H, Mean Corpuscular Hemoglobin 31.6, Mean Corpuscular Hemoglobin Concent 32.0, Red Cell Distribution Width 20.2 H, Neutrophils (%) (Auto) 86.3 H, Lymphocytes (%) (Auto ) 7.4 L, Monocytes (%) (Auto) 5.3 H, Eosinophils (%) (Auto) 0.2, Basophils (%) ( Auto) 0.2, Neutrophils # (Auto) 17.3 H, Lymphocytes # (Auto) 1.6, Monocytes # ( Auto) 1.1 H, Eosinophils # (Auto) 0.0, Basophils # (Auto) 0.0 05/24/17 07:28 Red Blood Count 3.12 L, Mean Corpuscular Volume 97.3 H, Mean Corpuscular Hemoglobin 31.9, Mean Corpuscular Hemoglobin Concent 32.8, Red Cell Distribution Width 20.6 H, Calcium Level 8.6 L Vital Signs Date Time Temp Pulse Resp B/P (MAP) Pulse Ox O2 Delivery O2 Flow Rate FiO2 05/24/17 08:55 86 128/60 05/24/17 06:52 16 05/24/17 06:00 96.7 100 Nasal Cannula 3.0 I&O- Last 24 Hours up to 6 AM 05/24/17 06:00 Intake Total 1260 ml Output Total 1050 ml Balance 210 ml JAC TOLEDO MD May 24, 2017 12:29
[2017-05-24 13:00] LABS: ALBUMIN 2.8 GM/DL (3.2-5.2); ALBUMIN/GLOBULIN RATIO 0.88 (1.00-1.93); ALKALINE PHOSPHATASE 472 U/L (45-117); ALT/SGPT 345 U/L (12-78); AST/SGOT 286 U/L (15-37); BILIRUBIN,TOTAL 6.3 MG/DL (0.2-1.0)
[2017-05-24] MEDS: MORPHINE 2 MG/ML 1ML SYRINGE IV PRN ×2 (13:23→19:38)
[2017-05-24] MEDS: dexameTHASONE 4 MG/ML 1ML VIAL (J1100) IV SCH ×2 (15:08→19:38)
[2017-05-24] MEDS: LORazepam 2 MG/ML VIAL (J2060) IV PRN ×2 (17:41→19:37)
[2017-05-25] MEDS: dexameTHASONE 4 MG/ML 1ML VIAL (J1100) IV SCH ×4 (01:20→19:46)
[2017-05-25] MEDS: MORPHINE 2 MG/ML 1ML SYRINGE IV PRN ×7 (02:37→21:58)
[2017-05-25 05:59] LABS: MEAN CORPUSCULAR HEMOGLOBIN 32.1 pg (27.0-33.0); MEAN CORPUSCULAR HGB CONC 32.4 g/dl (32.0-36.5); RED CELL DISTRIBUTION WIDTH 21.3 % (11.5-14.5)
[2017-05-25 06:14] LABS: ANION GAP 8 MEQ/L (8-16); CALCIUM LEVEL 9.3 MG/DL (8.8-10.2); CARBON DIOXIDE LEVEL 29 MEQ/L (21-32); CHLORIDE LEVEL 97 MEQ/L (98-107); CREATININE FOR GFR 0.57 MG/DL (0.55-1.02); GLUCOSE, FASTING 59 MG/DL (80-110); POTASSIUM SERUM 4.5 MEQ/L (3.5-5.1); SODIUM LEVEL 134 MEQ/L (136-145)
[2017-05-25 06:20] LABS: WHITE BLOOD COUNT 32.9 K/mm3 (4.0-10.0)
[2017-05-25 06:28] LABS: BLOOD UREA NITROGEN 22 MG/DL (7-18); GLOMERULAR FILTRATION RATE > 60.0 (>45)
--- NOTE | 2017-05-25 10:49 | IPNPDOC ---
Text Note Date of Service The patient was seen on 05/25/17. 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 She presented to the hospital with intractable abdominal pain. Patient was recently admitted from 05/18-05/22/17 for the same presentation. Upon discharge her abdominal pain had resolved and she followed up with her oncologist, Dr. Roxana Gonsalez ([facility]). At that time she and her were told that chemotherapy had a <5-10% chance of success and that MATERNAL CHILD NURSE was a reasonable option. Patient was seen and examined at the bedside with her and son present. Patient was asleep at the time of arrival, I have spoke with the and son and answered all their questions. I have reiterated to them that this was a good decision given her current physical state. I have advised them that no additional lab work will be taken. Objective: Vitals (See below) General: Lying in bed, jaundiced, mild distress, asleep Full evaluation not completed Assessment and plan: 1. 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 Roxana Mayo, she advised that this is an appropriate option given poor response to chemotherapy - Medications not required have been discontinued - Will c/w comfort measures only at this time and decadron to assist with vasogenic edema (symptomatic relief of headaches) 2. Vasogenic cerebral edema - 2/2 brain metastasis 3. Transaminitis - 2/2 liver metastasis 4. Elevated Bilirubin - 2/2 liver metastasis 5. Hyponatremia 6. Leukocytosis 7. Macrocytic anemia 8. Hyperglycemia - 2/2 Poorly controlled IDDM2 and Glucocorticoids - s/p Insulin and Glucose checks 9. Failure to thrive / Cachexia 10. Depression 11. DLP 12. s/p DVT prophylaxis Code status: - DNR / DNI - MATERNAL CHILD NURSE Disposition: - Hospice consult has been notified [facility], I+[facility], [facility] Laboratory Tests 05/25/17 05:33 Red Blood Count 3.18 L, Mean Corpuscular Volume 99.0 H, Mean Corpuscular Hemoglobin 32.1, Mean Corpuscular Hemoglobin Concent 32.4, Red Cell Distribution Width 21.3 H, Calcium Level 9.3 Vital Signs Date Time Temp Pulse Resp B/P (MAP) Pulse Ox O2 Delivery O2 Flow Rate FiO2 05/25/17 06:15 Nasal Cannula 3.0 05/24/17 19:45 16 3 05/24/17 08:55 86 128/60 05/24/17 06:00 96.7 I&O- Last 24 Hours up to 6 AM 05/25/17 05:59 Intake Total 580 ml Output Total 1200 ml Balance -620 ml JAC TOLEDO MD May 25, 2017 10:49
[2017-05-25] MEDS: LORazepam 2 MG/ML VIAL (J2060) IV PRN (17:46)
[2017-05-26] MEDS: MORPHINE 2 MG/ML 1ML SYRINGE IV PRN ×10 (00:15→23:57)
[2017-05-26] MEDS: LORazepam 2 MG/ML VIAL (J2060) IV PRN ×4 (00:20→18:20)
[2017-05-26] MEDS: dexameTHASONE 4 MG/ML 1ML VIAL (J1100) IV SCH ×4 (02:23→19:50)
--- NOTE | 2017-05-26 08:31 | IPNPDOC ---
Text Note Date of Service The patient was seen on 05/26/17. NOTE Subjective: Lethargic. Appears comfortable. Objective: Vitals: (see below) General: No acute distress, laying comfortably in bed. HEENT: Moist mucous membranes. Neck: No JVD or lymphadenopathy Cardiac: RRR, No murmurs Pulm: Coarse crackles at the bases b/l. No wheezing, rhonchi Abd: Diffuse tenderness on palpation. No rebound/guarding/rigidity.ND + BS Ext: No edema or cyanosis Labs (see below) Images: CXR 05/17/17 Impression: Left upper lobe opacity improved compared to prior examination. Underlying chronic changes. No further acute consolidation, effusion, or pneumothorax. CTA Chest 05/17/17 Impression: 1. No evidence for pulmonary embolus. Normal thoracic aorta. 2. Left-sided infiltrates as well as soft tissue along the left side of the mediastinum and left hilum again identified and minimally improved compared to 03/17/2017. 3. Increased metastatic disease involving the liver, bilateral adrenal glands, and abdominal adenopathy. CT abd/pelvis 05/17/17 The liver demonstrates severe diffuse metastatic disease which has considerably increased throughout the liver. Adenopathy in the upper abdomen and mabel hepatis region has increased as well with the previously noted 2.3 cm node now measuring 3 cm. A new right adrenal metastasis measures 2.3 cm diameter, and in the left adrenal metastasis now measures 4.4 cm maximal diameter and previously measured 3.3 cm. Retroperitoneal lymph nodes at the level of the kidneys is also increased from prior examinations with multiple lymph nodes now measuring up to 2.2 cm diameter. No ascites. No free air. The enteric system is without obstruction or acute inflammatory process. Pelvis demonstrates normal bladder and age-appropriate stable uterus/adnexa. Atherosclerotic changes to the vasculature noted without aneurysm or dissection. Skeletal structures demonstrate age-related degenerative changes. Impression: Significantly increased metastatic disease with increased hepatic masses, abdominal and retroperitoneal adenopathy, and bilateral adrenal metastases. CT Head 05/17/17 Impression: Bilateral vasogenic edema with left temporal lobe and internal capsule high density lesions compatible with known metastatic disease. Findings are similar to those identified on recent MRI dated 05/14/2017. MRI Brain 05/17/17 IMPRESSION: Progressive intracranial metastatic disease with today's study showing numerous enhancing metastatic nodules bilaterally. Assessment/Plan 1. Abdominal pain secondary to metastatic disease with associated transaminitis. LFTs improving. CT abdomen and pelvis (see above). Continue to trend LFTs. Zofran and Protonix. Had been on chemotherapy on 05/03. Pain control. 2. Cerebral edema secondary to metastatic cancer. On Decadron 3. Metastatic lung disease - previously on chemotherapy 4. Anemia and thrombocytopenia status post chemotherapy. 5. Diabetes mellitus- 6. Anxiety/depression- continue home meds 7. Hyperlipidemia 8. History of pancreatic tumor 9. 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 Hospice to speak with family. VS,Fishbone, I+O VS, Fishbone, I+O Vital Signs Date Time Temp Pulse Resp B/P (MAP) Pulse Ox O2 Delivery O2 Flow Rate FiO2 05/25/17 23:00 Nasal Cannula 3.0 05/24/17 19:45 16 3 05/24/17 08:55 86 128/60 05/24/17 06:00 96.7 I&O- Last 24 Hours up to 6 AM 05/26/17 05:59 Intake Total 0 ml Output Total 450 ml Balance -450 ml LENORE DENNISON MD May 26, 2017 08:31
[2017-05-27] MEDS: dexameTHASONE 4 MG/ML 1ML VIAL (J1100) IV SCH ×4 (01:59→21:03)
[2017-05-27] MEDS: LORazepam 2 MG/ML VIAL (J2060) IV PRN ×9 (02:51→21:02)
[2017-05-27] MEDS: MORPHINE 2 MG/ML 1ML SYRINGE IV PRN ×5 (04:15→12:10)
[2017-05-27] MEDS ORDERED: LORazepam 2 MG/ML VIAL (J2060) IV ONE (07:15)
[2017-05-27] MEDS ORDERED: LORazepam 2 MG/ML VIAL (J2060) As Ordered ONE (07:18)
--- NOTE | 2017-05-27 08:28 | IPNPDOC ---
Text Note Date of Service The patient was seen on 05/27/17. NOTE Subjective: Lethargic. Appears comfortable. Objective: Vitals: (see below) General: No acute distress, laying comfortably in bed. HEENT: Moist mucous membranes. Neck: No JVD or lymphadenopathy Cardiac: RRR, No murmurs Pulm: Coarse crackles at the bases b/l. No wheezing, rhonchi Abd: Diffuse tenderness on palpation. No rebound/guarding/rigidity.ND + BS Ext: No edema or cyanosis Labs (see below) Images: CXR 05/17/17 Impression: Left upper lobe opacity improved compared to prior examination. Underlying chronic changes. No further acute consolidation, effusion, or pneumothorax. CTA Chest 05/17/17 Impression: 1. No evidence for pulmonary embolus. Normal thoracic aorta. 2. Left-sided infiltrates as well as soft tissue along the left side of the mediastinum and left hilum again identified and minimally improved compared to 03/17/2017. 3. Increased metastatic disease involving the liver, bilateral adrenal glands, and abdominal adenopathy. CT abd/pelvis 05/17/17 The liver demonstrates severe diffuse metastatic disease which has considerably increased throughout the liver. Adenopathy in the upper abdomen and mabel hepatis region has increased as well with the previously noted 2.3 cm node now measuring 3 cm. A new right adrenal metastasis measures 2.3 cm diameter, and in the left adrenal metastasis now measures 4.4 cm maximal diameter and previously measured 3.3 cm. Retroperitoneal lymph nodes at the level of the kidneys is also increased from prior examinations with multiple lymph nodes now measuring up to 2.2 cm diameter. No ascites. No free air. The enteric system is without obstruction or acute inflammatory process. Pelvis demonstrates normal bladder and age-appropriate stable uterus/adnexa. Atherosclerotic changes to the vasculature noted without aneurysm or dissection. Skeletal structures demonstrate age-related degenerative changes. Impression: Significantly increased metastatic disease with increased hepatic masses, abdominal and retroperitoneal adenopathy, and bilateral adrenal metastases. CT Head 05/17/17 Impression: Bilateral vasogenic edema with left temporal lobe and internal capsule high density lesions compatible with known metastatic disease. Findings are similar to those identified on recent MRI dated 05/14/2017. MRI Brain 05/17/17 IMPRESSION: Progressive intracranial metastatic disease with today's study showing numerous enhancing metastatic nodules bilaterally. Assessment/Plan 1. Abdominal pain secondary to metastatic disease with associated transaminitis. LFTs improving. CT abdomen and pelvis (see above). Continue to trend LFTs. Zofran and Protonix. Had been on chemotherapy on 05/03. Pain control. 2. Cerebral edema secondary to metastatic cancer. On Decadron 3. Metastatic lung disease - previously on chemotherapy 4. Anemia and thrombocytopenia status post chemotherapy. 5. Diabetes mellitus- 6. Anxiety/depression- continue home meds 7. Hyperlipidemia 8. History of pancreatic tumor 9. Left sided pneumonia with leukocytosis - Patient is [employer]. Continue comfort care. Hospice to speak with family. VS,Fishbone, I+O VS, Fishbone, I+O Vital Signs Date Time Temp Pulse Resp B/P (MAP) Pulse Ox O2 Delivery O2 Flow Rate FiO2 05/27/17 06:36 22 Nasal Cannula 3.0 05/24/17 19:45 3 05/24/17 08:55 86 128/60 05/24/17 06:00 96.7 I&O- Last 24 Hours up to 6 AM 05/27/17 06:00 Intake Total 0 ml Output Total 0 ml Balance 0 ml LENORE DENNISON MD May 27, 2017 08:28
[2017-05-27] MEDS ORDERED: MORPHINE 4 MG/ML 1ML SYRINGE IV PRN (12:45)
[2017-05-27] MEDS: MORPHINE 4 MG/ML 1ML SYRINGE IV PRN ×4 (13:55→21:03)
[2017-05-28] MEDS: dexameTHASONE 4 MG/ML 1ML VIAL (J1100) IV SCH ×3 (01:05→14:00)
[2017-05-28] MEDS: MORPHINE 4 MG/ML 1ML SYRINGE IV PRN ×2 (06:03→08:07)
[2017-05-28] MEDS: LORazepam 2 MG/ML VIAL (J2060) IV PRN ×4 (06:03→12:06)
[2017-05-28] MEDS ORDERED: EPIDURAL/PCA KEYS XX PRN (08:45)
[2017-05-28] MEDS ORDERED: MORPHINE SULF IN 0.9% NACL 100 MG in APPROPRIATE DILUENT 1 EA IV SCH ×2 (08:45)
--- NOTE | 2017-05-28 09:53 | IPNPDOC ---
Text Note Date of Service The patient was seen on 05/28/17. NOTE Subjective: Lethargic. Appears comfortable. Shallow breaths and tachypneic. Family Tearful Objective: Vitals: (see below) General: No acute distress, laying comfortably in bed. HEENT: Moist mucous membranes. Neck: No JVD or lymphadenopathy Cardiac: tachycardic, No murmurs Pulm: Shallow breathing Abd: Diffuse tenderness on palpation. No rebound/guarding/rigidity.ND + BS Ext: No edema or cyanosis Labs (see below) Images: CXR 05/17/17 Impression: Left upper lobe opacity improved compared to prior examination. Underlying chronic changes. No further acute consolidation, effusion, or pneumothorax. CTA Chest 05/17/17 Impression: 1. No evidence for pulmonary embolus. Normal thoracic aorta. 2. Left-sided infiltrates as well as soft tissue along the left side of the mediastinum and left hilum again identified and minimally improved compared to 03/17/2017. 3. Increased metastatic disease involving the liver, bilateral adrenal glands, and abdominal adenopathy. CT abd/pelvis 05/17/17 The liver demonstrates severe diffuse metastatic disease which has considerably increased throughout the liver. Adenopathy in the upper abdomen and mabel hepatis region has increased as well with the previously noted 2.3 cm node now measuring 3 cm. A new right adrenal metastasis measures 2.3 cm diameter, and in the left adrenal metastasis now measures 4.4 cm maximal diameter and previously measured 3.3 cm. Retroperitoneal lymph nodes at the level of the kidneys is also increased from prior examinations with multiple lymph nodes now measuring up to 2.2 cm diameter. No ascites. No free air. The enteric system is without obstruction or acute inflammatory process. Pelvis demonstrates normal bladder and age-appropriate stable uterus/adnexa. Atherosclerotic changes to the vasculature noted without aneurysm or dissection. Skeletal structures demonstrate age-related degenerative changes. Impression: Significantly increased metastatic disease with increased hepatic masses, abdominal and retroperitoneal adenopathy, and bilateral adrenal metastases. CT Head 05/17/17 Impression: Bilateral vasogenic edema with left temporal lobe and internal capsule high density lesions compatible with known metastatic disease. Findings are similar to those identified on recent MRI dated 05/14/2017. MRI Brain 05/17/17 IMPRESSION: Progressive intracranial metastatic disease with today's study showing numerous enhancing metastatic nodules bilaterally. Assessment/Plan 1. Abdominal pain secondary to metastatic disease with associated transaminitis. LFTs improving. CT abdomen and pelvis (see above). Continue to trend LFTs. Zofran and Protonix. Had been on chemotherapy on 05/03. Pain control. 2. Cerebral edema secondary to metastatic cancer. On Decadron 3. Metastatic lung disease - previously on chemotherapy 4. Anemia and thrombocytopenia status post chemotherapy. 5. Diabetes mellitus- 6. Anxiety/depression- continue home meds 7. Hyperlipidemia 8. History of pancreatic tumor 9. 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 Morphine changed to drip for increased comfort. VS,Fishbone, I+O VS, Fishbone, I+O Vital Signs Date Time Temp Pulse Resp B/P (MAP) Pulse Ox O2 Delivery O2 Flow Rate FiO2 05/28/17 06:13 18 Nasal Cannula 3.0 05/24/17 19:45 3 05/24/17 08:55 86 128/60 05/24/17 06:00 96.7 I&O- Last 24 Hours up to 6 AM 05/28/17 06:00 Intake Total 0 ml Output Total 0 ml Balance 0 ml LENORE DENNISON MD May 28, 2017 09:53
--- NOTE | 2017-05-28 15:38 | DS.PDOC ---
Discharge Summary General Date of Admission May 25, 2017 at 10:55 Date of Discharge 05/28/17 Attending Physician: LENORE DENNISON MD Specialist/Consultants Involve: JUAN CARLOS RAYO MD Discharge Summary PROCEDURES PERFORMED DURING STAY: None. ADMITTING/DISCHARGE DIAGNOSES: 1. Metastatic Lung cancer to mets to the brain and Liver 2. Cerebral edema secondary to metastatic cancer. On Decadron 3. Metastatic lung disease - previously on chemotherapy 4. Anemia and thrombocytopenia status post chemotherapy. 5. Diabetes mellitus 6. Anxiety/depression 7. Hyperlipidemia 8. History of pancreatic tumor 9. Left sided pneumonia with leukocytosis COMPLICATIONS/CHIEF COMPLAINT: Abdominal Pain,Primary Small Cell Malignant Neopla. HISTORY OF PRESENT ILLNESS/HOSPITAL COURSE: This is a 66-year-old female with past medical history of lung cancer status post metastases to the brain, with a history of radiation to the brain. Patient has been on chemotherapy for the past year. Patient presented complaining of abdominal pain was noted to have transaminitis as well and is metastatic brain lesions with associated cerebral edema. Patient's abdominal pain had significantly worsened and the patient's cerebral edema was treated with Decadron with neurosurgery on board. Dr. Dexter had spoken to the family in detail as well as the patient's oncologist , and given the extremely poor prognosis, the family decided to make the patient comfort measures only. Family was at bedside when the patient . The patient's past day on 05/28/17 and 1:45 PM. TIME SPENT ON DISCHARGE: Greater than minutes. Vital Signs/I&Os Vital Signs Date Time Temp Pulse Resp B/P (MAP) Pulse Ox O2 Delivery O2 Flow Rate FiO2 05/28/17 10:00 Nasal Cannula 3.0 05/28/17 06:13 18 05/24/17 19:45 3 05/24/17 08:55 86 128/60 05/24/17 06:00 96.7 I&O- Last 24 Hours up to 6 AM 05/28/17 06:00 Intake Total 0 ml Output Total 0 ml Balance 0 ml Discharge Medications Scheduled Acetaminophen/Hydrocodone (Hydrocodone/Acetaminophen 5-325 mg) 1 Tab Tab, 1 TAB PO Q6H, (Reported) MDD 4 Amitriptyline HCl (Amitriptyline HCl) 25 Mg Tab, 25 MG PO QHS, (Reported) Aspirin (Aspirin EC) 81 Mg Tabec, 81 MG PO DAILY, (Reported) Cyproheptadine HCl (Cyproheptadine HCl) 4 Mg Tab, 4 MG PO DAILY, (Reported) Dexamethasone (Dexamethasone) 4 Mg Tab, 4 MG PO Q6H Dronabinol (Dronabinol) 5 Mg Cap, 5 MG PO BID, (Reported) Enoxaparin Sodium (Enoxaparin Sodium) 60 Mg/0.6 Ml Inj, 60 MG SC QHS, (Reported) Escitalopram Oxalate (Lexapro) 5 Mg Tab, 5 MG PO DAILY, (Reported) Insulin Aspart (Novolog) 100 U/Ml Inj, 1 DOSE SC TID, (Reported) SLIDING SCALE Insulin Detemir (Levemir) 1 Units/0.01 Ml Susp, 44 UNITS SC BID, (Reported) Metoprolol Tartrate (Metoprolol Tartrate) 12.5 Mg Halftab, 12.5 MG PO BID, ( Reported) Ondansetron HCl (Ondansetron HCl) 8 Mg Tab, 8 MG PO BID, (Reported) Polyethylene Glycol (Miralax) 1 Pow Pow, 17 GM PO DAILY, (Reported) Potassium Chloride (Klor-Con M10) 10 Meq Tabcr, 10 MEQ PO DAILY, (Reported) Prochlorperazine Maleate (Prochlorperazine Maleate) 10 Mg Tab, 10 MG PO QID, ( Reported) Tiotropium [place] Monohydrate (Spiriva Handihaler) 18 Mcg Cap, 1 CAP INH DAILY, (Reported) Scheduled PRN Albuterol Sulfate (Ventolin Hfa) 200 Puff/8 Gm Aers, 2 PUFF INH Q4H PRN for SHORTNESS OF BREATH, (Reported) Docusate Sodium (Colace) 100 Mg Cap, 100 MG PO DAILY PRN for CONSTIPATION, ( Reported) Levalbuterol Hydrochloride (Levalbuterol HCl) 0.63 Mg/3 Ml Neb, 0.63 MG INH QID PRN for SHORTNESS OF BREATH, (Reported) Tramadol HCl (Tramadol HCl) 50 Mg Tab, 50 MG PO Q4H PRN for PAIN, (Reported) Allergies Coded Allergies: Penicillins (Verified Allergy, Intermediate, RASH, 02/18/13) Penicillins Cross Reactors (Verified Allergy, Intermediate, RASH, 02/18/13) Flu Virus Vaccine (Unverified Allergy, Unknown, 05/17/17) Pneumococcal Vaccine (Unverified Allergy, Unknown, ARM SWELLING, 08/03/16) LENORE DENNISON MD May 28, 2017 15:38
== END 2017-05-28 13:45 | disposition expired | DRG 180 ==
LOC: M ED 14:11 → M ED INP 18:13 → M MSPAV 19:35 → OBSVTOIN 05-25 10:55 → M MSPAV 05-25 13:20
PROVIDERS: ADMIT Internal Medicine; ATTEND Internal Medicine
DX: C34.90 Malignant neoplasm of unspecified part of unspecified bronchus or lung (principal); G93.6 Cerebral edema; J18.9 Pneumonia, unspecified organism; C78.7 Secondary malignant neoplasm of liver and intrahepatic bile duct; C79.31 Secondary malignant neoplasm of brain; E87.1 Hypo-osmolality and hyponatremia; R64 Cachexia; Z66 Do not resuscitate; Z51.5 Encounter for palliative care; E78.5 Hyperlipidemia, unspecified; F41.9 Anxiety disorder, unspecified; F32.9 Major depressive disorder, single episode, unspecified; E80.6 Other disorders of bilirubin metabolism; E11.65 Type 2 diabetes mellitus with hyperglycemia; D64.81 Anemia due to antineoplastic chemotherapy; F17.210 Nicotine dependence, cigarettes, uncomplicated; D72.829 Elevated white blood cell count, unspecified; R63.0 Anorexia; E87.8 Other disorders of electrolyte and fluid balance, not elsewhere classified; D69.6 Thrombocytopenia, unspecified; Z92.3 Personal history of irradiation; Z79.82 Long term (current) use of aspirin; Z79.4 Long term (current) use of insulin; Z88.0 Allergy status to penicillin; Z88.7 Allergy status to serum and vaccine; Z92.21 Personal history of antineoplastic chemotherapy; Z85.07 Personal history of malignant neoplasm of pancreas; Z80.49 Family history of malignant neoplasm of other genital organs; Z80.1 Family history of malignant neoplasm of trachea, bronchus and lung; K72.90 Hepatic failure, unspecified without coma